=== PATIENT | female | born 1960 | race Caucasian/White ===

== ENCOUNTER → 2020-09-09 13:20 | Outpatient (BNVA) | payer OTHER, SELFPAY | PROVIDERS: Family Provider Family Medicine; Visit Provider Obstetrics & Gynecology | DX: N95.0 Postmenopausal bleeding (principal); Z12.4 Encounter for screening for malignant neoplasm of cervix; I10 Essential (primary) hypertension; N81.4 Uterovaginal prolapse, unspecified; L90.0 Lichen sclerosus et atrophicus | CPT/HCPCS: 88175; 88305 ==

== ENCOUNTER → 2022-07-21 11:44 | Outpatient (BNVA) | payer OTHER, SELFPAY | PROVIDERS: Family Provider Family Medicine; Visit Provider Family Medicine | DX: E03.9 Hypothyroidism, unspecified (principal); R63.4 Abnormal weight loss; M62.50 Muscle wasting and atrophy, not elsewhere classified, unspecified site; R60.9 Edema, unspecified | CPT/HCPCS: 80053; 82085; 82550; 84439; 84443; 85025; 86140 ==

== ENCOUNTER → 2022-07-22 14:20 | Outpatient (BNVA) | payer OTHER, SELFPAY | PROVIDERS: Family Provider Family Medicine; Visit Provider Family Medicine | DX: E11.9 Type 2 diabetes mellitus without complications (principal) | CPT/HCPCS: 83036 ==

== ENCOUNTER → 2022-10-19 16:36 | Outpatient (BNVA) | payer OTHER, SELFPAY | PROVIDERS: Family Provider Family Medicine; PCP Family Medicine; Visit Provider Family Medicine | DX: E11.9 Type 2 diabetes mellitus without complications (principal) | CPT/HCPCS: 80053; 83036 ==

== ENCOUNTER → 2023-02-04 11:26 | Outpatient (BNVA) | payer OTHER, SELFPAY | PROVIDERS: Family Provider Family Medicine; PCP Family Medicine; Visit Provider Family Medicine | DX: E11.9 Type 2 diabetes mellitus without complications (principal); E55.9 Vitamin D deficiency, unspecified | CPT/HCPCS: 80053; 83036 ==

== ENCOUNTER → 2023-02-05 08:31 | Outpatient (BNVA) | payer OTHER, SELFPAY | PROVIDERS: Family Provider Family Medicine; PCP Family Medicine; Visit Provider Family Medicine | DX: E55.9 Vitamin D deficiency, unspecified | CPT/HCPCS: 82306 ==

== ENCOUNTER → 2023-06-02 11:24 | Outpatient (BNVA) | payer OTHER, SELFPAY | PROVIDERS: Family Provider Family Medicine; PCP Family Medicine; Visit Provider Family Medicine | DX: E55.9 Vitamin D deficiency, unspecified (principal); E11.9 Type 2 diabetes mellitus without complications; I50.9 Heart failure, unspecified; I10 Essential (primary) hypertension; E03.9 Hypothyroidism, unspecified; I50.32 Chronic diastolic (congestive) heart failure; I87.2 Venous insufficiency (chronic) (peripheral); R74.8 Abnormal levels of other serum enzymes | CPT/HCPCS: 80053; 82652; 83036; 83880; 85025 ==

== ENCOUNTER 2023-06-11 08:15 | Outpatient (CLI) | payer OTHER, SELFPAY ==
--- NOTE | 2023-06-11 08:45 | USCV_ITS ---
Nikki Mercado Age: 62 Gender: F : 1960 Exam Date: 06/11/2023 08:52 Ordering Phys: Jacoby Spring MD Technologist: Derik Rodriguez [place] [facility] [place]: CHF BP: 170 / 100 HR: 88 Rhythm: Sinus Technical Quality: Adequate MEASUREMENTS (Male / Female) Normal Values 2D ECHO LV Ejection Fraction MOD 2C 34.9 % LV Ejection Fraction 2C AL 35.5 % LA Diameter 4.1 cm LA Width 3.6 cm LA Height 5.2 cm RA Width 3.9 cm RA Height 4.9 cm Aorta at Sinotubular Diameter 2.4 cm IVC Diameter 2.7 cm M-MODE Aortic Annulus Diameter 2.5 cm LA Ao Ratio MM 1.8 MV E Point Septal Separation 1.2 cm DOPPLER AV Peak Velocity 115.0 cm/s LVOT Peak Velocity 79.0 cm/s MV Peak Velocity 142.0 cm/s MV Area PHT 8.5 cm squared Mitral E to A Ratio 1.8 MV E' Velocity 57.0 cm/s Mitral E to MV E' Ratio 21.0 Mitral E to LV E' Lateral Ratio 15.8 Mitral E to LV E' Septal Ratio 32.5 TR Peak Velocity 450.3 cm/s TR Peak Gradient 81.1 mmHg TR Mean Velocity 312.7 cm/s TR Mean Gradient 45.0 mmHg TR Velocity Time Integral 128.4 cm Right Atrial Pressure 15.0 mmHg Pulmonary Artery Systolic Pressu 96.1 mmHg PV Peak Velocity 73.0 cm/s RV Acceleration Time 0.1 s RV Ejection Time 0.3 s RV AcT/ET 0.4 FINDINGS Left Ventricle Mildly increased left ventricular cavity size. Normal left ventricular wall thickness. Moderately decreased left ventricular systolic function. Global left ventricular hypokinesis. Left ventricular ejection fraction is estimated at 35 %. Grade I/IV diastolic dysfunction (abnormal relaxation filling pattern), normal to mildly elevated filling pressures. Right Ventricle Normal right ventricular size and systolic function. Severe pulmonary hypertension, RVSP 96.1 mmHg. Right Atrium Mildly increased right atrial size. Left Atrium Moderately increased left atrial size. Mitral Valve Structurally normal mitral valve. Mild-moderate mitral valve regurgitation. Aortic Valve Structurally normal trileaflet aortic valve. No aortic valve stenosis. No aortic valve regurgitation. Tricuspid Valve Structurally normal tricuspid valve. [id number] tricuspid valve regurgitation. Pulmonic Valve Pulmonic valve not well visualized. Mild pulmonary valve regurgitation. Pericardium Normal pericardium without effusion. Aorta Normal ascending aorta dimension. IVC Dilated IVC with decreased respiratory variation. CONCLUSIONS Mildly increased left ventricular cavity size. Normal left ventricular wall thickness. Moderately decreased left ventricular systolic function. Global left ventricular hypokinesis. Left ventricular ejection fraction is estimated at 35 %. Grade I/IV diastolic dysfunction (abnormal relaxation filling pattern), normal to mildly elevated filling pressures. Normal right ventricular size and systolic function. Severe pulmonary hypertension, RVSP 96.1 mmHg. Mildly increased right atrial size. Moderately increased left atrial size. Structurally normal mitral valve. Mild-moderate mitral valve regurgitation. Dilated IVC with decreased respiratory variation. There are no prior echocardiogram studies to compare. Dr. Javy Pardo MD (Electronically Signed) Final Date: 11 June 2023 13:14 S
== END 2023-06-11 08:16 | disposition home or self-care (01) ==
LOC: RAD 08:15
PROVIDERS: Family Provider Family Medicine; PCP Family Medicine; Visit Provider Family Medicine
DX: I50.9 Heart failure, unspecified (principal); I34.0 Nonrheumatic mitral (valve) insufficiency; I51.7 Cardiomegaly
CPT/HCPCS: 93306

== ENCOUNTER → 2023-06-24 14:57 | Outpatient (BNVA) | payer OTHER, SELFPAY | PROVIDERS: Family Provider Family Medicine; PCP Family Medicine; Visit Provider Internal Medicine | DX: R07.9 Chest pain, unspecified (principal); I10 Essential (primary) hypertension; I87.2 Venous insufficiency (chronic) (peripheral); I50.9 Heart failure, unspecified | CPT/HCPCS: 36415; 80048; 83880; 93005 ==

== ENCOUNTER 2023-07-16 10:24 | Outpatient (CLI) | payer OTHER, SELFPAY ==
[2023-07-16 12:12] LABS: Anion Gap 14.7 (5-19); Carbon Dioxide 40 mmol/L (22-29); Chloride 86 mmol/L (98-107); Glomerular Filtration Rate 25.4 mL/min (90-130); Glucose 182 mg/dL (65-115); NT Pro B Type Natriuretic Pept 5088 pg/mL (0-125); Sodium 138 mmol/L (136-145)
[2023-07-16 13:34] LABS: Osmolality Calculated 337 mOsm/kg (285-295)
[2023-07-16 13:36] LABS: Blood Urea Nitrogen 143 mg/dL (8-23); Potassium 2.7 mmol/L (3.5-5.1)
== END 2023-07-16 10:25 | disposition home or self-care (01) ==
LOC: LAB 10:27
PROVIDERS: Family Provider Family Medicine; PCP Family Medicine; Visit Provider Internal Medicine
DX: I50.20 Unspecified systolic (congestive) heart failure (principal)
CPT/HCPCS: 36415; 80048; 83880

== ENCOUNTER → 2023-07-21 10:36 | Outpatient (BNVA) | payer OTHER, SELFPAY | PROVIDERS: PCP Family Medicine; Visit Provider Nurse Practitioner Family | DX: I10 Essential (primary) hypertension (principal); I50.20 Unspecified systolic (congestive) heart failure | CPT/HCPCS: 36415; 80048; 83880 ==

== ENCOUNTER → 2023-07-28 09:22 | Outpatient (BNVA) | payer OTHER, SELFPAY | PROVIDERS: PCP Family Medicine; Visit Provider Internal Medicine | DX: I50.20 Unspecified systolic (congestive) heart failure (principal); I50.9 Heart failure, unspecified; I10 Essential (primary) hypertension; R58 Hemorrhage, not elsewhere classified | CPT/HCPCS: 80048; 85025; 85610 ==

== ENCOUNTER 2023-07-30 13:20 | Emergency (ER) | payer OTHER, SELFPAY ==
[2023-07-30 13:24] VITALS: BP 182/81; PULSE 85; RESP 16; TEMP 36.4; O2SAT 95
--- NOTE | 2023-07-30 13:24 | XRR_ITS ---
PROCEDURE INFORMATION: Exam: XR Chest Exam date and time: 07/30/2023 1:46 PM Age: 62 years old Clinical indication: Shortness of breath; Additional info: SOB TECHNIQUE: Imaging protocol: Radiologic exam of the chest. Views: 1 view. COMPARISON: No relevant prior studies available. FINDINGS: Lungs: Hypoventilatory changes in each lower lobe with a possible superimposed infiltrate laterally on the left. Pleural spaces: Slightly blunted costophrenic angles suggests small effusions. Heart/Mediastinum: Mild cardiomegaly accentuated by the AP positioning. Bones/joints: Unremarkable. XR/XR chest 1V portable [id number] IMPRESSION: Possible small effusions. Bibasilar atelectasis with possible superimposed left-sided infiltrate.
--- NOTE | 2023-07-30 13:27 | W.ED.GENADLT ---
HPI - General Adult General: Chief complaint: General Medical Stated complaint: dr cm, retaining fluid Time Seen by Provider: 07/30/23 13:25 History of Present Illness: 62-year-old female presents to the emergency department stating that she has been retaining more more fluid lately. She states that she has edema to her mid thighs she does take 2 mg of Bumex daily for the previous 1 week and states that it is not helping. She states she has seen Dr. Spring and Dr. Ricketts the vacuum filter operator who advised her to come to the emergency department to be evaluated. Her significant other who is with her in the room states that her ejection fraction was 35% previously she states that they were attempting to reevaluate for additional worsening over her congestive heart failure but have been unable to given the excess fluid volume. She states that she is had a 14 pound weight gain in the previous 1 week. She denies chest pain or shortness of breath at present. She states that she does have bilateral lower leg pain due to all the fluid. She states her pain currently is a 2 out of 10 pressure and aching type pain. Review of Systems General: Reports: 10 or more systems reviewed and unremarkable except in HPI and below Card: Reports: edema and swelling of feet/ankles [facility]: Medical History Venous insufficiency (chronic) (peripheral) Cellulitis and abscess of buttock Cellulitis and abscess of buttock Surgical History S/P cholecystectomy 1990s in [place], [place] Family History Father CAD (coronary artery disease) Cancer lung cancer Brother Diabetes Denies family history of Ovarian cyst Hyperlipidemia Chronic kidney disease (CKD) Anesthesia complication Family history of thyroid problem Bleeding disorder Hypertension Stroke Social History Smoking and tobacco/nicotine status: never used tobacco/nicotine Alcohol intake: never Substance/Drug Use: never Physical Exam Narrative: EXAM NARRATIVE: Constitutional: the patient appears well nourished and of normal development. Vital signs as documented. No acute distress at present. Alert and oriented-to person, place, time and situation. Head, eyes, ears, nose, mouth, throat: Normocephalic, atraumatic. Pupils-equal, round, reactive to light. No scleral icterus. Normal-appearing external ears. Normal appearing nasal turbinates, no drainage. No obvious oral lesions, posterior oropharynx without erythema or exudates. Neck: Supple, trachea is midline, no lymphadenopathy, no jugular venous distension, thyromegaly, or carotid bruits. Carotid upstrokes are brisk bilaterally. Lungs: clear to auscultation to all lung amaro. Symmetrical rise and fall of chest, no obvious signs of increased work of breathing at present. Cardiac: Regular rate and rhythm, positive S1, S2. No murmurs, rubs or gallops that I can appreciate. 3+ bilateral lower extremity pitting edema to the mid thigh Abdomen: Soft, non-tender to palpation, normal active bowel sounds to all quadrants. No palpable masses, no organomegaly and abdominal bruits. Extremities: 2+ pulses in the upper extremities that are equal bilaterally, 2+ pulses in the lower extremities that are equal bilaterally. 3+ bilateral lower extremity pitting edema extending to the mid thigh bilaterally. Moves all extremities well, sensation to all extremities are noted. Skin: Warm, dry, intact. Course ED course: I did an extensive discussion with the patient regarding her labs today as they compared to July 28 and July 16 as well as July 21 it does appear that she has had significant improvement in her GFR which is 45.8 today I did speak with her about her BUN which is improved from 73 and was previously 81. Her creatinine today is 1.2 and previously was 1.3 I did speak with her primary care physician Dr. Spring and advised him of our plan of care which was provide her Lasix 80 mg today and monitor urine output I advised that I would have the patient increase her Bumex 2 mg to twice a day as well as provide her potassium supplementation at the time of discharge to be 20 meq by mouth daily he states that she does have an appointment to follow-up with him next week and states that he does agree with this plan I have advised the patient of his recommendations and at this time she is accepting of that I also at the request of Dr. Spring have advised the patient that she needs to also follow-up with the vacuum filter operator as Dr. Spring has recommended to the patient several times. Reevaluation(s): Reevaluation #1: Patient has been responsive to our IV Lasix and after discussion with Dr. Spring I will discharge the patient with the Bumex increased dosing and supplemental potassium replacement as noted. Time: 15:34 Vital Signs: Vital signs: Vital Signs Temperature 97.5 F L 07/30/23 16:04 Pulse Rate 78 07/30/23 16:04 Respiratory Rate 16 07/30/23 16:04 Blood Pressure 135/74 07/30/23 16:04 Pulse Oximetry 99 07/30/23 16:04 Oxygen Delivery Me thod Room Air 07/30/23 15:23 MDM - General Adult Medical Decision Making 62-year-old female with history of congestive heart failure with an EF of 35% presents with 14 pound weight gain in the previous 1 week despite her continuous use of Bumex and previous use of furosemide. Was seen by Dr. Ricketts her vacuum filter operator and Dr. Spring her primary care and sent to the emergency department to be evaluated for possible admission for treatment of her fluid volume excess. Differential Diagnosis CHF exacerbation, electrolyte imbalance, acute on chronic renal insufficiency, Medical Records I reviewed the patient's medical records. Lab Data I reviewed the patient's lab results. 07/30/23 13:54 07/30/23 13:54 Radiology Impressions Chest X-Ray 07/30/23 13:24 IMPRESSION: Possible small effusions. Bibasilar atelectasis with possible superimposed left-sided infiltrate. Laboratory Results WBC 4.31 10^3/uL (3.29-11.43) 07/30/23 13:54 RBC 3.33 10^6/uL (3.85-5.65) L 07/30/23 13:54 Hgb 10.00 g/dL (11.27-16.99) L 07/30/23 13:54 Hct 30.2 % (36-47) L 07/30/23 13:54 MCV 90.7 fl (85-98) 07/30/23 13:54 MCH 30.0 pg (27-33) 07/30/23 13:54 MCHC 33.1 g/dL (30-55) 07/30/23 13:54 RDW 13.3 % (12.1-15.1) 07/30/23 13:54 Plt Count 220 10^3/cmm (157-399) 07/30/23 13:54 MPV 9.8 fL (7.4-10.4) 07/30/23 13:54 Neut % (Auto) 60.1 % 07/30/23 13:54 Lymph % (Auto) 23.7 % 07/30/23 13:54 Yates % (Auto) 12.5 % 07/30/23 13:54 Eos % (Auto) 2.6 % 07/30/23 13:54 Baso % (Auto) 0.9 % 07/30/23 13:54 Neut # (Auto) 2.59 10^3/uL (1.8-7.7) 07/30/23 13:54 Lymph # (Auto) 1.0 10^3/uL (0.8-4.8) 07/30/23 13:54 Yates # (Auto) 0.5 10^3/uL (0.2-0.9) 07/30/23 13:54 Eos # (Auto) 0.1 10^3/uL (0.0-0.8) 07/30/23 13:54 Baso # (Auto) 0.0 10^3/uL (0.0-0.1) 07/30/23 13:54 Nucleated RBC % (auto) 0 % 07/30/23 13:54 Nucleated RBCs # 0.0 /100WBC 07/30/23 13:54 Sodium 141 mmol/L (136-145) 07/30/23 13:54 Potassium 4.1 mmol/L (3.5-5.1) 07/30/23 13:54 Chloride 102 mmol/L (98-107) 07/30/23 13:54 Carbon Dioxide 26 mmol/L (22-29) 07/30/23 13:54 Anion Gap 17.1 (5-19) 07/30/23 13:54 BUN 73 mg/dL (8-23) H 07/30/23 13:54 Creatinine 1.2 mg/dL (0.5-0.9) H 07/30/23 13:54 GFR Calculation 45.8 mL/min (90-130) L 07/30/23 13:54 Glucose 171 mg/dL (65-115) H 07/30/23 13:54 Calculated Osmolality 318 mOsm/kg (285-295) H 07/30/23 13:54 Calcium 9.4 mg/dL (8.5-10.5) 07/30/23 13:54 Total Bilirubin 0.4 mg/dL (0.15-1.2) 07/30/23 13:54 AST 53 U/L (0-32) H 07/30/23 13:54 ALT 69 U/L (0-33) H 07/30/23 13:54 Alkaline Phosphatase 450 U/L (35-105) H 07/30/23 13:54 Troponin T Baseline 80 ng/L (0-10) H 07/30/23 13:54 NT-Pro-B Natriuret Pep 25245 pg/mL (0-125) H 07/30/23 13:54 Total Protein 6.7 g/dL (6.6-8.7) 07/30/23 13:54 Albumin 3.7 g/dL (3.5-5.2) 07/30/23 13:54 Globulin 3.0 g/dL (1.3-4.6) 07/30/23 13:54 All radiology interpretation(s) finalized by discharge EKG Data EKG 1: Interpretation: Twelve-lead EKG obtained at 1335 and reviewed at 1337 demonstrates sinus rhythm with a ventricular rate of 83 bpm, IA interval 166, QRS duration 110, QT 393, QTc [address] elevation or depression at present to demonstrate acute ischemia or infarction. Computer generated interpretation: Chest X-Ray 07/30/23 13:24 IMPRESSION: Possible small effusions. Bibasilar atelectasis with possible superimposed left-sided infiltrate. EKG 2: Interpretation: Twelve-lead EKG obtained at 1526 reviewed at 1530 demonstrates sinus rhythm with a ventricular rate of 78 bpm, IA interval 158, QRS duration 111, QT 406 and QTc 439 at present there is no ST elevation or depression to demonstrate acute ischemia or infarction at present Computer generated interpretation: Chest X-Ray 07/30/23 13:24 IMPRESSION: Possible small effusions. Bibasilar atelectasis with possible superimposed left-sided infiltrate. Discharge Plan Discharge Patient Disposition: Home Clinical Impression: Edema Qualifiers: Edema type: localized Qualified Code(s): R60.0 - Localized edema Chronic renal insufficiency Qualifiers: Chronic kidney disease stage: unspecified stage Qualified Code(s): N18.9 - Chronic kidney disease, unspecified Condition: Stable Prescriptions: New bumetanide 2 mg tablet 2 mg PO BID Qty: 30 0RF potassium chloride 20 mEq tablet extended release 20 meq PO DAILY Qty: 20 0RF No Action amlodipine 10 mg tablet 10 mg PO DAILY Qty: 90 3RF (DME) blood-glucose meter Kit See Rx Instructions .Route Qty: 1 0RF Rx Instructions: use to check blood sugar daily cholecalciferol (vitamin D3) 1,250 mcg (50,000 unit) capsule 1,250 mcg PO .weekly Qty: 12 1RF Rx Instructions: ON WEDNESDAY bumetanide 2 mg tablet 2 mg PO DAILY Qty: 90 3RF glipizide 5 mg tablet 1.25 mg PO DAILY Discharge Orders: Discharge ED (Routine); Ordered 07/30/23 Ordered By: Jay Pederson Referrals: Jacoby Spring MD [Primary Care Provider] - Discharge Diet: Low Salt Discharge Activity: Resume usual activity Patient Instructions: Opioid Safety, Pain Management Activity Restrictions/Additional Instructions: Activity Restrictions/Additional Instructions: Thank you for choosing [facility] for your healthcare needs today. Please realize that you were seen in the Emergency Department and that we are providing you with an emergency medical screening exam and this may not be a complete and all inclusive of all the testing and or medical work-up that you may need to determine your ailment or severity of your illness. It is very important that you follow-up as instructed with your Primary care provider or Specialist for additional evaluation and to discuss your medical treatment plan. You may return to the Emergency Department should you have concerns or if your condition changes or worsens in any way. Coding Level of Care Code ED Conduit Reamer Operator for Brandan Marino
--- NOTE | 2023-07-30 13:35 | ECG_ITS ---
[facility] Test Date: 2023-07-30 Pat Name: Nikki Mercado Department: Room: Gender: Female Wrecking Supervisor: : 1960 Requested By: Addison Salazar Order Number: [id number] Karlo MD: Carlos Mas M.D. Measurements Intervals [place] Rate: 83 P: 48 NE: 166 QRS: -2 QRSD: 110 T: 36 QT: 393 QTc: 463 Interpretive Statements SINUS RHYTHM POSSIBLE LEFT ATRIAL ENLARGEMENT [-0.1mV P-WAVE IN V1/V2] Compared to ECG 06/24/2023 15:04:59 Intraventricular conduction delay no longer present T-wave abnormality no longer present Electronically Signed On 07-30-2023 14:55:30 PUBLIC INFORMATION SPECIALIST by Carlos Mas M.D. [email or web address] [id number]
[2023-07-30 14:00] LABS: Basophils % 0.9 %; Eosinophils # 0.1 10^3/uL (0.0-0.8); Eosinophils % 2.6 %; Hematocrit 30.2 % (36-47); Lymphocytes % 23.7 %; Mean Corpuscular HGB Conc 33.1 g/dL (30-55); Mean Corpuscular Volume 90.7 fl (85-98); Mean Platelet Volume 9.8 fL (7.4-10.4); Monocytes # 0.5 10^3/uL (0.2-0.9); Monocytes % 12.5 %; Neutrophils # 2.59 10^3/uL (1.8-7.7); Neutrophils % 60.1 %; Nucleated Red Blood Cells % 0 %; Platelet Count 220 10^3/cmm (157-399); Red Blood Count 3.33 10^6/uL (3.85-5.65); Red Cell Distribution Width 13.3 % (12.1-15.1); White Blood Count 4.31 10^3/uL (3.29-11.43)
[2023-07-30 14:16] LABS: Troponin(5th) Baseline 80 ng/L (0-10)
[2023-07-30 14:23] LABS: Alanine Aminotransferase 69 U/L (0-33); Albumin Level 3.7 g/dL (3.5-5.2); Alkaline Phosphatase 450 U/L (35-105); Anion Gap 17.1 (5-19); Aspartate Amino Transferase 53 U/L (0-32); Blood Urea Nitrogen 73 mg/dL (8-23); Calcium 9.4 mg/dL (8.5-10.5); Carbon Dioxide 26 mmol/L (22-29); Chloride 102 mmol/L (98-107); Glomerular Filtration Rate 45.8 mL/min (90-130); Glucose 171 mg/dL (65-115); NT Pro B Type Natriuretic Pept 11550 pg/mL (0-125); Osmolality Calculated 318 mOsm/kg (285-295); Potassium 4.1 mmol/L (3.5-5.1); Sodium 141 mmol/L (136-145); Total Bilirubin 0.4 mg/dL (0.15-1.2); Total Protein 6.7 g/dL (6.6-8.7)
[2023-07-30 14:38] VITALS: BP 135/74; PULSE 84; RESP 14; O2SAT 96
[2023-07-30] MEDS: FUROsemide 10 mg/mL SDV 10mL 80 MG IVP (14:43)
[2023-07-30 15:23] VITALS: BP 135/74; PULSE 76; RESP 13; O2SAT 97
--- NOTE | 2023-07-30 15:24 | ECG_ITS ---
[facility] Test Date: 2023-07-30 Pat Name: Nikki Mercado Department: Room: Gender: Female Poster: : 1960 Requested By: Addison Salazar Order Number: [id number] Karlo MD: Carlos Mas M.D. Measurements Intervals [place] Rate: 78 P: 34 CA: 158 QRS: -3 QRSD: 111 T: 29 QT: 406 QTc: 464 Interpretive Statements SINUS RHYTHM POSSIBLE LEFT ATRIAL ENLARGEMENT [-0.1mV P-WAVE IN V1/V2] MODERATE INTRAVENTRICULAR CONDUCTION DELAY [110+ ms QRS DURATION] Compared to ECG 07/30/2023 13:35:07 Intraventricular conduction delay now present Electronically Signed On 07-30-2023 21:47:40 STEEL BARREL REAMER by Carlos Mas M.D. [id number]
[2023-07-30 15:44] VITALS: PULSE 78; RESP 16; O2SAT 99
[2023-07-30 16:04] VITALS: BP 135/74; PULSE 78; RESP 16; TEMP 36.4; O2SAT 99
== END 2023-07-30 16:05 | disposition home or self-care (01) ==
PROVIDERS: Emergency Medicine; Emergency Provider Internal Medicine; PCP Family Medicine
DX: R60.0 Localized edema (principal); N18.9 Chronic kidney disease, unspecified
CPT/HCPCS: 71045; 80053; 83880; 84484; 85025; 93005; 96374; 99285; J1940

== ENCOUNTER → 2023-08-04 12:14 | Outpatient (BNVA) | payer OTHER, SELFPAY | PROVIDERS: PCP Family Medicine; Visit Provider Family Medicine | DX: I10 Essential (primary) hypertension (principal); E11.9 Type 2 diabetes mellitus without complications; I50.20 Unspecified systolic (congestive) heart failure; I87.2 Venous insufficiency (chronic) (peripheral) | CPT/HCPCS: 80048; 83036 ==

== ENCOUNTER → 2023-08-10 08:09 | Outpatient (BNVA) | payer OTHER, SELFPAY | PROVIDERS: PCP Family Medicine; Visit Provider Family Medicine | DX: I10 Essential (primary) hypertension (principal) | CPT/HCPCS: 80048 ==

== ENCOUNTER → 2023-08-17 08:18 | Outpatient (BNVA) | payer OTHER, SELFPAY | PROVIDERS: PCP Family Medicine; Visit Provider Family Medicine | DX: I50.20 Unspecified systolic (congestive) heart failure (principal); I50.9 Heart failure, unspecified; I10 Essential (primary) hypertension | CPT/HCPCS: 80048; 83880; 85025 ==

== ENCOUNTER → 2023-09-01 08:06 | Outpatient (BNVA) | payer OTHER, SELFPAY | PROVIDERS: PCP Family Medicine; Visit Provider Family Medicine | DX: I50.9 Heart failure, unspecified (principal); I10 Essential (primary) hypertension; I50.20 Unspecified systolic (congestive) heart failure | CPT/HCPCS: 80048; 83880 ==

== ENCOUNTER → 2023-09-08 11:52 | Outpatient (BNVA) | payer OTHER, SELFPAY | PROVIDERS: PCP Family Medicine; Visit Provider Family Medicine | DX: L02.31 Cutaneous abscess of buttock (principal); L03.317 Cellulitis of buttock; I50.9 Heart failure, unspecified; E11.9 Type 2 diabetes mellitus without complications; I87.2 Venous insufficiency (chronic) (peripheral); E03.9 Hypothyroidism, unspecified; D50.9 Iron deficiency anemia, unspecified; D50.8 Other iron deficiency anemias; N17.9 Acute kidney failure, unspecified | CPT/HCPCS: 80053; 82728; 83540; 84443; 85025 ==

== ENCOUNTER → 2023-09-21 15:52 | Outpatient (BNVA) | payer OTHER, SELFPAY | PROVIDERS: PCP Family Medicine; Visit Provider Family Medicine | DX: Z01.818 Encounter for other preprocedural examination (principal) | CPT/HCPCS: 80053; 85025 ==

== ENCOUNTER 2023-09-29 06:08 | Day surgery (SDC) | payer OTHER, SELFPAY ==
--- NOTE | 2023-09-29 06:25 | W.PM.OPSUD ---
Surgery/Procedure H&P Update DATE OF PROCEDURE: September 29, 2023 DATE H&P PERFORMED: 09/10/23 H&P UPDATE INFORMATION: I have reviewed H&P completed within last 30 days, I have examined patient prior to procedure and No changes to prior documentation PLANNED PROCEDURE: Operation Date: 09/29/23 07:30 Proposed Procedures p EGD(Not Applicable) - DO denny David Colonoscopy(Not Applicable) - Karthikeyan Iyer DO
--- NOTE | 2023-09-29 06:40 | ANES.PREANE2 ---
Pre-Anesthetic Assessment Height/Weight: Height 1.57 m Operation Date: 09/29/23 07:30 Proposed Procedures p EGD(Not Applicable) - Karthikeyan Iyer DO s Colonoscopy(Not Applicable) - Karthikeyan Iyer DO Familial anesthetic complications: None Was Beta Stephanie taken within 24 hours: N/A Was Clonidine taken within 24 hours: N/A Social No alcohol and No tobacco Exam alert, oriented x 3 and regular rate & rhythm Decreased breath sounds Airway Submandibular: within normal limits Cervical ROM: within normal limits Mallampati: Class III Dentition: full History/ROS No significant history except as noted and No significant complaints Pulmonary Othopnea Sleeps in a chair Pulmonary HTN CV/HEM Anemia, Coronary Artery Disease, Congestive Heart Failure, Hypertension and Murmur CONCLUSIONS Mildly increased left ventricular cavity size. Normal left ventricular wall thickness. Moderately decreased left ventricular systolic function. Global left ventricular hypokinesis. Left ventricular ejection fraction is estimated at 35 %. Grade I/IV diastolic dysfunction (abnormal relaxation filling pattern), normal to mildly elevated filling pressures. Normal right ventricular size and systolic function. Severe pulmonary hypertension, RVSP 96.1 mmHg. Mildly increased right atrial size. Moderately increased left atrial size. Structurally normal mitral valve. Mild-moderate mitral valve regurgitation. Dilated IVC with decreased respiratory variation. There are no prior echocardiogram studies to compare. Chronic Renal Insufficiency Hepatic None reported GI None reported Metabolic Diabetes Mellitus [facility] [place] Scoliosis Neuropsych Neuropathy Anesthetic Plan ASA status: 3 Anesthesia: Anesthesia Evaluation, General and MAC Risk of > 500 ml blood loss (7ml/kg in children): No Medications/Allergies Home Medications Medication Instructions Recorded Confirmed Last Taken Type blood-glucose meter #1 ea 07/22/22 09/29/23 09/27/23 Rx glipizide 5 mg tablet 1.25 mg PO DAILY 07/30/23 09/29/23 09/27/23 History multivitamin-ferrous 1 tab PO DAILY 08/18/23 09/29/23 09/27/23 History fumarate-folic acid 18 mg-400 mcg tablet potassium chloride 20 mEq 20 meq PO DAILY #90 tabs 08/18/23 09/29/23 09/27/23 Rx tablet,extended release bumetanide 2 mg tablet 2 mg PO DAILY #90 tabs 09/08/23 09/29/23 09/27/23 Rx ferrous sulfate 325 mg (65 mg 325 mg PO DAILY #90 tabs 09/08/23 09/29/23 09/27/23 Rx iron) tablet,delayed release metolazone 2.5 mg tablet 2.5 mg PO DIRECTED #90 tabs 09/08/23 09/29/23 09/27/23 Rx spironolactone 25 mg tablet 25 mg PO DAILY excess fluid #30 09/08/23 09/29/23 09/27/23 Rx (Aldactone) tabs cholecalciferol (vitamin D3) 1,250 1,250 mcg PO DAILY 09/27/23 09/29/23 09/27/23 History mcg (50,000 unit) capsule Allergies Allergy/AdvReac Type Severity Reaction Status Date / Time sweet potato Allergy ADR-Itching Verified 09/29/23 06:45 [facility] Anesthesia Medical History Acute renal failure Venous insufficiency (chronic) (peripheral) Cellulitis and abscess of buttock Cellulitis and abscess of buttock Surgical History S/P cholecystectomy 1990s in [place], [place] Family History Father CAD (coronary artery disease) Cancer lung cancer Brother Diabetes Denies family history of Ovarian cyst Hyperlipidemia Chronic kidney disease (CKD) Anesthesia complication Family history of thyroid problem Bleeding disorder Hypertension Stroke Social History Smoking and tobacco/nicotine status: never used tobacco/nicotine Alcohol intake: never Substance/Drug Use: never Data Anesthesia Cardiac Studies: Echocardiogram 06/11/23
[2023-09-29 06:45] VITALS: BP 178/94; PULSE 82; RESP 18; TEMP 36.2; O2SAT 99; BMI 30.2
[2023-09-29 06:47] LABS: Glucose Point of Care 130 mg/dL (70-110)
[2023-09-29] MEDS: sodium chloride 0.9% 1,000 ML 30 ML IV (06:48)
[2023-09-29 08:00] VITALS: BP 158/69; PULSE 70; RESP 12; TEMP 36.1; O2SAT 100
[2023-09-29 08:10] VITALS: BP 155/71; PULSE 70; RESP 16; O2SAT 99
--- NOTE | 2023-09-29 08:30 | ANE.PACU2 ---
Inpatient post-anesthesia follow up: Airway intact: Yes Vital signs: Temperature 97 F Pulse Rate 70 Respiratory Rate 16 Blood Pressure 155/71 Pulse Oximetry 99 Oxygen Delivery Me thod Room Air Oxygen Flow Rate Fraction of Inspir ed Oxygen Hydration adequate: Yes Nausea and vomiting: No Pain level: 1 Mental status: Baseline
== END 2023-09-29 08:30 | disposition home or self-care (01) ==
PROVIDERS: PCP Family Medicine; Visit Provider Surgery
PROC: 0DJ08ZZ Inspection of Upper Intestinal Tract, Via Natural or Artificial Opening Endoscopic (ICD-10-PCS; CPT 43235; principal; 2023-09-29 07:30)
PROC: 0DJD8ZZ Inspection of Lower Intestinal Tract, Via Natural or Artificial Opening Endoscopic (ICD-10-PCS; CPT 45378; 2023-09-29 07:30)
DX: Z12.11 Encounter for screening for malignant neoplasm of colon (principal); D50.8 Other iron deficiency anemias; K31.7 Polyp of stomach and duodenum; I25.10 Atherosclerotic heart disease of native coronary artery without angina pectoris; I11.0 Hypertensive heart disease with heart failure; I50.9 Heart failure, unspecified; E11.40 Type 2 diabetes mellitus with diabetic neuropathy, unspecified
CPT/HCPCS: 36416; 43239; 45378; 82962; 88305; J2704; J7030

== ENCOUNTER → 2023-10-05 09:37 | Outpatient (BNVA) | payer OTHER, SELFPAY | PROVIDERS: PCP Family Medicine; Visit Provider Family Medicine | DX: I10 Essential (primary) hypertension (principal) | CPT/HCPCS: 80053; 85025 ==

== ENCOUNTER → 2023-10-28 13:39 | Outpatient (BNVA) | payer OTHER, SELFPAY | PROVIDERS: PCP Family Medicine; Visit Provider Family Medicine | DX: E11.9 Type 2 diabetes mellitus without complications (principal); D50.8 Other iron deficiency anemias; I50.9 Heart failure, unspecified; N17.9 Acute kidney failure, unspecified; I87.2 Venous insufficiency (chronic) (peripheral) | CPT/HCPCS: 80053; 82668; 85025 ==

== ENCOUNTER → 2023-11-09 10:38 | Outpatient (BNVA) | payer OTHER, SELFPAY | PROVIDERS: PCP Family Medicine; Visit Provider Family Medicine | DX: I50.9 Heart failure, unspecified (principal); E55.9 Vitamin D deficiency, unspecified; N17.9 Acute kidney failure, unspecified; D50.8 Other iron deficiency anemias | CPT/HCPCS: 80053; 82607; 82652; 83883; 84155; 84165 ==

== ENCOUNTER 2023-11-26 10:00 | Outpatient (CLI) | payer OTHER, SELFPAY ==
[2023-11-26 10:54] LABS: Basophils % 0.8 %; Eosinophils # 0.2 10^3/uL (0.0-0.8); Eosinophils % 4.3 %; Hematocrit 27.1 % (36-47); Lymphocytes # 1.1 10^3/uL (0.8-4.8); Mean Corpuscular HGB Conc 32.1 g/dL (30-55); Mean Corpuscular Hemoglobin 32.1 pg (27-33); Mean Platelet Volume 9.4 fL (7.4-10.4); Monocytes # 0.7 10^3/uL (0.2-0.9); Monocytes % 13.4 %; Neutrophils # 2.91 10^3/uL (1.8-7.7); Neutrophils % 59.1 %; Nucleated Red Blood Cells % 0 %; Platelet Count 248 10^3/cmm (157-399); Red Blood Count 2.71 10^6/uL (3.85-5.65); Red Cell Distribution Width 13.2 % (12.1-15.1); White Blood Count 4.92 10^3/uL (3.29-11.43)
[2023-11-26 11:09] LABS: Albumin Level 3.6 g/dL (3.5-5.2); Anion Gap 14.3 (5-19); Calcium 9.3 mg/dL (8.5-10.5); Carbon Dioxide 28 mmol/L (22-29); Chloride 104 mmol/L (98-107); Glomerular Filtration Rate 23.9 mL/min (90-130); Glucose 127 mg/dL (65-115); Phosphorus 4.1 mg/dL (2.5-4.5); Potassium 4.3 mmol/L (3.5-5.1); Sodium 142 mmol/L (136-145)
[2023-11-26 11:17] LABS: Urine Creatinine 40 mg/dL (28-217)
[2023-11-26 11:33] LABS: Blood Urea Nitrogen 82 mg/dL (8-23)
[2023-11-26 11:33] LABS: UPRO/UCREAT Ratio 5.95 mg/mg CR; Urine Protein Random 238 mg/dL
[2023-11-26 11:35] LABS: Urine Appearance Clear (CLEAR); Urine Color Yellow (Yellow)
[2023-11-26 11:36] LABS: Bilirubin Urine Neg (Negative); Blood Urine 2+ (Negative); Glucose Urine UA Norm (Normal); Ketones Urine Negative (Negative); Leukocyte Esterase Urine Negative (Negative); Nitrate Urine Negative (Negative); Protein Urine 2+ (Negative); Urobilinogen Urine Norm (Negative); pH Urine 6 (5-7)
[2023-11-26 11:37] LABS: Add Urine Culture? No; Bacteria Urine TRACE /hpf; RBC Urine 0-4 /hpf (0-2); Squamous Epithelial Cell Urine 0-4 /hpf (0-5); WBC Urine 0-4 /hpf (0-5)
== END 2023-11-26 10:01 | disposition home or self-care (01) ==
PROVIDERS: PCP Family Medicine; Visit Provider Family Medicine
DX: N18.4 Chronic kidney disease, stage 4 (severe) (principal)
CPT/HCPCS: 36415; 80069; 81001; 82570; 84156; 85025

== ENCOUNTER 2023-12-03 07:00 | Outpatient (CLI) | payer OTHER, SELFPAY ==
--- NOTE | 2023-12-03 07:15 | US_ITS ---
WS: [id number] RENAL ULTRASOUND HISTORY: CKD STAGE 4 COMPARISON: None available. TECHNIQUE: 2-D and color Doppler imaging of the kidney submitted. Right kidney: 10.9 cm x 5.1 cm x 6.2 cm. Cortex: 1.0 cm Normal size kidney. Renal pelvis cyst 2.9 x 2.1 x 3.4 cm in the lower pole. No solid mass or obstruct ion. Left kidney: 10.4 cm x 4.9 cm x 5.1 cm. Cortex: 1.3 cm Normal echogenicity with no hydronephrosis or mass. Aorta: Normal. Urinary Bladder: Normal distention. US/US renal BI* [id number] IMPRESSION: 1. No significant renal atrophy. 2. No renal obstruction. 3. Pelvic cyst RIGHT kidney.
== END 2023-12-03 07:01 | disposition home or self-care (01) ==
LOC: RAD 07:00
PROVIDERS: PCP Family Medicine; Visit Provider Internal Medicine
DX: N18.4 Chronic kidney disease, stage 4 (severe) (principal)
CPT/HCPCS: 76770

== ENCOUNTER 2023-12-09 10:36 | Oncology outpatient (recurring) (ONCR) | payer OTHER, SELFPAY ==
[2023-12-09 12:37] LABS: Reticulocyte % 1.3 % (0.5-2.0)
[2023-12-09 12:38] LABS: Basophils % 0.6 %; Eosinophils # 0.2 10^3/uL (0.0-0.8); Eosinophils % 3.4 %; Hematocrit 27.2 % (36-47); Lymphocytes # 1.3 10^3/uL (0.8-4.8); Mean Corpuscular HGB Conc 32.4 g/dL (30-55); Mean Corpuscular Volume 98.9 fl (85-98); Mean Platelet Volume 9.8 fL (7.4-10.4); Monocytes # 0.6 10^3/uL (0.2-0.9); Monocytes % 10.5 %; Neutrophils # 3.22 10^3/uL (1.8-7.7); Neutrophils % 61.3 %; Nucleated Red Blood Cells % 0 %; Platelet Count 235 10^3/cmm (157-399); Red Blood Count 2.75 10^6/uL (3.85-5.65); Red Cell Distribution Width 12.2 % (12.1-15.1); White Blood Count 5.25 10^3/uL (3.29-11.43)
[2023-12-09 12:39] LABS: Erythrocyte Sedimentation Rate 23 mm/hr (0-15)
[2023-12-09 13:08] LABS: LAB Peripheral Smear Sent for Review
[2023-12-09 13:17] LABS: Alanine Aminotransferase 24 U/L (0-33); Albumin Level 3.6 g/dL (3.5-5.2); Alkaline Phosphatase 225 U/L (35-105); Anion Gap 16.6 (5-19); Aspartate Amino Transferase 19 U/L (0-32); Calcium 9.4 mg/dL (8.5-10.5); Carbon Dioxide 28 mmol/L (22-29); Chloride 102 mmol/L (98-107); Free T4 Free Thyroxine 1.31 ng/dL (0.82-1.77); Globulin 3.1 g/dL (1.3-4.6); Glomerular Filtration Rate 23.9 mL/min (90-130); Glucose 122 mg/dL (65-115); Lactate Dehydrogenase 265 U/L (135-214); Osmolality Calculated 324 mOsm/kg (285-295); Potassium 4.6 mmol/L (3.5-5.1); Sodium 142 mmol/L (136-145); Thyroid Stimulating Hormone 0.95 uIU/mL (0.27-4.20); Total Bilirubin 0.3 mg/dL (0.15-1.2); Total Protein 6.7 g/dL (6.6-8.7)
[2023-12-09 13:21] LABS: Blood Urea Nitrogen 93 mg/dL (8-23)
[2023-12-09 13:35] LABS: Ferritin 87 ng/mL (15-150); Iron 59 ug/dL (37-145); Percent Saturation 17.7 % (20-50); Total Iron Binding Capacity 332 mcg/dl; Unsaturated Iron Binding 273 ug/dL (112-347)
[2023-12-09 13:39] LABS: Folate Level > 20.0 ng/mL (4.8-37.3)
[2023-12-09 13:51] LABS: 25 Hydroxy Vitamin D 42 ng/mL (30-100); Vitamin B12 1029 pg/mL (232-1245)
[2023-12-10 08:31] LABS: PROTEIN, TOTAL 6.4 g/dL (6.1-8.1)
[2023-12-10 15:49] LABS: ALBUMIN 3.5 g/dL (3.8-4.8); ALPHA 1 GLOBULIN 0.3 g/dL (0.2-0.3); ALPHA 2 GLOBULIN 0.7 g/dL (0.5-0.9); BETA 1 GLOBULIN 0.5 g/dL (0.4-0.6); BETA 2 GLOBULIN 0.5 g/dL (0.2-0.5)
[2023-12-12 15:10] LABS: Copper Level 133 mcg/dL (70-175)
[2023-12-14 13:48] LABS: Methylmalonic Acid 401 nmol/L (87-318)
[2023-12-17 13:14] LABS: Soluble Transferrin Receptor 1.39 mg/L (0.76-1.76)
== END 2024-01-02 23:59 | disposition home or self-care (01) ==
PROVIDERS: PCP Family Medicine; Visit Provider Internal Medicine
DX: D64.9 Anemia, unspecified (principal)
CPT/HCPCS: 36415; 80053; 82306; 82525; 82607; 82728; 82746; 83540; 83550; 83615; 83921; 84155; 84165; 84238; 84439; 84443; 85025; 85045; 85651; 86140; 86335

== ENCOUNTER 2023-12-17 10:13 | Outpatient (CLI) | payer OTHER, SELFPAY ==
[2023-12-17 11:14] LABS: Total Volume, Urine 2050 mL; Urine Total Protein 189.3 mg/dL (0-150); Urine Total Protein 24 Hour 3880.7 mg/24hr (0-150)
== END 2023-12-17 10:14 | disposition home or self-care (01) ==
LOC: LAB 10:15
PROVIDERS: PCP Family Medicine; Visit Provider Internal Medicine
DX: D64.9 Anemia, unspecified (principal)
CPT/HCPCS: 84156

== ENCOUNTER 2024-01-14 10:15 | Outpatient (CLI) | payer OTHER, SELFPAY ==
[2024-01-14 10:59] LABS: Total Volume, Urine 2200 mL
[2024-01-14 11:12] LABS: Urine Total Protein 205.9 mg/dL (0-150); Urine Total Protein 24 Hour 4529.8 mg/24hr (0-150)
[2024-01-15 22:03] LABS: CREATININE, 24 HOUR URINE 0.92 g/24 h (0.50-2.15); PROTEIN, TOTAL, 24 HR UR 4796 mg/24 h (<150); Protein/Creatinine Ratio 5190 mg/g creat (<150)
== END 2024-01-14 10:16 | disposition home or self-care (01) ==
LOC: LAB 10:16
PROVIDERS: PCP Family Medicine; Visit Provider Internal Medicine Medical Oncology
DX: D64.9 Anemia, unspecified (principal)
CPT/HCPCS: 82570; 84156; 84166; 86335

== ENCOUNTER 2024-02-10 11:56 | Outpatient (CLI) | payer OTHER, SELFPAY ==
[2024-02-10 12:33] LABS: Basophils # 0.1 10^3/uL (0.0-0.1); Basophils % 0.9 %; Eosinophils # 0.2 10^3/uL (0.0-0.8); Eosinophils % 3.4 %; Hematocrit 28.9 % (36-47); Lymphocytes # 1.4 10^3/uL (0.8-4.8); Lymphocytes % 24.2 %; Mean Corpuscular HGB Conc 31.5 g/dL (30-55); Mean Corpuscular Hemoglobin 31.2 pg (27-33); Monocytes # 0.7 10^3/uL (0.2-0.9); Monocytes % 11.7 %; Neutrophils # 3.36 10^3/uL (1.8-7.7); Neutrophils % 59.6 %; Nucleated Red Blood Cells % 0 %; Platelet Count 255 10^3/cmm (157-399); Red Blood Count 2.92 10^6/uL (3.85-5.65); Red Cell Distribution Width 13.1 % (12.1-15.1); White Blood Count 5.63 10^3/uL (3.29-11.43)
[2024-02-10 12:58] LABS: Urine Creatinine 17 mg/dL (28-217)
[2024-02-10 12:59] LABS: UPRO/UCREAT Ratio 6.12 mg/mg CR; Urine Protein Random 104 mg/dL
[2024-02-10 13:00] LABS: Albumin Level 3.9 g/dL (3.5-5.2); Anion Gap 15.1 (5-19); Calcium 9.6 mg/dL (8.5-10.5); Carbon Dioxide 31 mmol/L (22-29); Chloride 98 mmol/L (98-107); Ferritin 70 ng/mL (15-150); Glomerular Filtration Rate 15.9 mL/min (90-130); Glucose 104 mg/dL (65-115); Iron 58 ug/dL (37-145); Percent Saturation 15.9 % (20-50); Phosphorus 4.6 mg/dL (2.5-4.5); Potassium 4.1 mmol/L (3.5-5.1); Sodium 140 mmol/L (136-145); Total Iron Binding Capacity 363 mcg/dl; Unsaturated Iron Binding 305 ug/dL (112-347)
[2024-02-10 13:01] LABS: Calcium 9.5 mg/dL (8.5-10.5)
[2024-02-10 13:07] LABS: Parathyroid Hormone 55.2 pg/mL (15-65)
[2024-02-10 13:23] LABS: Blood Urea Nitrogen 89 mg/dL (8-23)
[2024-02-11 12:50] LABS: PROTEIN, TOTAL 6.5 g/dL (6.1-8.1)
[2024-02-11 16:13] LABS: ALBUMIN 3.5 g/dL (3.8-4.8); ALPHA 1 GLOBULIN 0.3 g/dL (0.2-0.3); ALPHA 2 GLOBULIN 0.8 g/dL (0.5-0.9); BETA 1 GLOBULIN 0.5 g/dL (0.4-0.6); BETA 2 GLOBULIN 0.5 g/dL (0.2-0.5); GAMMA GLOBULIN 0.9 g/dL (0.8-1.7)
[2024-02-14 11:09] LABS: KAPPA LIGHT CHAIN, FREE, SERUM 102.4 mg/L (3.3-19.4); KAPPA/LAMBDA LIGHT CHAINS FREE 2.17 (0.26-1.65); LAMBDA LIGHT CHAIN, FREE, SERU 47.1 mg/L (5.7-26.3)
== END 2024-02-10 11:57 | disposition home or self-care (01) ==
LOC: LAB 11:57
PROVIDERS: PCP Family Medicine; Visit Provider Internal Medicine
DX: N18.4 Chronic kidney disease, stage 4 (severe) (principal); D64.9 Anemia, unspecified
CPT/HCPCS: 36415; 80069; 82310; 82570; 82728; 83540; 83550; 83883; 83970; 84155; 84156; 84165; 85025

== ENCOUNTER 2024-02-16 13:48 | Oncology outpatient (recurring) (ONCR) | payer OTHER, SELFPAY ==
[2024-02-16 14:51] LABS: Complement C3 130 mg/dL (90-180)
[2024-02-16 15:10] LABS: Hepatitis A Antibody IgM Non-Reactive (Nonreactive); Hepatitis B Core IgM Non-Reactive (Nonreactive); Hepatitis B Surface Antigen Non-Reactive (Nonreactive); Hepatitis C Virus Antibody Non-Reactive (Nonreactive)
[2024-02-17 14:18] LABS: Anti-Nuclear Antibody Screen NEGATIVE (NEGATIVE)
[2024-02-18 08:48] LABS: Erythropoietin 10.7 mIU/mL (2.6-18.5)
[2024-02-19 11:44] LABS: ANCA Screen NEGATIVE (NEGATIVE)
== END 2024-03-04 23:59 | disposition home or self-care (01) ==
PROVIDERS: Internal Medicine Medical Oncology; Registered Nurse; PCP Family Medicine; Visit Provider Internal Medicine
DX: D64.9 Anemia, unspecified (principal); N18.32 Chronic kidney disease, stage 3b
CPT/HCPCS: 36415; 80074; 82668; 86036; 86038; 86160

== ENCOUNTER 2024-03-15 11:43 | Oncology outpatient (recurring) (ONCR) | payer OTHER, SELFPAY ==
[2024-03-15 12:38] LABS: Basophils % 0.8 %; Eosinophils # 0.2 10^3/uL (0.0-0.8); Eosinophils % 3.8 %; Hematocrit 29.4 % (36-47); Lymphocytes # 1.2 10^3/uL (0.8-4.8); Lymphocytes % 22.1 %; Mean Corpuscular Hemoglobin 30.9 pg (27-33); Mean Corpuscular Volume 96.7 fl (85-98); Mean Platelet Volume 9.5 fL (7.4-10.4); Monocytes # 0.5 10^3/uL (0.2-0.9); Monocytes % 10.4 %; Neutrophils # 3.27 10^3/uL (1.8-7.7); Neutrophils % 62.7 %; Nucleated Red Blood Cells % 0 %; Platelet Count 263 10^3/cmm (157-399); Red Blood Count 3.04 10^6/uL (3.85-5.65); Red Cell Distribution Width 12.9 % (12.1-15.1); White Blood Count 5.21 10^3/uL (3.29-11.43)
[2024-03-15 12:56] LABS: Alanine Aminotransferase 20 U/L (0-33); Albumin Level 3.8 g/dL (3.5-5.2); Alkaline Phosphatase 261 U/L (35-105); Aspartate Amino Transferase 18 U/L (0-32); Blood Urea Nitrogen 76 mg/dL (8-23); Calcium 9.2 mg/dL (8.5-10.5); Carbon Dioxide 27 mmol/L (22-29); Chloride 100 mmol/L (98-107); Glomerular Filtration Rate 17.9 mL/min (90-130); Glucose 107 mg/dL (65-115); Osmolality Calculated 313 mOsm/kg (285-295); Sodium 140 mmol/L (136-145); Total Bilirubin 0.4 mg/dL (0.15-1.2); Total Protein 6.8 g/dL (6.6-8.7)
[2024-03-15 12:58] LABS: Creatinine Urine, Random 42 mg/dL (28-217)
[2024-03-15 13:13] LABS: Microalbum Creatinine Ratio Ur 5667 mg/dL (0-20); Microalbumin Random Urine 238 ug/dL (0-20)
[2024-03-15 13:23] LABS: Albumin Level 3.8 g/dL (3.5-5.2); Blood Urea Nitrogen 76 mg/dL (8-23); Calcium 8.8 mg/dL (8.5-10.5); Carbon Dioxide 27 mmol/L (22-29); Chloride 100 mmol/L (98-107); Creatinine Clr Calc Pharmacy 22.8231; Glomerular Filtration Rate 18.7 mL/min (90-130); Glucose 116 mg/dL (65-115); Sodium 139 mmol/L (136-145)
[2024-03-15 14:12] LABS: 25 Hydroxy Vitamin D 28 ng/mL (30-100)
[2024-03-18 08:53] LABS: Methylmalonic Acid 344 nmol/L (69-390)
== END 2024-04-03 23:59 | disposition home or self-care (01) ==
PROVIDERS: Registered Nurse; PCP Family Medicine; Visit Provider Internal Medicine
DX: D64.9 Anemia, unspecified (principal); N18.32 Chronic kidney disease, stage 3b; D50.8 Other iron deficiency anemias
CPT/HCPCS: 36415; 80053; 80069; 82044; 82306; 83921; 85025

== ENCOUNTER 2024-04-21 10:00 | Oncology outpatient (recurring) (ONCR) | payer OTHER, SELFPAY ==
[2024-04-14 09:27] VITALS: BP 192/92; PULSE 85; RESP 16; TEMP 36.6; O2SAT 95
[2024-04-14 09:30] VITALS: BP 189/79
[2024-04-14] MEDS: ferric carboxy (PYXIS) 750 MG in sodium chloride 0.9% (100 ml) 100 ML 345 MG IV (09:42)
[2024-04-14 10:13] VITALS: BP 187/92; PULSE 84; RESP 16; TEMP 36.5; O2SAT 94
[2024-04-21] MEDS: ferric carboxy (PYXIS) 750 MG in sodium chloride 0.9% (100 ml) 100 ML 345 MG IV (10:32)
== END 2024-05-04 23:59 | disposition home or self-care (01) ==
PROVIDERS: PCP Family Medicine; Visit Provider Internal Medicine
DX: D64.9 Anemia, unspecified (principal); D50.8 Other iron deficiency anemias; N18.32 Chronic kidney disease, stage 3b
CPT/HCPCS: 96365; J1439

== ENCOUNTER 2024-05-12 08:22 | Oncology outpatient (recurring) (ONCR) | payer OTHER, SELFPAY ==
[2024-05-12 08:47] LABS: Basophils # 0.1 10^3/uL (0.0-0.1); Basophils % 1.1 %; Eosinophils # 0.2 10^3/uL (0.0-0.8); Eosinophils % 4.1 %; Hematocrit 35.3 % (36-47); Lymphocytes # 0.9 10^3/uL (0.8-4.8); Lymphocytes % 19.5 %; Mean Corpuscular HGB Conc 31.7 g/dL (30-55); Mean Corpuscular Hemoglobin 31.2 pg (27-33); Mean Corpuscular Volume 98.3 fl (85-98); Mean Platelet Volume 9.7 fL (7.4-10.4); Monocytes # 0.5 10^3/uL (0.2-0.9); Monocytes % 11.4 %; Neutrophils # 2.79 10^3/uL (1.8-7.7); Neutrophils % 63.4 %; Nucleated Red Blood Cells % 0 %; Platelet Count 204 10^3/cmm (157-399); Red Blood Count 3.59 10^6/uL (3.85-5.65); Red Cell Distribution Width 14.9 % (12.1-15.1)
[2024-05-12 09:05] LABS: Alanine Aminotransferase 22 U/L (0-33); Albumin Level 3.7 g/dL (3.5-5.2); Alkaline Phosphatase 328 U/L (35-105); Anion Gap 15.9 (5-19); Aspartate Amino Transferase 14 U/L (0-32); Blood Urea Nitrogen 67 mg/dL (8-23); Calcium 8.7 mg/dL (8.5-10.5); Carbon Dioxide 27 mmol/L (22-29); Chloride 102 mmol/L (98-107); Creatinine Clr Calc Pharmacy 19.4694; Globulin 2.1 g/dL (1.3-4.6); Glomerular Filtration Rate 15.3 mL/min (90-130); Glucose 119 mg/dL (65-115); Iron 55 ug/dL (37-145); Osmolality Calculated 313 mOsm/kg (285-295); Percent Saturation 19.4 % (20-50); Potassium 3.9 mmol/L (3.5-5.1); Sodium 141 mmol/L (136-145); Total Bilirubin 0.4 mg/dL (0.15-1.2); Total Iron Binding Capacity 283 mcg/dl; Total Protein 5.8 g/dL (6.6-8.7); Unsaturated Iron Binding 228 ug/dL (112-347)
[2024-05-12 11:10] LABS: Estmated Average Glucose 120; Hemoglobin A1C 5.8 % (4.0-6.0)
== END 2024-06-03 23:59 | disposition home or self-care (01) ==
PROVIDERS: Nurse Practitioner Family; PCP Family Medicine; Visit Provider Internal Medicine Hematology & Oncology
DX: D64.9 Anemia, unspecified (principal); N18.32 Chronic kidney disease, stage 3b; D50.9 Iron deficiency anemia, unspecified; Z79.899 Other long term (current) drug therapy
CPT/HCPCS: 36415; 80053; 83036; 83540; 83550; 85025

== ENCOUNTER 2024-05-25 12:12 | Outpatient (CLI) | payer OTHER, SELFPAY ==
[2024-05-25 12:48] LABS: Basophils % 0.9 %; Eosinophils # 0.2 10^3/uL (0.0-0.8); Eosinophils % 4.2 %; Hematocrit 36.4 % (36-47); Lymphocytes # 1.2 10^3/uL (0.8-4.8); Lymphocytes % 26.7 %; Mean Corpuscular HGB Conc 31.9 g/dL (30-55); Mean Corpuscular Hemoglobin 31.1 pg (27-33); Mean Corpuscular Volume 97.6 fl (85-98); Mean Platelet Volume 9.7 fL (7.4-10.4); Monocytes # 0.5 10^3/uL (0.2-0.9); Monocytes % 10.8 %; Neutrophils % 57.2 %; Nucleated Red Blood Cells % 0 %; Platelet Count 234 10^3/cmm (157-399); Red Blood Count 3.73 10^6/uL (3.85-5.65); Red Cell Distribution Width 14.4 % (12.1-15.1); White Blood Count 4.54 10^3/uL (3.29-11.43)
[2024-05-25 13:08] LABS: Albumin Level 3.7 g/dL (3.5-5.2); Anion Gap 14.7 (5-19); Blood Urea Nitrogen 74 mg/dL (8-23); Carbon Dioxide 26 mmol/L (22-29); Chloride 103 mmol/L (98-107); Glomerular Filtration Rate 15.3 mL/min (90-130); Glucose 107 mg/dL (65-115); Phosphorus 4.6 mg/dL (2.5-4.5); Potassium 3.7 mmol/L (3.5-5.1); Sodium 140 mmol/L (136-145)
[2024-05-25 13:15] LABS: Urine Creatinine 56 mg/dL (28-217)
[2024-05-25 13:31] LABS: UPRO/UCREAT Ratio 10.13 mg/mg CR; Urine Protein Random 567 mg/dL
[2024-05-25 13:37] LABS: Iron 61 ug/dL (37-145); Percent Saturation 21.7 % (20-50); Total Iron Binding Capacity 280 mcg/dl; Unsaturated Iron Binding 219 ug/dL (112-347)
[2024-05-25 13:40] LABS: Calcium 9.3 mg/dL (8.5-10.5)
[2024-05-25 13:46] LABS: Parathyroid Hormone 75.6 pg/mL (15-65)
[2024-05-26 08:44] LABS: PROTEIN, TOTAL 5.9 g/dL (6.1-8.1)
[2024-05-26 12:44] LABS: ALBUMIN 3.3 g/dL (3.8-4.8); ALPHA 1 GLOBULIN 0.3 g/dL (0.2-0.3); ALPHA 2 GLOBULIN 0.7 g/dL (0.5-0.9); BETA 1 GLOBULIN 0.4 g/dL (0.4-0.6); BETA 2 GLOBULIN 0.4 g/dL (0.2-0.5); GAMMA GLOBULIN 0.8 g/dL (0.8-1.7)
[2024-05-26 15:45] LABS: KAPPA LIGHT CHAIN, FREE, SERUM 74.1 mg/L (3.3-19.4); KAPPA/LAMBDA LIGHT CHAINS FREE 1.56 (0.26-1.65); LAMBDA LIGHT CHAIN, FREE, SERU 47.4 mg/L (5.7-26.3)
== END 2024-05-25 12:13 | disposition home or self-care (01) ==
LOC: LAB 12:13
PROVIDERS: PCP Family Medicine; Visit Provider Internal Medicine
DX: D64.9 Anemia, unspecified (principal)
CPT/HCPCS: 80069; 82310; 82570; 83540; 83550; 83883; 83970; 84155; 84156; 84165; 85025

== ENCOUNTER → 2024-07-04 08:09 | Outpatient (BNVA) | payer OTHER, SELFPAY | PROVIDERS: PCP Family Medicine; Visit Provider Nurse Practitioner Family | DX: N17.9 Acute kidney failure, unspecified (principal); D50.8 Other iron deficiency anemias | CPT/HCPCS: 80069; 82043; 82310; 83970; 85025 ==

== ENCOUNTER → 2024-07-27 15:25 | Outpatient (BNVA) | payer OTHER, SELFPAY | PROVIDERS: PCP Family Medicine; Visit Provider Nurse Practitioner Family | DX: M25.562 Pain in left knee (principal) | CPT/HCPCS: 73562 ==

== ENCOUNTER 2024-07-28 14:48 | Outpatient (CLI) | payer OTHER, SELFPAY ==
--- NOTE | 2024-07-28 15:30 | USCV_ITS ---
Nikki Mercado Age: 63 Gender: F : 1960 Exam Date: 07/28/2024 15:06 Ordering Phys: JACINTA Bradford APRN Technologist: JENNIFER Exam Location: [facility] [place] Indication: Left leg swelling HISTORY: Left Leg swelling PROCEDURES: Venous duplex imaging was performed in only the left lower extremity. The following venous structures were evaluated: common femoral vein, profunda vein, proximal portion of the greater saphenous vein, superficial femoral vein, and the popliteal vein. In addition, the posterior tibial and peroneal trunk were evaluated. FINDINGS: Normal 2-D Doppler and augmentation and compressibility throughout the lower extremity venous structures. Additional imaging through the proximal calf veins also reveals no thrombus. Limited evaluation of the greater saphenous vein is patent with no thrombus. There is subcutaneous left lower extremity edema noted. CONCLUSIONS No DVT left lower extremity. Dr. Starr Rhodes DO (Electronically Signed) Final Date: 28 July 2024 16:07 S
== END 2024-07-28 14:49 | disposition home or self-care (01) ==
LOC: RAD 14:48
PROVIDERS: PCP Family Medicine; Visit Provider Nurse Practitioner Family
DX: R60.0 Localized edema (principal); S80.02XA Contusion of left knee, initial encounter; X58.XXXA Exposure to other specified factors, initial encounter
CPT/HCPCS: 93971

== ENCOUNTER → 2024-08-01 08:55 | Outpatient (BNVA) | payer OTHER, SELFPAY | PROVIDERS: PCP Family Medicine; Visit Provider Nurse Practitioner Family | DX: N18.4 Chronic kidney disease, stage 4 (severe) (principal); N17.9 Acute kidney failure, unspecified | CPT/HCPCS: 82570; 84156 ==

== ENCOUNTER 2024-08-23 07:25 | Inpatient (IN) | payer OTHER, SELFPAY ==
[2024-08-23] VITALS (81 sets, daily range): BP systolic 168–194; BP diastolic 78–121; PULSE 77–92; RESP 17–30; TEMP 36.3–36.7; O2SAT 77–95; BMI 32.9; BMI 34.9
--- NOTE | 2024-08-23 07:33 | XR_ITS ---
WS: [id number] PORTABLE CHEST HISTORY: dyspnea/cough COMPARISON: 07/30/2023 Lung volumes are slightly decreased. There is mild flattening of the diaphragms. Extensive bilateral fluffy opacifications throughout both lungs, greatest centrally. These have progressed since the prior study. Small bilateral pleural effusions. Cardiac size: Mildly enlarged cardiac silhouette. Mediastinum/Aorta: Normal mediastinum. No osseous abnormality seen. XR/XR chest 1V portable [id number] IMPRESSION: 1. Bilateral fluffy opacifications throughout both lungs, greatest centrally. Differential includes pulmonary edema, pneumonia and pulmonary nodules. Recomme nd follow-up chest radiograph after treatment for pulmonary edema. 2. Small bilateral pleural effusions.
--- NOTE | 2024-08-23 07:38 | PC.NURSE ---
PATIENT PLACED ON 2 L NC DUE TO RA O2 SAT. BROUGHT UP TO 94%.
--- NOTE | 2024-08-23 07:40 | ECG_ITS ---
[facility] [employer] Test Date: 2024-08-23 Pat Name: Nikki Mercado Department: Room: Gender: Female Pi/Senior Research Associate: : 1960 Requested By: Jesus Strickland Order Number: [id number] Karlo MD: CALE SOTELO Measurements Intervals [place] Rate: 87 P: 20 DE: 165 QRS: -10 QRSD: 113 T: 19 QT: 411 QTc: 495 Interpretive Statements SINUS RHYTHM POSSIBLE LEFT ATRIAL ENLARGEMENT [-0.1mV P-WAVE IN V1/V2] INCOMPLETE RIGHT BUNDLE BRANCH BLOCK [90+ ms QRS DURATION, TERMINAL R IN V1/V2, 40+ ms S IN I/aVL/V4/V5/V6] MODERATE ST DEPRESSION [0.05+ mV ST DEPRESSION] INTERPRETATION BASED ON A DEFAULT AGE OF 40 YEARS Compared to ECG 07/30/2023 15:26:02 Incomplete right bundle-branch block now present ST (T wave) deviation now present Intraventricular conduction delay no longer present Electronically Signed On 08-29-2024 23:55:29 INDIAN NANNY by CALE SOTELO [email or web address] [id number]
--- NOTE | 2024-08-23 07:41 | ED_ITS ---
HPI - SOB/Dyspnea 2 General: Chief Complaint: Shortness of Breath/Dyspnea Stated Complaint: chest conjestion/SOB Time Seen by Provider: 08/23/24 07:31 History of Present Illness: HPI Narrative: 63-year-old female who [facility] complaining of shortness of breath progressively worsening for the last 6 days a lot of chest congestion nonproductive cough. She not had any chest discomfort or pain however. She has no known history of coronary artery disease she does have a history of congestive heart failure and chronic kidney disease. She is a type II diabetic. She is not normally on oxygen at home. On arrival here her oxygen saturation is 76% on room air with 3 L she improves to the low 90s. She has labored tachypneic breathing with audible rhonchi on expiration. Associated symptoms: Reports chest congestion; Deny abdominal pain, chest pain or fever(s) Related Data Home Medications ?Medication ?Instructions ?Recorded ?Confirmed dexamethasone 0.7 mg intravitreal 0.7 mg intravitreal Q60D 12/09/23 08/23/24 implant (Ozurdex) faricimab-svoa 6 mg/0.05 mL 6 mg intravitreal Q6M 12/2608/23/24 intravitreal solution (Vabysmo) carvedilol 6.25 mg tablet 6.25 mg PO DAILY 07/27/24 ergocalciferol (vitamin D2) 1,250 1,250 mcg PO Q7D 08/23/24 mcg (50,000 unit) capsule Previous Rx's ?Medication ?Instructions ?Recorded blood-glucose meter #1 ea 07/22/22 potassium chloride 20 mEq 20 meq PO DAILY #90 tabs tablet,extended release bumetanide 2 mg tablet 2 mg PO DAILY #90 tabs 09/07 metolazone 2.5 mg tablet 2.5 mg PO DIRECTED #90 ta bs 09/08/23 Allergies Allergy/AdvReac Type Severity Reaction Status Date / Time sweet potato Allergy ADR-Itching Verified 08/01/24 08:56 Review of Systems 2 Const: Denies: fever(s) or chills Card: Denies: chest pain Resp: Reports: dyspnea, non-productive cough, wheezing and chest congestion GI: Denies: abdominal pain : Denies: dysuria, urinary frequency or urinary urgency Musc: Denies: neck pain or back pain Skin/Breast: Denies: rash PFSH ED 2 PFSH: Medical History Newly diagnosed diabetes Contusion of left knee Lower leg edema Chronic kidney disease Hypothyroidism Congestive heart failure of unknown etiology Type 2 diabetes mellitus Hypertension Anemia Venous insufficiency (chronic) (peripheral) Cellulitis and abscess of buttock Surgical History History of esophagogastroduodenoscopy (09/29/23) History of colonoscopy (09/29/23) S/P cholecystectomy 1990s in [place], [place] Family History Father CAD (coronary artery disease) Cancer lung cancer Brother Diabetes Denies family history of Ovarian cyst Hyperlipidemia Chronic kidney disease (CKD) Anesthesia complication Family history of thyroid problem Bleeding disorder Hypertension Stroke Social History Smoking and tobacco/nicotine status: never used tobacco/nicotine Alcohol intake: never Substance/Drug Use: never Physical Exam 2 Const: GENERAL APPEARANCE: cooperative ORIENTATION/CONSCIOUSNESS: Yes awake, Yes oriented to person, Yes oriented to place and Yes oriented to time HENMT: COMMON NORMALS: normocephalic, atraumatic and hearing grossly normal bilaterally HEAD & SCALP: normocephalic and atraumatic Resp: EFFORT & INSPECTION: No able to speak in complete sentences, Yes tachypneic, Yes respiratory distress and Yes audible wheezes AUSCULTATION: r honchi and wheezes Cardio: COMMON NORMALS: regular rate, regular rhythm and No murmurs present (Cardio) RATE: regular rate RHYTHM: regular rhythm GI: COMMON NORMALS: Soft to palpation and No hepatosplenomegaly present A USCULTATION: Yes normoactive bowel sounds PALPATION: Yes Soft to palpation, No Tenderness to palpation present (GI), No Guarding due to palpation present (GI) and Yes No hepatosplenomegaly present Extremity: COMMON NORMALS: normal to inspection, capillary refill normal and no calf tenderness OTHER: 2+ edema lower extremities to the distal third of the lower legs Neuro: SENSORIUM/ORIENTATION: Yes oriented to person, Yes oriented to place and Yes oriented to time Skin: COMMON NORMALS: no rashes or lesions noted GENERAL SKIN EXAM: no rashes or lesions noted Course 2 Vital Signs: Vital signs: Vital Signs Temperature 98.1 F 08/23/24 07:34 Pulse Rate 87 08/23/24 11:45 Respiratory Rate 21 H 08/23/24 11:45 Blood Pressure 190/94 08/23/24 09:45 Pulse Oximetry 90 08/23/24 11:45 Oxygen Delivery Me thod Nasal Cannula 08/23/24 07:56 Oxygen Flow Rate 3 08/23/24 07:56 MDM - SOB/Dyspnea Medical Decision Making Patient acute respiratory distress on arrival. She is influenza A positive she is in decompensated heart failure some mild acute kidney injury as well. Goldstein has been placed her oxygenation status has improved we have given her Lasix. Will contact nephrology for consultation to discuss with hospitalist orders written. Her troponin is elevated. Echocardiograms been ordered she will be able to get a CTA of the chest or second troponin trended down. Discussed with hospitalist will continue anticoagulation for now until further evaluation completed. Medical Records I reviewed the patient's medical records. Lab Data I reviewed the patient's lab results. 08/23/24 07:56 08/23/24 07:56 Labs/Radiology: Radiology Impressions Chest X-Ray 08/23/24 07:33 IMPRESSION: 1. Bilateral fluffy opacifications throughout both lungs, greatest centrally. Differential includes pulmonary edema, pneumonia and pulmonary nodules. Recommend follow-up chest radiograph after treatment for pulmonary edema. 2. Small bilateral pleural effusions. Laboratory Results WBC 2.56 10^3/uL (3.29-11.43) L 08/23/24 07:56 RBC 3.20 10^6/uL (3.85-5.65) L 08/23/24 07:56 Hgb 10.00 g/dL (11.27-16.99) L 08/23/24 07:56 Hct 30.5 % (36-47) L 08/23/24 07:56 MCV 95.3 fl (85-98) 08/23/24 07:56 MCH 31.3 pg (27-33) 08/23/24 07:56 MCHC 32.8 g/dL (30-55) 08/23/24 07:56 RDW 14.1 % (12.1-15.1) 08/23/24 07:56 Plt Count 133 10^3/cmm (157-399) L 08/23/24 07:56 MPV 10.4 fL (7.4-10.4) 08/23/24 07:56 Neut % (Auto) 83.1 % 08/23/24 07:56 Lymph % (Auto) 10.2 % 08/23/24 07:56 Saline % (Auto) 5.9 % 08/23/24 07:56 Eos % (Auto) 0.0 % 08/23/24 07:56 Baso % (Auto) 0.0 % 08/23/24 07:56 Neut # (Auto) 2.13 10^3/uL (1.8-7.7) 08/23/24 07:56 Lymph # (Auto) 0.3 10^3/uL (0.8-4.8) L 08/23/24 07:56 Saline # (Auto) 0.2 10^3/uL (0.2-0.9) 08/23/24 07:56 Eos # (Auto) 0.0 10^3/uL (0.0-0.8) 08/23/24 07:56 Baso # (Auto) 0.0 10^3/uL (0.0-0.1) 08/23/24 07:56 Nucleated RBC % (auto) 0 % 08/23/24 07:56 Nucleated RBCs # 0.0 /100WBC 08/23/24 07:56 Specimen Type Arterial 08/23/24 07:55 Sample Site Radial, right 08/23/24 07:55 ABG pH 7.32 (7.35-7.45) L 08/23/24 07:55 ABG pCO2 31.1 mmHg (35-45) L 08/23/24 07:55 ABG pO2 60.9 mmHg (80.0-100.0) L 08/23/24 07:55 ABG HCO3 16.1 mmol/L (22-26) L 08/23/24 07:55 ABG O2 Saturation 90.9 08/23/24 07:55 ABG Base Excess -8.9 mmol/L (-2.0-2.0) L 08/23/24 07:55 Sachin Test Pos 08/23/24 07:55 A-a O2 Gradient 6.8 mmHg (5-10) 08/23/24 07:55 Hematocrit 31.4 % (37-47) L 08/23/24 07:55 Hgb O2 Saturation 88.9 % (95-100) L 08/23/24 07:55 Carboxyhemoglobin 1.1 %THgb (0.4-20.1) 08/23/24 07:55 Methemoglobin 1.1 % (0.4-1.5) 08/23/24 07:55 Total Hemoglobin 10.2 g/dL (12-16) L 08/23/24 07:55 Sodium 135.0 mmol/L (131-143) 08/23/24 07:55 Potassium 3.4 mmol/L (3.5-5.0) L 08/23/24 07:55 Glucose 128.0 mg/dL (70-115) H 08/23/24 07:55 Ionized Calcium 1.1 mmol/L (1.1-1.4) 08/23/24 07:55 O2 Delivery Device Nc 08/23/24 07:55 O2 Liters/Min 3.0 % 08/23/24 07:55 Sourcing Engineer ID Anonymous 08/23/24 07:55 Sodium 134 mmol/L (136-145) L 08/23/24 07:56 Potassium 3.6 mmol/L (3.5-5.1) 08/23/24 07:56 Chloride 95 mmol/L (98-107) L 08/23/24 07:56 Carbon Dioxide 17 mmol/L (22-29) L 08/23/24 07:56 Anion Gap 25.6 (5-19) H 08/23/24 07:56 BUN 101 mg/dL (8-23) H* 08/23/24 07:56 Creatinine 5.2 mg/dL (0.5-0.9) H 08/23/24 07:56 GFR Calculation 8.4 mL/min (90-130) L 08/23/24 07:56 Glucose 132 mg/dL (65-115) H 08/23/24 07:56 Calculated Osmolality 311 mOsm/kg (285-295) H 08/23/24 07:56 Lactic Acid 1.2 mmol/L (0.5-2.2) 08/23/24 07:56 Calcium 8.1 mg/dL (8.5-10.5) L 08/23/24 07:56 Phosphorus 5.8 mg/dL (2.5-4.5) H 08/23/24 07:56 Magnesium 2.5 mg/dL (1.7-2.3) H 08/23/24 07:56 Total Bilirubin 0.4 mg/dL (0.15-1.2) 08/23/24 07:56 AST 44 U/L (0-32) H 08/23/24 07:56 ALT 36 U/L (0-33) H 08/23/24 07:56 Alkaline Phosphatase 761 U/L (35-105) H 08/23/24 07:56 Troponin T Baseline 174 ng/L (0-10) H* 08/23/24 07:56 Troponin T 120 Minute 164.3 ng/L (0-10) H 08/23/24 09:52 Delta Troponin T -9.7 ABS# (0-10) L 08/23/24 09:52 NT-Pro-B Natriuret Pep > 98610 pg/mL (0-125) H 08/23/24 07:56 Total Protein 6.1 g/dL (6.6-8.7) L 08/23/24 07:56 Albumin 3.4 g/dL (3.5-5.2) L 08/23/24 07:56 Globulin 2.7 g/dL (1.3-4.6) 08/23/24 07:56 Procalcitonin 0.44 ng/mL (0-0.5) 08/23/24 07:56 Urine Color Yellow (Yellow) 08/23/24 09:33 Urine Appearance Cloudy (CLEAR) A 08/23/24 09:33 Urine pH 5.0 (5-7) 08/23/24 09:33 Ur Specific [place] 1.012 (1.005-1.030) 08/23/24 09:33 Urine Protein 3+ (Negative) A 08/23/24 09:33 Urine Glucose (UA) Trace (Normal) H 08/23/24 09:33 Urine Ketones Negative (Negative) 08/23/24 09:33 Urine Blood 2+ (Negative) A 08/23/24 09:33 Urine Nitrate Negative (Negative) 08/23/24 09:33 Urine Bilirubin Negative (Negative) 08/23/24 09:33 Urine Urobilinogen 0.2 mg/dL (Negative) 08/23/24 09:33 Ur Leukocyte Esterase Negative (Negative) 08/23/24 09:33 Urine RBC 5-10 /hpf (0-2) H 08/23/24 09:33 Urine WBC 0-4 /hpf (0-5) H 08/23/24 09:33 Ur Squamous Epith Cells None /hpf (0-5) 08/23/24 09:33 Amorphous Sediment Trace /hpf 08/23/24 09:33 Urine Bacteria 1+ /hpf (NONE) H 08/23/24 09:33 Hyaline Casts 0-4 /lpf H 08/23/24 09:33 Other Casts Broad granular 0-4 /lpf 08/23/24 09:33 Urine Mucus Trace /hpf 08/23/24 09:33 Influenza A (PCR) Positive (Negative) 08/23/24 08:13 Influenza Type B (PCR) Negative (Negative) 08/23/24 08:13 RSV (PCR) Negative (Negative) 08/23/24 08:13 SARS-CoV-2 (PCR) Negative (Negative) 08/23/24 08:13 All radiology interpretation(s) finalized by discharge Discharge Plan Discharge Patient Disposition: Admitted As Inpatient Clinical Impression: Acute respiratory failure, Acute renal failure, Anemia, Hypertension, Congestive heart failure (CHF), Influenza A Condition: Stable Prescriptions: No Action potassium chloride 20 mEq tablet extended release 20 meq PO DAILY Qty: 90 3RF bumetanide 2 mg tablet 2 mg PO DAILY Qty: 90 3RF metolazone 2.5 mg tablet 2.5 mg PO DIRECTED Qty: 90 0RF Rx Instructions: Take one tablet every other day Ozurdex 0.7 mg implant 0.7 mg intravitreal Q60D Vabysmo 6 mg/0.05 mL solution 6 mg intravitreal Q6M carvedilol 6.25 mg tablet 6.25 mg PO DAILY ergocalciferol (vitamin D2) 1,250 mcg (50,000 unit) capsule 1,250 mcg PO Q7D (DME) blood-glucose meter Kit See Rx Instructions .Route Qty: 1 0RF Rx Instructions: use to check blood sugar daily Referrals: Jacoby Spring MD [Primary Care Provider] - Print Language: Taiwanese Coding Level of Care Code 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
[2024-08-23 08:07] LABS: ABG PCO2 31.1 mmHg (35-45); ABG PH Result 7.32 (7.35-7.45); Alveolar-Arterial Oxygen Gradi 6.8 mmHg (5-10); Arterial Blood Gas Hematocrit 31.4 % (37-47); Base Excess ABG -8.9 mmol/L (-2.0-2.0); Blood Gas Allen Test Pos; Blood Gas Operator Identificat Anonymous; Blood Gas Sample Site Radial, right; Blood Gas Sample Type Arterial; Carboxyhemoglobin 1.1 %THgb (0.4-20.1); HCO3 ABG 16.1 mmol/L (22-26); HGB O2 Sat 88.9 % (95-100); Ionized Calcium Level - ABG 1.1 mmol/L (1.1-1.4); Methemoglobin 1.1 % (0.4-1.5); Oxygen Device NC; Oxygen Saturation ABG 90.9; PO2 ABG 60.9 mmHg (80.0-100.0); Potassium Level - ABG 3.4 mmol/L (3.5-5.0); Total Hemoglobin 10.2 g/dL (12-16)
[2024-08-23 08:09] LABS: Hematocrit 30.5 % (36-47); Lymphocytes # 0.3 10^3/uL (0.8-4.8); Lymphocytes % 10.2 %; Mean Corpuscular HGB Conc 32.8 g/dL (30-55); Mean Corpuscular Hemoglobin 31.3 pg (27-33); Mean Corpuscular Volume 95.3 fl (85-98); Mean Platelet Volume 10.4 fL (7.4-10.4); Monocytes # 0.2 10^3/uL (0.2-0.9); Monocytes % 5.9 %; Neutrophils # 2.13 10^3/uL (1.8-7.7); Neutrophils % 83.1 %; Nucleated Red Blood Cells % 0 %; Platelet Count 133 10^3/cmm (157-399); Red Cell Distribution Width 14.1 % (12.1-15.1); White Blood Count 2.56 10^3/uL (3.29-11.43)
[2024-08-23] MEDS: ipratropium-albuterol 3 mL Neb INHALATION (08:10)
[2024-08-23] MEDS: FUROsemide 10 mg/mL SDV 10mL 60 MG IVP (08:16)
[2024-08-23] MEDS: methylPREDNISolone sod succ 125 mg/2 mL INJ IVP (08:16)
[2024-08-23 08:48] LABS: Lactic Sepsis W/Reflex 1.2 mmol/L (0.5-2.2)
[2024-08-23 08:56] LABS: Procalcitonin 0.44 ng/mL (0-0.5)
[2024-08-23 08:58] LABS: Troponin(5th) Baseline 174 ng/L (0-10)
[2024-08-23 09:09] LABS: Globulin 2.7 g/dL (1.3-4.6); Potassium 3.6 mmol/L (3.5-5.1); Total Bilirubin 0.4 mg/dL (0.15-1.2)
[2024-08-23 09:34] LABS: Influenza A POSITIVE (Negative); Influenza B NEGATIVE (Negative); Respiratory Syncytial Virus Ce NEGATIVE (Negative); SARS-CoV-2 PCR NEGATIVE (Negative)
[2024-08-23 09:44] LABS: Bilirubin Urine Negative (Negative); Blood Urine 2+ (Negative); Glucose Urine UA Trace (Normal); Ketones Urine Negative (Negative); Leukocyte Esterase Urine Negative (Negative); Nitrate Urine Negative (Negative); Protein Urine 3+ (Negative); Specific Gravity, Urine 1.012 (1.005-1.030); Urine Appearance Cloudy (CLEAR); Urine Color Yellow (Yellow); Urobilinogen Urine 0.2 mg/dL (Negative)
[2024-08-23 09:51] LABS: UA Manual Slide Review YES; UA Slide Review UA Slide Review Perf
[2024-08-23 09:54] LABS: Add Urine Microscopic? YES; Amorphous Sediment Urine TRACE /hpf; Bacteria Urine 1+ /hpf; Hyaline Casts Urine 0-4 /lpf; Mucus Urine TRACE /hpf; WBC Urine 0-4 /hpf (0-5)
[2024-08-23 09:55] LABS: Add Urine Culture? No; Other Casts Urine BROAD GRANULAR 0-4 /lpf
[2024-08-23] MEDS: heparin 5,000 unit/mL INJ 1 mL IVP (09:59)
[2024-08-23] MEDS: heparin drip 25,000 UNIT/500 ML PREMIX 23 UNIT IV (10:02)
[2024-08-23 10:07] LABS: Creatinine Clr Calc Pharmacy 11.2488
[2024-08-23 10:09] LABS: Alanine Aminotransferase 36 U/L (0-33); Albumin Level 3.4 g/dL (3.5-5.2); Alkaline Phosphatase 761 U/L (35-105); Anion Gap 25.6 (5-19); Aspartate Amino Transferase 44 U/L (0-32); Calcium 8.1 mg/dL (8.5-10.5); Carbon Dioxide 17 mmol/L (22-29); Chloride 95 mmol/L (98-107); Glucose 132 mg/dL (65-115); Osmolality Calculated 311 mOsm/kg (285-295); Sodium 134 mmol/L (136-145); Total Protein 6.1 g/dL (6.6-8.7)
[2024-08-23 10:10] LABS: Glomerular Filtration Rate 8.4 mL/min (90-130); NT Pro B Type Natriuretic Pept > 70000 pg/mL (0-125)
[2024-08-23 10:11] LABS: Blood Urea Nitrogen 101 mg/dL (8-23)
[2024-08-23 10:20] LABS: Troponin 5 2HR 164.3 ng/L (0-10); Troponin 5 2HR Delta -9.7 ABS# (0-10)
--- NOTE | 2024-08-23 10:40 | ECG_ITS ---
[facility] Test Date: 2024-08-23 Pat Name: Nikki Mercado Department: Room: Gender: Female Burn Table Operator: : 1960 Requested By: Jesus Strickland Order Number: [id number] Reading MD: CALE SOTELO Measurements Intervals [place] Rate: 87 P: 19 TN: 159 QRS: -15 QRSD: 118 T: 1 QT: 412 QTc: 498 Interpretive Statements SINUS RHYTHM POSSIBLE LEFT ATRIAL ENLARGEMENT [-0.1mV P-WAVE IN V1/V2] MODERATE INTRAVENTRICULAR CONDUCTION DELAY [110+ ms QRS DURATION] Compared to ECG 08/23/2024 07:40:32 Intraventricular conduction delay now present Incomplete right bundle-branch block no longer present ST (T wave) deviation no longer present Electronically Signed On 08-29-2024 23:55:28 SMALL BUSINESS DIRECTOR by CALE SOTELO [email or web address] [id number]
--- NOTE | 2024-08-23 11:09 | USCV_ITS ---
Nikki Mercado Age: 63 Gender: F : 1960 Exam Date: 08/23/2024 12:05 Ordering Phys: Jesus No DO Technologist: Exam Location: [facility] Indication: chf pedal edema BP: 123 / 75 HR: 87 Rhythm: Sinus Technical Quality: Adequate MEASUREMENTS (Male / Female) Normal Values 2D ECHO LV Diastolic Diameter PLAX 5.3 cm 4.2 - 5.9 / 3.9 - 5.3 cm IVS Diastolic Thickness 1.3 cm 0.6 - 1.0 / 0.6 - 0.9 cm IVS Systolic Thickness 1.5 cm LVPW Diastolic Thickness 1.3 cm 0.6 - 1.0 / 0.6 - 0.9 cm LVPW Systolic Thickness 1.7 cm LVOT Diameter 1.9 cm LV Ejection Fraction 2D Teich 36.1 % LV Ejection Fraction MOD 4C 39.9 % LV Ejection Fraction MOD 2C 5.4 % LV Ejection Fraction 2C AL 15.3 % LA Diameter 3.7 cm RA Systolic Volume 4C AL 81.1 ml RA Systolic Volume 4C MOD 76.0 ml Aorta at Sinotubular Diameter 2.5 cm IVC Diameter 3.0 cm M-MODE LA Ao Ratio MM 1.4 AV Cusp Separation MM 1.9 cm DOPPLER AV Peak Velocity 137.0 cm/s LVOT Peak Velocity 89.0 cm/s AV Area Cont Eq vti 2.7 cm squared AV Area Cont Eq pk 1.9 cm squared MV Peak Velocity 121.0 cm/s TR Peak Velocity 356.0 cm/s TR Peak Gradient 50.7 mmHg TV Peak E Velocity 116.0 cm/s PV Peak Velocity 119.0 cm/s FINDINGS Left Ventricle Mildly increased left ventricular cavity size. Moderately decreased left ventricular systolic function. Left ventricular ejection fraction is estimated at 39 %. Global left ventricular hypokinesis. Right Ventricle The right ventricle is normal in size and function. Right Atrium The right atrium is normal in size. Left Atrium Moderately increased left atrial size. Mitral Valve Thickened mitral valve. No mitral valve stenosis. Mild mitral valve regurgitation. Aortic Valve Moderate aortic valve calcification. No aortic valve stenosis. Trace aortic valve regurgitation. Tricuspid Valve Structurally normal tricuspid valve without significant stenosis or regurgitation. Pulmonary artery systolic pressure is normal. Pulmonic Valve Structurally normal pulmonic valve without significant stenosis. There is no pulmonic regurgitation. Pericardium Normal pericardium without effusion. Aorta Normal ascending aorta dimension. IVC The inferior vena cava appears normal. CONCLUSIONS Mildly increased left ventricular cavity size. Moderately decreased left ventricular systolic function. Left ventricular ejection fraction is estimated at 39 %. Global left ventricular hypokinesis. Moderately increased left atrial size. There is no pericardial effusion. Right atrial pressure is around 5 mm of mercury. Neeraj Hatfield MD (Electronically Signed) Final Date: 24 August 2024 14:02 S
[2024-08-23 11:53] LABS: Magnesium 2.5 mg/dL (1.7-2.3); Phosphorus 5.8 mg/dL (2.5-4.5)
--- NOTE | 2024-08-23 12:38 | PM.HP ---
Providers/Chief Complaint Primary Care Provider: Jacoby Spring MD Chief Complaint: chest congestion/SOB History of Present Illness Pleasant 63-year-old lady with stage V kidney disease, DM 2, HTN, chronic venous insufficiency, chronic urinary and bowel incontinence, other medical problems presented after feeling unwell for about 6 days, with progressive shortness of breath, nonproductive/minimal productive cough lower extremity edema, without any chest pain or pressure. In ER she is found newly requiring 3 L of oxygen, not previously requiring oxygen, initial sat 77%, with tachypnea 24-25, afebrile, with leukopenia, WBC 2.56, without neutropenia, hypoxemia on ABG, 7.3 0.9 on 3 L nasal cannula, with MARKEL on CKD, creatinine elevated at 5.2, BUN elevated 101, anion gap 25.6, bicarb 17, potassium 3.6, sodium 134, chloride 95, phosphorus 5.8, using 2.5, AST 44, LT 36, alk phos 761, baseline troponin 174, 2-hour troponin 164. NT proBNP more than 70,000. She has been producing urine. She has not taken her medications in about 5 days. She has not been able to keep down food or drink or medication due to anything she swallows triggering nausea and vomiting. She has not had any diarrhea. She has not been constipated, has been having usual bowel movements. Review of Systems Const: Reports: fatigue and malaise ENMT: Denies: throat pain Card: Reports: edema and dyspnea on exertion; Denies: chest pain or pre-syncope Resp: Reports: dyspnea and non-productive cough; Denies: productive cough, change in phlegm color or hemoptysis GI: Reports: nausea and vomiting; Denies: abdominal pain, diarrhea, constipation, hematochezia or melena : Denies: flank pain, urinary frequency or hematuria Musc: Denies: back pain, joint swelling or joint redness Skin/Breast: Denies: rash or new lesions Neuro: Denies: headache(s) or confusion Medications/Allergies Home Medications ?Medication ?Instructions ?Recorded ?Confirmed ?Last Taken ?Type blood-glucose meter #1 ea 07/22/22 08/23/24 09/27/23 Rx potassium chloride 20 mEq 20 meq PO DAILY #90 tabs 08/18/23 08/23/24 08/22/24 Rx tablet,extended release bumetanide 2 mg tablet 2 mg PO DAILY #90 tabs 09/08/23 08/23/24 08/22/24 Rx metolazone 2.5 mg tablet 2.5 mg PO DIRECTED #90 tabs 09/08/23 08/23/24 08/21/24 Rx dexamethasone 0.7 mg intravitreal 0.7 mg intravitreal Q60D 12/09/23 08/23/24 Unknown History implant (Ozurdex) faricimab-svoa 6 mg/0.05 mL 6 mg intravitreal Q6M 12/09/23 08/23/24 Unknown History intravitreal solution (Vabysmo) carvedilol 6.25 mg tablet 6.25 mg PO DAILY 07/27/24 08/23/24 08/22/24 History ergocalciferol (vitamin D2) 1,250 1,250 mcg PO Q7D 07/27/24 08/23/24 08/20/24 History mcg (50,000 unit) capsule Allergies Allergy/AdvReac Type Severity Reaction Status Date / Time sweet potato Allergy ADR-Itching Verified 08/01/24 08:56 PFSH Acute PFSH: Medical History Newly diagnosed diabetes Contusion of left knee Lower leg edema Chronic kidney disease Hypothyroidism Congestive heart failure of unknown etiology Type 2 diabetes mellitus Hypertension Anemia Venous insufficiency (chronic) (peripheral) Cellulitis and abscess of buttock Surgical History History of esophagogastroduodenoscopy (09/29/23) History of colonoscopy (09/29/23) S/P cholecystectomy 1990s in [place], [place] Family History Father CAD (coronary artery disease) Cancer lung cancer Brother Diabetes Denies family history of Ovarian cyst Hyperlipidemia Chronic kidney disease (CKD) Anesthesia complication Family history of thyroid problem Bleeding disorder Hypertension Stroke Social History Smoking and tobacco/nicotine status: never used tobacco/nicotine Alcohol intake: never Substance/Drug Use: never Vitals/I&O/Wt Last Vital Signs Temp 98.1 F 08/23/24 07:34 Pulse 87 08/23/24 11:45 Resp 21 H 08/23/24 11:45 BP 190/94 08/23/24 09:45 Pulse Ox 90 08/23/24 11:45 O2 Del Method Nasal Cannula 08/23/24 07:56 O2 Flow Rate 3 08/23/24 07:56 Weight last 48 hrs Weight 81.647 kg Physical Exam Narrative: Accompanied by her and son. Const: COMMON NORMALS: patient oriented x3 and alert GENERAL APPEARANCE: cooperative ORIENTATION/CONSCIOUSNESS: Yes awake HENMT: COMMON NORMALS: oropharynx normal Neck/C-Spine: COMMON NORMALS: no JVD Resp: COMMON NORMALS: normal respiratory effort and clear to auscultation bilaterally OTHER: Coarse breath sounds. Cardio: COMMON NORMALS: no JVD, regular rhythm, S1 normal heart sound present, S2 normal heart sound present and No murmurs present (Cardio) RHYTHM: regular rhythm HEART SOUNDS: S1 normal heart sound present and S2 normal heart sound present GI: COMMON NORMALS: Normal to inspection, nondistended, normoactive bowel sounds present, Soft to palpation and non-tender PALPATION: Yes Soft to palpation Extremity: COMMON NORMALS: no joint enlargement GENERAL: Yes edema (3+ BLLE) Neuro: COMMON NORMALS: patient oriented x3 and moves all extremities SENSORIUM/ORIENTATION: Yes alert Skin: COMMON NORMALS: no rashes or lesions noted GENERAL SKIN EXAM: no rashes or lesions noted Urinary Catheter Management: Goldstein: Cath Placed During This Visit: yes Urinary Catheter Date of Insertion: 08/23/24 Urinary Catheter Time of Insertion: 09:35 Data 08/23/24 07:56 08/23/24 11:58 A&P Assessment and plan (1) HFrEF (heart failure with reduced ejection fraction): Worsening condition over the last 6 days, triggered by influenza, with respiratory failure, new oxygen Sonam, sat 77% on presentation, tachypnea 23-25, requiring 3 L of oxygen, with pulmonary congestive changes/pulm edema on chest x-ray, with 3+ lower extremity edema, with decompensated HFrEF, baseline EF 35% on review of prior echocardiogram. Without chest pain or pressure, but with moderate troponin elevation, baseline 174, 2-hour 164. Discussed with her possibility of FL within the last 2 days, versus demand ischemia secondary to respiratory failure. Complete troponin EKG series. Received 60 mg IV Lasix dose. At home has been taking Bumex daily 2 mg and every other day taking metolazone. Has not been able to take or keep down any of her medications over the last 5 days. In ER also very hypertensive, blood pressure 190/98, hypertension possibly contributing to decompensation of CHF. Possibly left and right heart failure. Requested 5 mg amlodipine, 2.5 mg IV hydralazine for hypertensive urgency. Reassess blood pressure, monitor. Monitor intake and output, monitor for risk of electrolyte deficiency with IV diuresis, risk of worsening renal function with hypovolemia. Continue Lasix 60 mg IV twice daily with metolazone daily. Goldstein catheter has been placed in ER for monitoring of intake and output. Monitor on telemetry with risk of arrhythmia. Assess TTE. Assess lower extremity duplex. (2) Acute renal failure: Acute renal failure, superimposed on stage IV-V chronic kidney disease. BUN up to 101, creatinine one 5.3, with anion gap acidosis, so far producing urine. Monitor intake and output. Appreciate nephrology consultation, as per discussion with her , question may be whether she may be needing dialysis. Nephrology is reassess renal function. On recheck so far with slight improvement after Lasix, BUN down to 99, creatinine down to 4.8. Continue diuresis for the CHF, possible congestive nephropathy. Goldstein catheter placed for accurate AVANI. Repeat chemistry, monitor for risk of arrhythmia with cardiac monitoring. Reassess electrolytes. CK has been checked, mildly elevated 319. Obtain kidney ultrasound. Qualifiers: Acute renal failure type: unspecified Qualified Code(s): N17.9 - Acute kidney failure, unspecified (3) Influenza A: Not a candidate for Tamiflu at this time due to severe renal dysfunction. With poor oral intake, nausea, vomiting, unable to tolerate food drink or her medications over the last 5 days or so. Zofran as needed. PPI. (4) Acute respiratory failure: Acute respiratory failure with hypoxia, oxygen saturation is 77, new oxygen requirement of 3 L, tachypnea 23-26, coarse respiratory sounds, with influenza, acute decompensated systolic CHF. Fluffy opacifications on chest x-ray. Leukopenia 2.56, tachypnea 23, but is not tachycardic, afebrile. Without definitive opacity suggest superimposed bacterial pneumonia, sepsis, although procalcitonin abnormal 0.44, but also in the setting of acute renal dysfunction, however, difficult to 100% say does not have sepsis with leukopenia, tachypnea, malaise, productive cough, renal dysfunction, lactic acid is normal. Will obtain blood culture. (5) Troponin level elevated: Baselines 174, charge 164, discussed with her and her , moderate troponin elevation, does not have chest pain or pressure, but does have decompensated CHF, question of possible worsening cardiomyopathy, additional assessment requested by echocardiogram, possible demand ischemia secondary to respiratory failure, hypertension. As discussed with her cannot exclude NSTEMI possibly related in the last days as a trigger for her decompensation. Will give aspirin, she has been started on anticoagulation with heparin, monitor for risk of bleeding. Monitor PTT. Complete troponin EKG series. Echocardiogram pending. Monitor on telemetry with risk of arrhythmia. (6) Hypertension: Hypertensive urgency in ER, blood pressure 190/98, with decompensated diastolic CHF, troponin ovation, possible demand ischemia, possible discomfort section of CHF secondary to uncontrolled hypertension. She has not been able to take her medications over the last 5 days or so due to nausea, vomiting, secondary to influenza. Hydralazine 2.5 mg IV x 1, monitor for risk of hypotension with renal dysfunction. Amlodipine 5 mg. Reassess blood pressures. Qualifiers: Hypertension type: primary hypertension Qualified Code(s): I10 - Essential (primary) hypertension Plan Stage V kidney disease, has been following with [facility] [employer] in [place]. DM 2, sliding scale insulin. Resume consult carbohydrate diet when able to tolerate. HTN, Chronic venous insufficiency, Chronic urinary and bowel incontinence, Other medical problems PDMP PDMP Reviewed: Not Reviewed Attestations Medical Necessity Statement*: Admission over 2 midnights anticipated for assessment management of acute renal failure, decompensated systolic CHF in a lady with underlying low ejection fraction 35%, acute respiratory failure, influenza infection, hypertensive urgency. Diagnoses HFrEF (heart failure with reduced ejection fraction) I50.20 Acute renal failure, unspecified acute renal failure type N17.9 Acute renal failure type: unspecified Influenza A J10.1 Acute respiratory failure J96.00 Troponin level elevated R79.89 Primary hypertension I10 Hypertension type: primary hypertension
[2024-08-23 12:41] LABS: Albumin Level 3.1 g/dL (3.5-5.2); Anion Gap 26.6 (5-19); Calcium 8.1 mg/dL (8.5-10.5); Carbon Dioxide 15 mmol/L (22-29); Chloride 96 mmol/L (98-107); Creatine Phosphokinase 319 U/L (26-192); Creatinine Clr Calc Pharmacy 12.1862; Glomerular Filtration Rate 9.2 mL/min (90-130); Glucose 168 mg/dL (65-115); Phosphorus 6.1 mg/dL (2.5-4.5); Potassium 3.6 mmol/L (3.5-5.1); Sodium 134 mmol/L (136-145)
[2024-08-23 12:42] LABS: Blood Urea Nitrogen 99 mg/dL (8-23)
[2024-08-23] MEDS: hyDRALAzine 20 mg/mL INJ 1 mL 2.5 MG IVP (12:51)
[2024-08-23] MEDS: amlodipine 5 mg Tablet PO (12:51)
[2024-08-23 14:26] LABS: Troponin 5 6HR Delta -19.1 ng/L (0-12)
--- NOTE | 2024-08-23 14:26 | US_ITS ---
WS: [id number] RENAL ULTRASOUND HISTORY: ARF COMPARISON: 12/03/2023 TECHNIQUE: 2-D and color Doppler imaging of the kidney submitted. Right kidney: 12.8 cm x 6.3 cm x 4.9 cm. Cortex: 1.3 cm Normal echogenicity with no hydronephrosis or mass. Left kidney: 11.2 cm x 5.5 cm x 5.1 cm. Cortex: 1.6 cm Normal echogenicity with no hydronephrosis or mass. Aorta: Normal. Urinary Bladder: Normal distention. US/US renal BI* [id number] IMPRESSION: Normal renal ultrasound.
--- NOTE | 2024-08-23 14:26 | USCV_ITS ---
Nikki Mercado Age: 63 Gender: F : 1960 Exam Date: 08/23/2024 15:42 Ordering Phys: Esdras Pereira MD Technologist: Exam Location: [facility] [place] Indication: lt leg swelling PROCEDURES: The venous duplex Doppler examination of both lower extremities was performed in the standard fashion. The following venous structures were evaluated: common femoral vein, profunda vein, proximal portion of the greater saphenous vein, superficial femoral vein, and the popliteal vein. FINDINGS: Normal 2-D Doppler and augmentation and compressibility throughout the lower extremity venous structures. Additional imaging through the proximal calf veins also reveals no thrombus. Limited evaluation of the greater saphenous vein is patent with no thrombus. There is a bakers cyst in lt pop fossa. CONCLUSIONS No evidence of right lower extremity DVT. No evidence of left lower extremity DVT. Popliteal cyst measuring 4.7 x 1.2cm with internal debris Wilner Bañuelos MD (Electronically Signed) Final Date: 24 August 2024 12:11 S
[2024-08-23 14:28] LABS: Troponin 5 6HR 154.9 ng/L (0-10)
[2024-08-23] MEDS: metOLazone 5 MG Tablet PO (14:39)
[2024-08-23] MEDS: aspirin 325 mg Tablet PO (14:39)
[2024-08-23] MEDS: pantoprazole 40 mg SDV IVP (14:39)
--- NOTE | 2024-08-23 15:18 | PM.CONSULT ---
Providers/Reason For Consult Consulting Physician/Specialty*: kommana/Nephrology Reason for Consult*: Acute on CKD Attending Physician: Esdras Pereira Primary Care Provider: Jacoby Spring MD History of Present Illness History of Present Illness Nikki Mercado is a 63 year old female Patient is a 63-year-old female with past medical history of disease stage V CKD, hypertension diabetes, patient followed by [facility] as outpatient and patient reports that hemodialysis is being discussed. Department patient was found to be hypoxic and tachypneic. Chest x-ray showed pulmonary edema. Creatinine is 5.2 with a BUN of 101 bicarbonate of 15. proBNP is elevated at 70,000. Patient currently is on 3 L O2 by nasal cannula and is in mild distress. Review of Systems Narrative: negative Medications/Allergies Home Medications ?Medication ?Instructions ?Recorded ?Confirmed ?Last Taken ?Type blood-glucose meter #1 ea 07/22/22 08/23/24 09/27/23 Rx potassium chloride 20 mEq 20 meq PO DAILY #90 tabs 08/18/23 08/23/24 08/22/24 Rx tablet,extended release bumetanide 2 mg tablet 2 mg PO DAILY #90 tabs 09/08/23 08/23/24 08/22/24 Rx metolazone 2.5 mg tablet 2.5 mg PO DIRECTED #90 tabs 09/08/23 08/23/24 08/21/24 Rx dexamethasone 0.7 mg intravitreal 0.7 mg intravitreal Q60D 12/09/23 08/23/24 Unknown History implant (Ozurdex) faricimab-svoa 6 mg/0.05 mL 6 mg intravitreal Q6M 12/09/23 08/23/24 Unknown History intravitreal solution (Vabysmo) carvedilol 6.25 mg tablet 6.25 mg PO DAILY 07/27/24 08/23/24 08/22/24 History ergocalciferol (vitamin D2) 1,250 1,250 mcg PO Q7D 07/27/24 08/23/24 08/20/24 History mcg (50,000 unit) capsule Allergies Allergy/AdvReac Type Severity Reaction Status Date / Time sweet potato Allergy ADR-Itching Verified 08/01/24 08:56 Current Medications Generic Name Dose Route Start Last Admin Trade Name Freq PRN Reason Stop Dose Admin Amlodipine Besylate 5 mg 08/23/24 12:40 08/23/24 12:51 Amlodipine 5 Mg Tablet PO 5 mg DAILY JACINTA Administration Aspirin 325 mg 08/23/24 14:25 08/23/24 14:39 Aspirin 325 Mg Tablet PO 325 mg DAILY JACINTA Administration Heparin Sodium/Sodium Chloride 25,000 unit in 500 mls @ 0 mls/hr 08/23/24 09:15 08/23/24 10:02 Heparin Drip IV 14.09 unit/kg/hr CONT JACINTA 23 mls/hr Administration Protocol Per Protocol Metolazone 5 mg 08/23/24 15:30 08/23/24 14:39 Metolazone 5 Mg Tablet PO 5 mg DAILY JACINTA Administration Pantoprazole Sodium 40 mg 08/23/24 14:25 08/23/24 14:39 Pantoprazole 40 Mg Sdv IVP 40 mg DAILY JACINTA Administration PFSH Acute PFSH: Medical History Newly diagnosed diabetes Contusion of left knee Lower leg edema Chronic kidney disease Hypothyroidism Congestive heart failure of unknown etiology Type 2 diabetes mellitus Hypertension Anemia Venous insufficiency (chronic) (peripheral) Cellulitis and abscess of buttock Surgical History History of esophagogastroduodenoscopy (09/29/23) History of colonoscopy (09/29/23) S/P cholecystectomy 1990s in [place], [place] Family History Father CAD (coronary artery disease) Cancer lung cancer Brother Diabetes Denies family history of Ovarian cyst Hyperlipidemia Chronic kidney disease (CKD) Anesthesia complication Family history of thyroid problem Bleeding disorder Hypertension Stroke Social History Smoking and tobacco/nicotine status: never used tobacco/nicotine Alcohol intake: never Substance/Drug Use: never Vitals/I&O/Wt Last Vital Signs Temp 97.9 F 08/23/24 14:44 Pulse 88 08/23/24 14:25 Resp 19 H 08/23/24 14:25 BP 192/87 02/19/25 14:25 Pulse Ox 92 08/23/24 14:25 O2 Del Method Nasal Cannula 08/23/24 14:22 O2 Flow Rate 3 08/23/24 07:56 Weight last 48 hrs Weight 86.5 kg Weight 81.647 kg Physical Exam Narrative: Patient is awake alert no distress on 3 L O2 by nasal cannula PERRLA Crackles bilaterally per report S1-S2 regular rate and rhythm per report Has edema Urinary Catheter Management: Goldstein: Cath Placed During This Visit: yes Urinary Catheter Date of Insertion: 08/23/24 Urinary Catheter Time of Insertion: 09:35 Data 08/23/24 07:56 08/23/24 11:58 A&P Assessment and plan (1) Acute kidney injury superimposed on stage 5 chronic kidney disease, not on chronic dialysis: 1. Acute on chronic kidney disease stage V: Patient followed by [facility] as outpatient -Patient now admitted with pulmonary edema, anemia and metabolic acidosis. -Will place on IV albumin and IV Bumex -Given advanced CKD and respiratory distress I recommended initiation of hemodialysis. Patient will think about it and let us know. Keep her n.p.o. after midnight and arrange for tunneled catheter placement OR tunneled catheter for stent transition to tunneled catheter later. -Avoid contrast studies, place Goldstein catheter 2. Metabolic acidosis: In the setting of MARKEL, will add Bicitra 3. Pancytopenia, question etiology, will check iron studies and order JELENA 4. Hypertension: Blood pressures elevated: Resume carvedilol and will add hydralazine Patient evaluated using audiovisual cart. Time spent 40 minutes. PDMP PDMP Reviewed: Not Reviewed Consult Attestations Medical Necessity Statement: per medicine Coding Level of Care Code Acute Code for Chg Fwd Diagnoses Acute kidney injury superimposed on stage 5 chronic kidney disease, not on chronic dialysis N17.9; N18.5
[2024-08-23] MEDS: citric acid-sodium citrate 30 mL UDC PO (15:50)
[2024-08-23] MEDS: bumetanide 0.25 mg/mL SDV 10 mL 2 MG IVP (15:51)
[2024-08-23] MEDS: albumin 12.5 GM/50 ML VIAL IV (15:52)
--- NOTE | 2024-08-23 17:09 | PC.NURSE ---
Patient is NPO at midnight for diaylsis line insertion. Patient currently on heparin gtt. Spoke with Dr. Browning about when to hold the heparin gtt, he gave verbal orders to hold heparin gtt 6 hours prior to procedure. Will pass on to charge nurse Jori
[2024-08-23 17:54] LABS: Partial Thromboplastin Time 146.4 SECONDS (23.9-36.7)
[2024-08-23] MEDS: acetaminophen 325 mg Tablet 650 MG PO (19:57)
[2024-08-23] MEDS: hyDRALAzine 50 mg Tablet PO (20:24)
[2024-08-23 22:46] LABS: Partial Thromboplastin Time 118.3 SECONDS (23.9-36.7)
[2024-08-24] VITALS (28 sets, daily range): BP systolic 145–194; BP diastolic 67–102; PULSE 75–98; RESP 17–32; TEMP 36.4–37.2; O2SAT 87–100
--- NOTE | 2024-08-24 02:52 | PC.NURSE ---
Heparin drip turned off at 230 am as instructed by dayshift for possible dialysis catheter placement this am. Npo at this time.
[2024-08-24] MEDS: bumetanide 0.25 mg/mL SDV 10 mL 2 MG IVP ×2 (03:17→15:10)
[2024-08-24 03:29] LABS: Hematocrit 31.2 % (36-47); Lymphocytes # 0.3 10^3/uL (0.8-4.8); Lymphocytes % 8.6 %; Mean Corpuscular HGB Conc 32.4 g/dL (30-55); Mean Corpuscular Hemoglobin 31.3 pg (27-33); Mean Corpuscular Volume 96.6 fl (85-98); Mean Platelet Volume 10.3 fL (7.4-10.4); Monocytes # 0.2 10^3/uL (0.2-0.9); Monocytes % 5.2 %; Neutrophils # 2.97 10^3/uL (1.8-7.7); Neutrophils % 85.3 %; Nucleated Red Blood Cells % 0 %; Platelet Count 127 10^3/cmm (157-399); Red Blood Count 3.23 10^6/uL (3.85-5.65); White Blood Count 3.48 10^3/uL (3.29-11.43)
[2024-08-24 03:52] LABS: Alanine Aminotransferase 30 U/L (0-33); Albumin Level 3.2 g/dL (3.5-5.2); Alkaline Phosphatase 631 U/L (35-105); Anion Gap 25.6 (5-19); Aspartate Amino Transferase 39 U/L (0-32); Calcium 8.1 mg/dL (8.5-10.5); Carbon Dioxide 16 mmol/L (22-29); Chloride 99 mmol/L (98-107); Creatinine Clr Calc Pharmacy 12.0609; Glomerular Filtration Rate 8.8 mL/min (90-130); Glucose 163 mg/dL (65-115); Magnesium 2.4 mg/dL (1.7-2.3); Osmolality Calculated 319 mOsm/kg (285-295); Potassium 3.6 mmol/L (3.5-5.1); Sodium 137 mmol/L (136-145); Total Bilirubin 0.5 mg/dL (0.15-1.2); Total Protein 6.2 g/dL (6.6-8.7)
[2024-08-24 03:58] LABS: Blood Urea Nitrogen 100 mg/dL (8-23)
[2024-08-24] MEDS: pantoprazole 40 mg SDV IVP (10:19)
--- NOTE | 2024-08-24 10:22 | P.PN_ITS ---
Subjective 2 Subjective: on 4L nc Medications: Reviewed: Yes Vitals/I&O/Wt Last Vital Signs Temp 97.6 F 08/24/24 08:00 Pulse 85 08/24/24 08:18 Resp 18 08/24/24 08:18 BP 166/81 08/24/24 08:00 Pulse Ox 95 08/24/24 08:18 O2 Del Method Nasal Cannula 08/24/24 08:18 O2 Flow Rate 3 08/24/24 08:18 08/23/24 08/24/24 08/24/24 22:59 06:59 14:59 Intake Total 332.467 / 332.467 142.783 / 475.250 Output Total 1450 / 1450 600 / 2050 400 / 400 Balance -1117.533 / -1117.533 -457.217 / -1574.750 -400 / -400 Weight last 48 hrs Weight 85.275 kg Weight 86.5 kg Weight 81.647 kg Physical Exam 2 Narrative: Patient is awake alert no distress on 4L O2 by nasal cannula PERRLA Crackles bilaterally per report S1-S2 regular rate and rhythm per report Has edema Urinary Catheter Management: Goldstein: Cath Placed During This Visit: yes Reason for Continuing Indwelling Catheter: Accurate Measurement of Urinary Output in Critically Ill Patients Urinary Catheter Date of Insertion: 08/23/24 Urinary Catheter Time of Insertion: 09:35 Data 08/24/24 02:56 08/24/24 02:56 Micro: Microbiology 08/23/24 16:15 Blood Culture - Preliminary Blood SPECIMEN COLLECTED 08/23/24 16:08 Blood Culture - Preliminary Blood SPECIMEN COLLECTED A&P Assessment and plan (1) Acute kidney injury superimposed on stage 5 chronic kidney disease, not on chronic dialysis: 1. Acute on chronic kidney disease stage V: Patient followed by [facility] as outpatient -Patient now admitted with pulmonary edema, anemia and metabolic acidosis. - on IV albumin and IV Bumex -Given advanced CKD and respiratory distress I recommended initiation of hemodialysis. Patient consents for HD initiation. Plan for temporary HD catheter placement today and HD #1 today 2. Metabolic acidosis: In the setting of MARKEL, will add Bicitra 3. Pancytopenia, question etiology, will check iron studies and order JELENA 4. Hypertension: Blood pressures elevated: Resume carvedilol and will add hydralazine Patient evaluated using audiovisual cart. Time spent 40 minutes. PDMP PDMP Reviewed: Not Reviewed Attestations 2 Medical Necessity Statement*: Per medicine team Coding Level of Care Code Acute Code for Chg Fwd Diagnoses Acute kidney injury superimposed on stage 5 chronic kidney disease, not on chronic dialysis N17.9; N18.5
[2024-08-24] MEDS: hyDRALAzine 50 mg Tablet PO ×3 (10:28→22:32)
--- NOTE | 2024-08-24 11:15 | PM.CONSULT ---
Providers/Reason For Consult Consulting Physician/Specialty*: General Surgery Reason for Consult*: Need for dialysis cath Attending Physician: Esdras Pereira Primary Care Provider: Jacoby Spring MD History of Present Illness History of Present Illness Nikki Mercado is a 63 year old female Who is admitted to the hospital with upper respiratory infection and noted to have acute on chronic CKD. She will need dialysis I was asked to put the dialysis catheter. Review of Systems General: Reports: 10 or more systems reviewed and unremarkable except in HPI and below Medications/Allergies Home Medications ?Medication ?Instructions ?Recorded ?Confirmed ?Last Taken ?Type blood-glucose meter #1 ea 07/22/22 08/23/24 09/27/23 Rx potassium chloride 20 mEq 20 meq PO DAILY #90 tabs 08/18/23 08/23/24 08/22/24 Rx tablet,extended release bumetanide 2 mg tablet 2 mg PO DAILY #90 tabs 09/08/23 08/23/24 08/22/24 Rx metolazone 2.5 mg tablet 2.5 mg PO DIRECTED #90 tabs 09/08/23 08/23/24 08/21/24 Rx dexamethasone 0.7 mg intravitreal 0.7 mg intravitreal Q60D 12/09/23 08/23/24 Unknown History implant (Ozurdex) faricimab-svoa 6 mg/0.05 mL 6 mg intravitreal Q6M 12/09/23 08/23/24 Unknown History intravitreal solution (Vabysmo) carvedilol 6.25 mg tablet 6.25 mg PO DAILY 07/27/24 08/23/24 08/22/24 History ergocalciferol (vitamin D2) 1,250 1,250 mcg PO Q7D 07/27/24 08/23/24 08/20/24 History mcg (50,000 unit) capsule Allergies Allergy/AdvReac Type Severity Reaction Status Date / Time sweet potato Allergy ADR-Itching Verified 08/01/24 08:56 Current Medications Generic Name Dose Route Start Last Admin Trade Name Freq PRN Reason Stop Dose Admin Acetaminophen 650 mg 08/23/24 12:50 08/23/24 19:57 Acetaminophen 325 Mg Tablet PO 650 mg Q6H PRN Administration Mild/Mod Pain Or Temp >/= 101 Amlodipine Besylate 5 mg 08/23/24 12:40 08/24/24 10:15 Amlodipine 5 Mg Tablet PO Not Given DAILY JACINTA Aspirin 325 mg 08/23/24 14:25 08/24/24 10:15 Aspirin 325 Mg Tablet PO Not Given DAILY JACINTA Bumetanide 2 mg 08/23/24 15:30 08/24/24 03:17 Bumetanide 0.25 Mg/Ml Sdv 10 Ml IVP 2 mg Q12H JACINTA Administration Hydralazine HCl 50 mg 08/23/24 21:00 08/24/24 10:28 Hydralazine 50 Mg Tablet PO 50 mg TID JACINTA Administration Heparin Sodium/Sodium Chloride 25,000 unit in 500 mls @ 0 mls/hr 08/23/24 09:15 08/24/24 10:15 Heparin Drip IV Not Given CONT JACINTA Protocol Per Protocol Metolazone 5 mg 08/23/24 15:30 08/24/24 10:15 Metolazone 5 Mg Tablet PO Not Given DAILY JACINTA Pantoprazole Sodium 40 mg 08/23/24 14:25 08/24/24 10:19 Pantoprazole 40 Mg Sdv IVP 40 mg DAILY JACINTA Administration PFSH Acute PFSH: Medical History Newly diagnosed diabetes Contusion of left knee Lower leg edema Chronic kidney disease Hypothyroidism Congestive heart failure of unknown etiology Type 2 diabetes mellitus Hypertension Anemia Venous insufficiency (chronic) (peripheral) Cellulitis and abscess of buttock Surgical History History of esophagogastroduodenoscopy (09/29/23) History of colonoscopy (09/29/23) S/P cholecystectomy 1990s in [place], [place] Family History Father CAD (coronary artery disease) Cancer lung cancer Brother Diabetes Denies family history of Ovarian cyst Hyperlipidemia Chronic kidney disease (CKD) Anesthesia complication Family history of thyroid problem Bleeding disorder Hypertension Stroke Social History Smoking and tobacco/nicotine status: never used tobacco/nicotine Alcohol intake: never Substance/Drug Use: never Vitals/I&O/Wt Last Vital Signs Temp 97.6 F 08/24/24 08:00 Pulse 85 08/24/24 08:18 Resp 18 08/24/24 08:18 BP 166/81 08/24/24 08:00 Pulse Ox 95 08/24/24 08:18 O2 Del Method Nasal Cannula 08/24/24 08:18 O2 Flow Rate 3 08/24/24 08:18 08/23/24 08/24/24 08/24/24 22:59 06:59 14:59 Intake Total 332.467 / 332.467 142.783 / 475.250 Output Total 1450 / 1450 600 / 2050 400 / 400 Balance -1117.533 / -1117.533 -457.217 / -1574.750 -400 / -400 Weight last 48 hrs Weight 188 lb Weight 190 lb 11.198 oz Weight 180 lb Physical Exam Narrative: General : Patient is well developed , no acute distress, oriented x3 Head : Normal cephalic, a-traumatic. Nose : Mucous membranes are without erythema. Lungs : Equal chest rise bilaterally, no use of accessory muscles, trachea is midline. CV : Rate and rhythm are normal. Abdomen : Soft, ND, NT, no g/r/m Extremities : Normal bilateral groin exam. Back : non-tender to palpation, no CVA tenderness. Urinary Catheter Management: Goldstein: Cath Placed During This Visit: yes Reason for Continuing Indwelling Catheter: Accurate Measurement of Urinary Output in Critically Ill Patients Urinary Catheter Date of Insertion: 08/23/24 Urinary Catheter Time of Insertion: 09:35 Data 08/24/24 02:56 08/24/24 02:56 Micro: Microbiology 08/23/24 16:15 Blood Culture - Preliminary Blood SPECIMEN COLLECTED 08/23/24 16:08 Blood Culture - Preliminary Blood SPECIMEN COLLECTED A&P Assessment and plan (1) Acute kidney injury superimposed on stage 5 chronic kidney disease, not on chronic dialysis: Plan After complete gnosticist of recent benefits with the patient including explanation risks of catheter malfunction, hematoma, injury to surrounding structures, need for additional procedures. She agreed to proceed. We did a right femoral nontunneled dialysis catheter. Catheter was working well after the procedure was finished. Patient remained stable during the duration of the procedure and catheter is ready to be used as needed. PDMP PDMP Reviewed: Not Reviewed Coding Level of Care Code 33436 Diagnoses Acute kidney injury superimposed on stage 5 chronic kidney disease, not on chronic dialysis N17.9; N18.5
--- NOTE | 2024-08-24 11:17 | PM.ACPR ---
Procedure/Consent Time out: Time Out Performed: Yes Consent: Consent for Procedure: Consent obtained from patient, Risks & Benefits reviewed and Agrees to proceed with procedure Procedure Narrative: With the patient explained position and proceeded to evaluate bilateral groins, the right groin had a good femoral vein to use abscess target. The right groin was prepped and draped in usual sterile fashion. A timeout was conducted. I then proceeded to infiltrate local anesthesia on top of the right femoral vein. The vein was then cannulated with an 18-gauge needle and a wire was advanced into the vein. This was done under direct ultrasound visualization. The needle was then removed and the catheter left in place and position verified with ultrasound. When standing there is lunging there technique I proceeded to dilate the tract with subsequentially sizes of dilators. I then advanced a 20 cm dual-lumen dialysis catheter. The wire was then removed. The lumens were tested and were working fine. The catheter was fixed using #3-0 silk. A Biopatch and sterile dressing was applied. After the dressing was placed I retested the catheter and was working fine with good flow in order to dialysis. Patient remained stable. Acute Procedures Epistaxis Control: Time out performed: Yes
--- NOTE | 2024-08-24 11:30 | PC.NURSE ---
Dr. Rosenberg ordered to wait 1 hour after inserting the dialysis catheter line to restart the heparin drip. Dr. Pereira was notified and he ordered to get a PTT and to start the Heparin drip back up per protocol.
--- NOTE | 2024-08-24 11:33 | P.PN_ITS ---
Subjective 2 Subjective: She states she has been better . It is quite cold in her room this morning due to insufficiency of the heating system. She has extra blankets on. The heating system is being looked into, we discussed also setting up a bit harder for her. She has some cough, nonproductive. No nausea vomiting or diarrhea. Vitals/I&O/Wt Last Vital Signs Temp 97.6 F 08/24/24 08:00 Pulse 85 08/24/24 08:18 Resp 18 08/24/24 08:18 BP 166/81 08/24/24 08:00 Pulse Ox 95 08/24/24 08:18 O2 Del Method Nasal Cannula 08/24/24 08:18 O2 Flow Rate 3 08/24/24 08:18 08/23/24 08/24/24 08/24/24 22:59 06:59 14:59 Intake Total 332.467 / 332.467 142.783 / 475.250 Output Total 1450 / 1450 600 / 2050 400 / 400 Balance -1117.533 / -1117.533 -457.217 / -1574.750 -400 / -400 Weight last 48 hrs Weight 85.275 kg Weight 86.5 kg Weight 81.647 kg Physical Exam 2 Narrative: Accompanied by her and son. Const: COMMON NORMALS: patient oriented x3 and alert GENERAL APPEARANCE: c ooperative ORIENTATION/CONSCIOUSNESS: Yes awake HENMT: COMMON NORMALS: oropharynx normal Neck/C-Spine: COMMON NORMALS: no JVD Resp: COMMON NORMALS: normal respiratory effort and clear to auscultation bilaterally AUSCULTATION: clear to auscultation bilaterally OTHER: Coarse breath sounds, slightly improved. Cardio: COMMON NORMALS: no JVD, regular rhythm, S1 normal heart sound present, S2 normal heart sound present and No murmurs present (Cardio) RHYTHM: regular rhythm HEART SOUNDS: S1 normal heart sound present and S2 normal heart sound present GI: COMMON NORMALS: Normal to inspection, nondistended, normoactive bowel sounds present, Soft to palpation and non-tender PALPATION: Yes Soft to palpation Extremity: COMMON NORMALS: no joint enlargement GENERAL: Yes edema (3+ BLLE) Neuro: COMMON NORMALS: patient oriented x3 and moves all extremities S ENSORIUM/ORIENTATION: Yes alert Skin: COMMON NORMALS: no rashes or lesions noted GENERAL SKIN EXAM: no rashes or lesions noted Urinary Catheter Management: Goldstein: Cath Placed During This Visit: yes Reason for Continuing Indwelling Catheter: Accurate Measurement of Urinary Output in Critically Ill Patients Urinary Catheter Date of Insertion: 08/23/24 Urinary Catheter Time of Insertion: 09:35 Data 08/24/24 02:56 08/24/24 02:56 Micro: Microbiology 08/23/24 16:15 Blood Culture - Preliminary Blood SPECIMEN COLLECTED 08/23/24 16:08 Blood Culture - Preliminary Blood SPECIMEN COLLECTED A&P Assessment and plan (1) Acute respiratory failure: Requiring 4-5 L of oxygen by nasal cannula, some improvement in coarse breath sounds, but still with mild tachypnea. Rare intermittent cough without much phlegm. Without improvement during the day, switched over to heated high flow. Added Zosyn empirically. Continued on only clear liquids, with addition of Ensure clear, although was n.p.o. this morning for placement of dialysis catheter. Not a candidate for Tamiflu with renal dysfunction. Despite session of hemodialysis, treatment measures, heated high flow oxygen, with increasing work of breathing, obtain chest x-ray, ABG, with hypoxemia, although hypocapnia. Patchy infiltrates on chest x-ray, with suspected ARDS. NIPPV considered, but given in recent work of breathing with lack of improvement, discussed with ER physician to further see her and discuss and proceed to the safer route with intubation and mechanical ventilation to reduce risk of progression to impending respiratory arrest. With caution with regards to medications given renal failure, low EF. Her is no longer here. Reached out to her , although could not reach him on the phone number listed. (2) HFrEF (heart failure with reduced ejection fraction): In negative balance today on review of intake and output, reviewed vitals, potassium, magnesium, BUN, creatinine. With otherwise unimproved renal function, dialysis catheter has been placed, and underwent hemodialysis with removal of 2 and half liters. Obtained echocardiogram, reviewed, without worsening of ejection fraction, 39%, global LV hypokinesis. Moderately increased left atrial size. RV normal size and function. Lower extremity duplex assessed, negative for DVT. Worsening condition over the last 6 days, triggered by influenza, with respiratory failure, new oxygen Sonam, sat 77% on presentation, tachypnea 23- 25, requiring 3 L of oxygen, with pulmonary congestive changes/pulm edema on chest x-ray, with 3+ lower extremity edema, with decompensated HFrEF, baseline EF 35% on review of prior echocardiogram. Without chest pain or pressure, but with moderate troponin elevation, baseline 174, 2-hour 164. Discussed with her possibility of ID within the last 2 days, versus demand ischemia secondary to respiratory failure. Complete troponin EKG series. Received 60 mg IV Lasix dose. At home has been taking Bumex daily 2 mg and every other day taking metolazone. Has not been able to take or keep down any of her medications over the last 5 days. In ER also very hypertensive, blood pressure 190/98, hypertension possibly contributing to decompensation of CHF. (3) Acute renal failure: Without improvement of renal parameters this morning, BUN up to 114 creatinine 5. Has been producing urine. However, with persistent respiratory failure. Heparin was held overnight, dialysis catheter access obtained, additionally held after placement then resumed, underwent dialysis, 2.5 L removed. Later this evening also bleeding around dialysis catheter, pressure was held, surgery was notified, hold heparin further overnight. Catheter checks requested. Acute renal failure, superimposed on stage IV-V chronic kidney disease. BUN up to 101, creatinine one 5.3, with anion gap acidosis, so far producing urine. Monitor intake and output. Continue diuresis for the CHF, possible congestive nephropathy. Goldstein catheter placed for accurate AVANI. Repeat chemistry, monitor for risk of arrhythmia with cardiac monitoring. Reassess electrolytes. CK has been checked, mildly elevated 319. Reviewed kidney ultrasound. No obstructive uropathy. Qualifiers: Acute renal failure type: unspecified Qualified Code(s): N17.9 - Acute kidney failure, unspecified (4) Influenza A: As above. Not a candidate for Tamiflu at this time due to severe renal dysfunction. With poor oral intake, nausea, vomiting, unable to tolerate food drink or her medications over the last 5 days or so. Zofran as needed. PPI. (5) Troponin level elevated: Reviewed echocardiogram, without regional wall motion metabolic, but does have diffuse LV hypokinesis. Without worsening of EF. Decreasing trend. Do suspect demand ischemia secondary to respiratory failure, however, consider further risk stratification once her condition is more stable. Baselines 174, charge 164, discussed with her and her , moderate troponin elevation, does not have chest pain or pressure, but does have decompensated CHF, question of possible worsening cardiomyopathy, additional assessment by echocardiogram, possible demand ischemia secondary to respiratory failure, hypertension. As discussed with her cannot exclude NSTEMI possibly related in the last days as a trigger for her decompensation. Will give aspirin, she has been started on anticoagulation with heparin, monitor for risk of bleeding. Monitor PTT. Complete troponin EKG series. Echocardiogram pending. Monitor on telemetry with risk of arrhythmia. (6) Hypertension: Hypertensive urgency in ER, blood pressure 190/98, with decompensated diastolic CHF, troponin elevation, possible demand ischemia, possible discomfort section of CHF secondary to uncontrolled hypertension. She has not been able to take her medications over the last 5 days or so due to nausea, vomiting, secondary to influenza. Hydralazine 2.5 mg IV x 1, monitor for risk of hypotension with renal dysfunction. Amlodipine 5 mg. Blood pressure is better but would benefit from further optimization, but with pending intubation, sedation, renal dysfunction hold off on increasing morphine dose for now, reassess blood pressures. 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 DM 2, sliding scale insulin. Resume consult carbohydrate diet when able to tolerate. HTN, Chronic venous insufficiency, Chronic urinary and bowel incontinence, Other medical problems PDMP PDMP Reviewed: Not Reviewed Attestations 2 Medical Necessity Statement*: Continue admission for assessment management of worsening respiratory failure with influenza infection with progression to ARDS, decompensated congestive heart failure, acute renal failure and lady with underlying low ejection fraction, current kidney disease, diabetes, hypertension, additional comorbidities. Coding Level of Care Code Critical Care >/= 30 minutes Critical care time (in minutes): 55 The high probability of a clinically significant, sudden or life threatening deterioration, as referenced in this documentation, required my full and direct attention, intervention and personal management. The critical care time shown is in addition to time spent performing any reported separately billable procedures and includes the following: [x] Data and vital sign review and interpretation [x ] Patient assessment, examination and intervention [x] Medication orders and management [x] Patient/Family updates as able [x] Care Coordination and Documentation. Diagnoses Acute respiratory failure J96.00 HFrEF (heart failure with reduced ejection fraction) I50.20 Acute renal failure, unspecified acute renal failure type N17.9 Acute renal failure type: unspecified Influenza A J10.1 Troponin level elevated R79.89 Primary hypertension I10 Hypertension type: primary hypertension
[2024-08-24] MEDS: ferric gluconate 125 MG in sodium chloride 0.9% (100 ml) 100 ML 110 MG IV (12:02)
[2024-08-24] MEDS: heparin, porcine 1,000 unit/mL INJ 10 mL 1000 UNIT IV (12:18)
[2024-08-24 12:21] LABS: Partial Thromboplastin Time 29.4 SECONDS (23.9-36.7)
[2024-08-24 13:21] LABS: Hepatitis B Surface AB < 3.5 (11.5-1000); Hepatitis B Surface Antigen Non-Reactive (Nonreactive)
[2024-08-24] MEDS: piperacillin-tazobactam 3.375 GM in sodium chloride 0.9% (plus) 50 ML IV (15:09)
[2024-08-24] MEDS: acetaminophen 325 mg Tablet 650 MG PO (15:10)
[2024-08-24] MEDS: lanolin oint 7 gm 1 APPLIC TOPICAL (15:26)
--- NOTE | 2024-08-24 18:58 | XRR_ITS ---
PROCEDURE INFORMATION: Exam: XR Chest Exam date and time: 08/24/2024 7:19 PM Age: 63 years old Clinical indication: Other: Low o2; Additional info: Hypoxia TECHNIQUE: Imaging protocol: Radiologic exam of the chest. Views: 1 view. COMPARISON: CR XR chest 1V portable [id number] 08/23/2024 7:46 AM FINDINGS: Lungs: Multifocal patchy consolidations in both mid and lower lung zones and to a lesser extent upper lung zones. Pleural spaces: Small bilateral pleural effusions. Heart/Mediastinum: The heart is enlarged. Bones/joints: Unremarkable. XR/XR chest 1V portable [id number] IMPRESSION: Increase in bilateral pulmonary consolidations with bilateral pleural effusions, suggestive of pneumonia versus pulmonary edema.
--- NOTE | 2024-08-24 19:00 | PC.NURSE ---
Patient pressed their call light because they saw blood on their gown. Dialysis line was assessed and their was bleeding that was occurring around the catheter site. Nurse held pressure and put a sandbag on it. Dr. Rosenberg was contacted and he ordered to pause the Heparin drip until morning. Dr. Pereira was notified about the bleeding and that the patient was having more work of breathing. Doctor Pereira ordered a chest X-ray stat and an ABG to be obtained. Respiratory therapist was also contacted about the work of breathing.
[2024-08-24 19:37] LABS: ABG PCO2 30.8 mmHg (35-45); ABG PH Result 7.44 (7.35-7.45); Arterial Blood Gas Hematocrit 31.6 % (37-47); Base Excess ABG -2.8 mmol/L (-2.0-2.0); Blood Gas Operator Identificat SAM; Blood Gas Sample Site Brachial, right; Blood Gas Sample Type Arterial; HCO3 ABG 20.7 mmol/L (22-26); Oxygen Device NC; PO2 ABG 56.8 mmHg (80.0-100.0); PO2 FiO2 Ratio Arterial Blood 71
--- NOTE | 2024-08-24 19:59 | XRR_ITS ---
PROCEDURE INFORMATION: Exam: XR Chest Exam date and time: 08/24/2024 8:35 PM Age: 63 years old Clinical indication: Other: Intubation; Additional info: Post-intubation TECHNIQUE: Imaging protocol: Radiologic exam of the chest. Views: 1 view. COMPARISON: CR (CHEST, ) 08/24/2024 7:19 PM FINDINGS: Tubes, catheters and devices: Tip of the ET tube is 2.8 cm proximal to the sharan. Tip of the feeding tube is just distal to the GE junction and can be advanced by 6 cm. Lungs: Similar multifocal fluffy patchy airspace opacities. Pleural spaces: Similar bilateral pleural effusions. Heart/Mediastinum: The heart is enlarged. Bones/joints: Unremarkable. XR/XR chest 1V portable [id number] IMPRESSION: 1. Post intubation with the ET tube seen at 2.8 cm proximal to the sharan. 2. The feeding tube is at the GE junction and can be advanced by 6 cm. 3. Stable bilateral pleural effusions with multifocal airspace opacities.
[2024-08-24] MEDS: etomidate 2 mg/mL INJ SDV 10 mL 20 MG IVP (20:28)
[2024-08-24] MEDS: succinylcholine 20 mg/mL SDV 10mL 100 MG IVP (20:28)
[2024-08-24] MEDS: propofol 1,000 MG/100 ML INJ 2.09 MG IV (20:30)
--- NOTE | 2024-08-24 20:35 | PM.EVENT ---
Event Note Event Note: Received a call from Dr. Pereira about patient's worsening respiratory failure, patient was getting tired, worn out, patient is already on high flow nasal cannula at the max setting. Therefore we decided to electively intubate the patient. Patient was given 20 mg of etomidate 100 mg of succinylcholine IV push, 8-0 ET tube was inserted visually with video intubating scope, success on first attempt, visually noted ET tube going through the vocal cords, no breath sounds over epigastrium, bilateral breath sounds over lungs. ET tube was secured at 23 cm at the teeth. Patient was then placed on the ventilator per respiratory. Chest x-ray was ordered for confirmation
[2024-08-24 20:37] LABS: Partial Thromboplastin Time 132.5 SECONDS (23.9-36.7)
[2024-08-24] MEDS: fentaNYL 1,000 MCG/100 ML BAG 2.5 MCG IV (20:57)
--- NOTE | 2024-08-24 21:43 | XRR_ITS ---
PROCEDURE INFORMATION: Exam: XR Chest Exam date and time: 08/24/2024 9:50 PM Age: 63 years old Clinical indication: Device placement; Ng tube; Additional info: Og tube placement TECHNIQUE: Imaging protocol: Radiologic exam of the chest. Views: 1 view. COMPARISON: CR (CHEST, ) 08/24/2024 8:35 PM FINDINGS: Tubes, catheters and devices: Tip of the ET tube is 2 cm proximal to the sharan. Tip of the feeding tube is in the stomach. Lungs: Stable multilobar airspace opacities. Pleural spaces: Stable bilateral pleural effusions. Heart/Mediastinum: The heart is enlarged. Bones/joints: Unremarkable. XR/XR chest 1V portable [id number] IMPRESSION: Tip of the feeding tube is in the stomach.
--- NOTE | 2024-08-24 21:47 | PC.NURSE ---
Order obtained from Dr. Pereira to intubate patient. Dr. Colon from ER came and intubated patient. Patient's has been updated. Night hospitalist Dr. Quezada made aware of intubation as well.
[2024-08-25] VITALS (98 sets, daily range): BP systolic 93–173; BP diastolic 47–72; PULSE 61–106; RESP 12–27; TEMP 36.7–37.2; O2SAT 90–99
[2024-08-25 00:50] LABS: ABG PCO2 38.5 mmHg (35-45); ABG PH Result 7.39 (7.35-7.45); Arterial Blood Gas Hematocrit 29.7 % (37-47); Base Excess ABG -1.7 mmol/L (-2.0-2.0); Blood Gas Operator Identificat SAM; Blood Gas Sample Site Brachial, right; Blood Gas Sample Type Arterial; HCO3 ABG 23.1 mmol/L (22-26); Oxygen Device VENT; PO2 ABG 90.6 mmHg (80.0-100.0); PO2 FiO2 Ratio Arterial Blood 151
[2024-08-25] MEDS: chlorhexidine gluconate 4% Btl 118 mL 1 APPLIC TOPICAL (01:41)
[2024-08-25] MEDS: propofol 1,000 MG/100 ML INJ 18.77 MG IV (01:47)
[2024-08-25] MEDS: bumetanide 0.25 mg/mL SDV 10 mL 2 MG IVP ×2 (03:32→15:22)
[2024-08-25] MEDS: piperacillin-tazobactam 3.375 GM in sodium chloride 0.9% (plus) 50 ML IV ×2 (03:32→15:22)
[2024-08-25 04:12] LABS: Hematocrit 25.5 % (36-47); Lymphocytes # 0.2 10^3/uL (0.8-4.8); Lymphocytes % 4.8 %; Mean Corpuscular HGB Conc 33.3 g/dL (30-55); Mean Corpuscular Hemoglobin 31.1 pg (27-33); Mean Corpuscular Volume 93.4 fl (85-98); Mean Platelet Volume 10.8 fL (7.4-10.4); Monocytes # 0.1 10^3/uL (0.2-0.9); Monocytes % 1.9 %; Neutrophils # 3.82 10^3/uL (1.8-7.7); Neutrophils % 92.1 %; Nucleated Red Blood Cells % 0.5 %; Platelet Count 102 10^3/cmm (157-399); Red Blood Count 2.73 10^6/uL (3.85-5.65); Red Cell Distribution Width 14.4 % (12.1-15.1); White Blood Count 4.15 10^3/uL (3.29-11.43)
[2024-08-25 04:31] LABS: Alanine Aminotransferase 25 U/L (0-33); Albumin Level 2.7 g/dL (3.5-5.2); Alkaline Phosphatase 495 U/L (35-105); Anion Gap 19.1 (5-19); Aspartate Amino Transferase 49 U/L (0-32); Blood Urea Nitrogen 74 mg/dL (8-23); Calcium 7.7 mg/dL (8.5-10.5); Carbon Dioxide 21 mmol/L (22-29); Chloride 99 mmol/L (98-107); Creatinine Clr Calc Pharmacy 12.8482; Globulin 2.7 g/dL (1.3-4.6); Glomerular Filtration Rate 10.8 mL/min (90-130); Glucose 133 mg/dL (65-115); Magnesium 2.2 mg/dL (1.7-2.3); Osmolality Calculated 306 mOsm/kg (285-295); Phosphorus 5.3 mg/dL (2.5-4.5); Potassium 3.1 mmol/L (3.5-5.1); Sodium 136 mmol/L (136-145); Total Bilirubin 0.5 mg/dL (0.15-1.2); Total Protein 5.4 g/dL (6.6-8.7)
[2024-08-25 04:48] LABS: Slide Review Slide Review Perform
[2024-08-25] MEDS: fentaNYL 2,500 MCG/250 ML BAG 10 MCG IV (04:53)
[2024-08-25] MEDS: aspirin 325 mg Tablet PO (08:19)
[2024-08-25] MEDS: metOLazone 5 MG Tablet PO (08:19)
[2024-08-25] MEDS: pantoprazole 40 mg SDV IVP (08:20)
[2024-08-25] MEDS: potassium chloride oral liq 20 mEq/15 mL UDC PO (08:31)
[2024-08-25] MEDS: propofol 1,000 MG/100 ML INJ 14.6 MG IV ×2 (08:54→22:20)
--- NOTE | 2024-08-25 09:29 | PC.NUTR ---
TF consult received. Recommend Nepro 1.8 beginning at 10mls/hr and increasing 10mls Q4-8H as tolerated to goal rate of 30mls/hr w/FWF 100mls Q4H or per MD discretion.
[2024-08-25] MEDS: heparin, porcine 1,000 unit/mL INJ 10 mL 1000 UNIT IV (11:01)
--- NOTE | 2024-08-25 11:14 | PC.HD ---
Heparin 1000 units loading dose administered via HD catheter at 1101 per school health assistant's orders. Per school health assistant's verbal orders, attempt to remove 3-3.5L instead of 2L written. Patient's BP is soft, requested PRN albumin from primary RN.
[2024-08-25] MEDS: albumin 12.5 GM/50 ML VIAL IV (11:28)
[2024-08-25] MEDS: norepinephrine 4 MG/250 ML BAG 7.5 MG IV (11:30)
--- NOTE | 2024-08-25 11:33 | ECG_ITS ---
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: : 1960 Requested By: Esdras Pereira Order Number: [id number] Reading MD: CALE SOTELO Measurements Intervals [place] Rate: 72 P: 60 UT: 139 QRS: -5 QRSD: 109 T: -64 QT: 428 QTc: 469 Interpretive Statements SINUS RHYTHM INCOMPLETE RIGHT BUNDLE BRANCH BLOCK [90+ ms QRS DURATION, TERMINAL R IN V1/V2, 40+ ms S IN I/aVL/V4/V5/V6] NONSPECIFIC ST & T-WAVE ABNORMALITY Compared to ECG 08/23/2024 10:40:11 Incomplete right bundle-branch block now present T-wave abnormality now present Intraventricular conduction delay no longer present Electronically Signed On 08-29-2024 23:44:19 CHAIRMAN by CALE SOTELO [email or web address]
[2024-08-25 12:31] LABS: Troponin(5th) Baseline 225 ng/L (0-10)
--- NOTE | 2024-08-25 12:49 | P.PN_ITS ---
Subjective 2 Subjective: Overnight events noted, patient got intubated last night due to respiratory distress and hypoxia Status post dialysis yesterday with 3 L fluid removed Medications: Reviewed: Yes Vitals/I&O/Wt Last Vital Signs Temp 98.4 F 08/25/24 11:13 Pulse 106 H 08/25/24 11:45 Resp 25 H 08/25/24 11:37 BP 141/65 08/25/24 11:45 Pulse Ox 95 08/25/24 11:45 O2 Del Method Mechanical Ventilation 08/25/24 08:30 O2 Flow Rate 60 08/24/24 18:17 FiO2 40 08/25/24 11:37 08/24/24 08/25/24 08/25/24 22:59 06:59 14:59 Intake Total 1313.338 / 1313.338 250.347 / 1563.685 74.333 / 74.333 Output Total 3050 / 3675 150 / 3825 Balance -1736.662 / -2361.662 100.347 / -2261.315 74.333 / 74.333 Weight last 48 hrs Weight 67.358 kg Weight 69.5 kg Weight 85.275 kg Weight 86.5 kg Physical Exam 2 Narrative: Patient is intubated and sedated Urinary Catheter Management: Goldstein: Cath Placed During This Visit: yes Reason for Continuing Indwelling Catheter: Accurate Measurement of Urinary Output in Critically Ill Patients Urinary Catheter Date of Insertion: 08/23/24 Urinary Catheter Time of Insertion: 09:35 Data 08/25/24 03:41 08/25/24 03:41 Micro: Microbiology 08/23/24 16:15 Blood Culture - Preliminary Blood NEGATIVE TO DATE 08/23/24 16:08 Blood Culture - Preliminary Blood NEGATIVE TO DATE A&P Assessment and plan (1) Acute kidney injury superimposed on stage 5 chronic kidney disease, not on chronic dialysis: 1. Acute on chronic kidney disease stage V->ESRD : Patient followed by [facility] as outpatient -Patient admitted with pulmonary edema, anemia and metabolic acidosis. -Given advanced CKD and respiratory distress recommended initiation of hemodialysis. Patient consents for HD initiation. s/p temporary HD catheter placement and HD started, HD #2 today, limit UF due to hypotension 2. Acute respiratory failure: In the setting of pulmonary and influenza,, supportive care HD as above 2. Metabolic acidosis: In the setting of MARKEL, monitor 3. Pancytopenia, question etiology, will check iron studies and order JELENA 4. Hypertension: Blood pressures elevated: Resume carvedilol and will add hydralazine Patient evaluated using audiovisual cart. Time spent 40 minutes. PDMP PDMP Reviewed: Not Reviewed Attestations 2 Medical Necessity Statement*: Per medicine team Coding Level of Care Code Acute Code for Chg Fwd Diagnoses Acute kidney injury superimposed on stage 5 chronic kidney disease, not on chronic dialysis N17.9; N18.5
--- NOTE | 2024-08-25 13:33 | P.PN_ITS ---
Vitals/I&O/Wt Last Vital Signs Temp 98.4 F 08/25/24 11:13 Pulse 88 08/25/24 12:45 Resp 25 H 08/25/24 11:37 BP 132/58 08/25/24 12:45 Pulse Ox 95 08/25/24 12:45 O2 Del Method Mechanical Ventilation 08/25/24 12:45 O2 Flow Rate 60 08/24/24 18:17 FiO2 40 08/25/24 12:45 08/24/24 08/25/24 08/25/24 22:59 06:59 14:59 Intake Total 1313.338 / 1313.338 250.347 / 1563.685 81.333 / 81.333 Output Total 3050 / 3675 150 / 3825 50 / 50 Balance -1736.662 / -2361.662 100.347 / -2261.315 31.333 / 31.333 Weight last 48 hrs Weight 67.358 kg Weight 69.5 kg Weight 85.275 kg Weight 86.5 kg Physical Exam 2 Const: COMMON NORMALS: patient oriented x3 and alert GENERAL APPEARANCE: c ooperative ORIENTATION/CONSCIOUSNESS: Yes awake HENMT: COMMON NORMALS: oropharynx normal Neck/C-Spine: COMMON NORMALS: no JVD Resp: COMMON NORMALS: normal respiratory effort and clear to auscultation bilaterally AUSCULTATION: clear to auscultation bilaterally OTHER: Coarse breath sounds improved. Cardio: COMMON NORMALS: no JVD, regular rhythm, S1 normal heart sound present, S2 normal heart sound present and No murmurs present (Cardio) RHYTHM: regular rhythm HEART SOUNDS: S1 normal heart sound present and S2 normal heart sound present GI: COMMON NORMALS: Normal to inspection, nondistended, normoactive bowel sounds present, Soft to palpation and non-tender PALPATION: Yes Soft to palpation Extremity: COMMON NORMALS: no joint enlargement GENERAL: Yes edema (3+ BLLE) Neuro: COMMON NORMALS: patient oriented x3 and moves all extremities S ENSORIUM/ORIENTATION: Yes alert Skin: COMMON NORMALS: no rashes or lesions noted GENERAL SKIN EXAM: no rashes or lesions noted Urinary Catheter Management: Goldstein: Cath Placed During This Visit: yes Reason for Continuing Indwelling Catheter: Accurate Measurement of Urinary Output in Critically Ill Patients Urinary Catheter Date of Insertion: 08/23/24 Urinary Catheter Time of Insertion: 09:35 Data 02/21/25 03:41 08/25/24 03:41 Micro: Microbiology 08/23/24 16:15 Blood Culture - Preliminary Blood NEGATIVE TO DATE 08/23/24 16:08 Blood Culture - Preliminary Blood NEGATIVE TO DATE A&P Assessment and plan (1) Acute respiratory failure: Reviewed vitals, ventilator settings. Sedation. Stop fentanyl. Intubated, started mechanical ventilatory support last night. Oxygenation gradually improving. Noted in negative balance. Today additional hemodialysis. Wean sedation breathing trial tomorrow. Continue supportive measures for influenza. Continue mechanical ventilatory support, continue to optimize volume status. Continue to reassess recovery from severe fluids and ARDS. Will repeat chest x-ray and ABG in the morning. With malnutrition over the preceding days with poor oral intake, nausea, started on trophic feeds. Not a candidate for Tamiflu with renal dysfunction. (2) HFrEF (heart failure with reduced ejection fraction): Continue HD, bumetanide, metolazone. Monitor I&O Monitor for risk of electro deficiency. Monitor on telemetry. With concern for ST depression on telemetry during dialysis, obtained troponin EKG series. In negative balance today on review of intake and output, reviewed vitals, potassium, magnesium, BUN, creatinine. With otherwise unimproved renal function, dialysis catheter has been placed, and underwent hemodialysis with removal of 2 and half liters. Obtained echocardiogram, reviewed, without worsening of ejection fraction, 39%, global LV hypokinesis. Moderately increased left atrial size. RV normal size and function. Lower extremity duplex assessed, negative for DVT. Worsening condition over the last 6 days, triggered by influenza, with respiratory failure, new oxygen Sonam, sat 77% on presentation, tachypnea 23- 25, requiring 3 L of oxygen, with pulmonary congestive changes/pulm edema on chest x-ray, with 3+ lower extremity edema, with decompensated HFrEF, baseline EF 35% on review of prior echocardiogram. Without chest pain or pressure, but with moderate troponin elevation, baseline 174, 2-hour 164. Discussed with her possibility of IL within the last 2 days, versus demand ischemia secondary to respiratory failure. Complete troponin EKG series. Received 60 mg IV Lasix dose. At home has been taking Bumex daily 2 mg and every other day taking metolazone. Has not been able to take or keep down any of her medications over the last 5 days. In ER also very hypertensive, blood pressure 190/98, hypertension possibly contributing to decompensation of CHF. (3) Acute renal failure: Without improvement of renal parameters this morning, BUN up to 114 creatinine 5. Has been producing urine. However, with persistent respiratory failure. Heparin was held overnight, dialysis catheter access obtained, additionally held after placement then resumed, underwent dialysis, 2.5 L removed. Later this evening also bleeding around dialysis catheter, pressure was held, surgery was notified, hold heparin further overnight. Catheter checks requested. Acute renal failure, superimposed on stage IV-V chronic kidney disease. BUN up to 101, creatinine one 5.3, with anion gap acidosis, so far producing urine. Monitor intake and output. Continue diuresis for the CHF, possible congestive nephropathy. Goldstein catheter placed for accurate AVANI. Repeat chemistry, monitor for risk of arrhythmia with cardiac monitoring. Reassess electrolytes. CK has been checked, mildly elevated 319. Reviewed kidney ultrasound. No obstructive uropathy. Qualifiers: Acute renal failure type: unspecified Qualified Code(s): N17.9 - Acute kidney failure, unspecified (4) Influenza A: As above. Not a candidate for Tamiflu at this time due to severe renal dysfunction. With poor oral intake, nausea, vomiting, unable to tolerate food drink or her medications over the last 5 days or so. Zofran as needed. PPI. (5) Troponin level elevated: With concern for ST depression on telemetry during dialysis, obtained troponin EKG series. Without ST depression noted, troponin with some worsening up to 225. Discussed with kitchen and counter worker, appreciate consultation. May suspect demand ischemia with respiratory failure, although declining troponin prior to admission, cannot exclude NSTEMI prior to admission. Consideration of further risk stratification and timing. Reviewed echocardiogram, without regional wall motion metabolic, but does have diffuse LV hypokinesis. Without worsening of EF. Decreasing trend. Do suspect demand ischemia secondary to respiratory failure, however, consider further risk stratification once her condition is more stable. Baselines 174, charge 164, discussed with her and her , moderate troponin elevation, does not have chest pain or pressure, but does have decompensated CHF, question of possible worsening cardiomyopathy, additional assessment by echocardiogram, possible demand ischemia secondary to respiratory failure, hypertension. As discussed with her cannot exclude NSTEMI possibly related in the last days as a trigger for her decompensation. Will give aspirin, she has been started on anticoagulation with heparin, monitor for risk of bleeding. Monitor PTT. Complete troponin EKG series. Echocardiogram pending. Monitor on telemetry with risk of arrhythmia. (6) Hypertension: Hypertensive on presentation. This morning blood pressure medications held his blood pressure on the soft side. Discontinue fentanyl. Continue to monitor blood pressures. Blood pressure is better but would benefit from further optimization going forward. Qualifiers: Hypertension type: primary hypertension Qualified Code(s): I10 - Essential (primary) hypertension Plan Stage IV-V kidney disease, has been following with [employer] in [place]. Previously was not yet at the point of starting dialysis. DM 2, sliding scale insulin. Resume consult carbohydrate diet when able to tolerate. HTN, Chronic venous insufficiency, Chronic urinary and bowel incontinence, Other medical problems PDMP PDMP Reviewed: Not Reviewed Attestations 2 Medical Necessity Statement*: Continue admission for assessment management of respiratory failure, CHF, renal failure. Coding Level of Care Code Critical Care >/= 30 minutes Critical care time (in minutes): 40 The high probability of a clinically significant, sudden or life threatening deterioration, as referenced in this documentation, required my full and direct attention, intervention and personal management. The critical care time shown is in addition to time spent performing any reported separately billable procedures and includes the following: [x] Data and vital sign review and interpretation [x ] Patient assessment, examination and intervention [x] Medication orders and management [x] Patient/Family updates as able [x] Care Coordination and Documentation. Diagnoses Acute respiratory failure J96.00 HFrEF (heart failure with reduced ejection fraction) I50.20 Acute renal failure, unspecified acute renal failure type N17.9 Acute renal failure type: unspecified Influenza A J10.1 Troponin level elevated R79.89 Primary hypertension I10 Hypertension type: primary hypertension
[2024-08-25] MEDS: heparin drip 25,000 UNIT/500 ML PREMIX 23 UNIT IV (13:54)
--- NOTE | 2024-08-25 14:26 | ECG_ITS ---
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
[2024-08-25 14:39] LABS: Troponin 5 2HR 219.8 ng/L (0-10); Troponin 5 2HR Delta -5.2 ABS# (0-10)
--- NOTE | 2024-08-25 15:15 | P.CONIM_ITS ---
<Statement entered by Carlos Mas M.D - 08/26/24 14:23> Patient was evaluated and cared for in conjunction with an advanced practice practitioner.? I personally examined the patient and reviewed the chart and all pertinent data including imaging, telemetry, and laboratory results.? I discussed the patient in detail with the advanced practice practitioner.? Please see? their note for complete consult note, testing results and agreed upon plan of care for the patient. GENERAL: Patient is intubated and sedated HEART: Regular S1 and S2 LUNGS: Diminished air entry bilaterally CENTRAL NERVOUS SYSTEM: Grossly nonfocal. EXTREMITIES: Lower extremities with out edema bilaterally. Troponin elevation Patient's troponin is downtrending. no significant change in LV function from before. Likely secondary to demand ischemia. At this time we will continue medical therapy. Once recovers, can consider stress testing. Providers/Reason For Consult 2 Consulting Physician/Specialty*: Dr. Mas Reason for Consult*: Elevated troponin Attending Physician: Esdras Pereira Primary Care Provider: Jacoby Spring MD History of Present Illness History of Present Illness Nikki Mercado is a 63 year old female who came into the emergency room a couple days ago with progressive shortness of breath chest congestion and nonproductive cough. She has not had any chest pain or discomfort during this hospital stay. She has no known history of CAD. She does have a history of congestive heart failure and chronic kidney disease. History of type 2 diabetes. On arrival to the ER her oxygen saturation was 76% on room air. She was found to have influenza type a. Her respiratory status declined and she was intubated. She does get dialysis. Currently on my assessment she is intubated and sedated although is somewhat responsive. Her proBNP was found to be greater than 70,000. Echo showed EF of 39% which is a little bit higher than before in 2022 in which it was found at 35%. Troponin at baseline was 225?2 119.8?154.9. EKG shows sinus rhythm with nonspecific T wave abnormalities. No ST elevation seen. X-ray showed stable cardiomegaly with bilateral pleural effusions, worse on the left with multifocal airspace opacities. VSS. Currently getting diuresed with Bumex 2 mg IVP Q12. Review of Systems 2 Narrative: Patient intubated and sedated. Unable to obtain review of systems. Medications/Allergies Home Medications ?Medication ?Instructions ?Recorded ?Confirmed ?Last Taken ?Type blood-glucose meter #1 ea 07/22/22 08/23/24 03/2 11/25 Rx potassium chloride 20 mEq 20 meq PO DAILY #90 tabs 08/23/24 08/22/24 Rx tablet,extended release bumetanide 2 mg tablet 2 mg PO DAILY #90 tabs 09/0708/23/24 08/22/24 Rx metolazone 2.5 mg tablet 2.5 mg PO DIRECTED #90 ta bs 09/08/23 08/23/24 08/21/24 Rx dexamethasone 0.7 mg intravitreal 0.7 mg intravitreal Q60D 12/09/23 08/23/24 Unknown History implant (Ozurdex) faricimab-svoa 6 mg/0.05 mL 6 mg intravitreal Q6M 12/2608/23/24 Unknown History intravitreal solution (Vabysmo) carvedilol 6.25 mg tablet 6.25 mg PO DAILY 07/27/2408/22/24 History ergocalciferol (vitamin D2) 1,250 1,250 mcg PO Q7D 08/23/24 08/20/24 History mcg (50,000 unit) capsule Allergies Allergy/AdvReac Type Severity Reaction Status Date / Time sweet potato Allergy ADR-Itching Verified 08/01/24 08:56 Current Medications Generic Name Dose Route Start Last Admin Trade Name Freq PRN Reason Stop Dose Admin Acetaminophen 650 mg 08/23/24 12:50 08/24/24 15:10 Acetaminophen 325 Mg Tablet PO 650 mg Q6H PRN Administration Mild/Mod Pain Or Temp >/= 101 Amlodipine Besylate 5 mg 08/23/24 12:40 08/25/24 08:31 Amlodipine 5 Mg Tablet PO Not Given DAILY JACINTA Aspirin 325 mg 08/23/24 14:25 08/25/24 08:19 Aspirin 325 Mg Tablet PO 325 mg DAILY JACINTA Administration Bumetanide 2 mg 08/23/24 15:30 08/25/24 03:32 Bumetanide 0.25 Mg/Ml Sdv 10 Ml IVP 2 mg Q12H JACINTA Administration Chlorhexidine Gluconate 1 applic 08/25/24 01:00 08/25/24 01:41 Chlorhexidine Gluconate 4% Btl 118 Ml TOPICAL 1 applic 0100 JACINTA Administration Hydralazine HCl 50 mg 08/23/24 21:00 08/25/24 14:56 Hydralazine 50 Mg Tablet PO Not Given TID JACINTA Heparin Sodium/Sodium Chloride 25,000 unit in 500 mls @ 0 mls/hr 08/23/24 09:15 08/25/24 13:54 Heparin Drip IV 14.09 unit/kg/hr CONT JACITNA 23 mls/hr Administration Protocol Per Protocol Piperacillin Sod/Tazobactam 50 mls @ 12.5 mls/hr 08/24/24 15:00 08/25/24 03:32 Sod 3.375 gm/ Sodium Chloride IV 12.5 mls/hr Q12H JACINTA Administration Protocol Propofol 1,000 mg in 100 mls @ 0 mls/hr 08/24/24 20:15 08/25/24 08:54 Diprivan IV 35 mcg/kg/min .Q0M JACINTA 14.6 mls/hr Administration Protocol Per Protocol Albumin Human 12.5 gm in 50 mls @ 60 mls/hr 08/25/24 09:08 08/25/24 11:28 Albumin IV 120 mls/hr PRN PRN Administration Hypotension and/or symptomatic Norepinephrine Bitartrate 4 mg in 250 mls @ 0 mls/hr 08/25/24 11:30 08/25/24 13:26 Levophed IV 0 mcg/min .Q0M JACINTA 0 mls/hr Titration Protocol Per Protocol Lanolin 1 applic 08/24/24 15:11 08/24/24 15:26 Lanolin Oint 7 Gm TOPICAL 1 applic PRN PRN Administration DRYNESS Metolazone 5 mg 08/23/24 15:30 08/25/24 08:19 Metolazone 5 Mg Tablet PO 5 mg DAILY JACINTA Administration Pantoprazole Sodium 40 mg 08/23/24 14:25 08/25/24 08:20 Pantoprazole 40 Mg Sdv IVP 40 mg DAILY JACINTA Administration PFSH Acute 2 PFSH: Medical History Newly diagnosed diabetes Contusion of left knee Lower leg edema Chronic kidney disease Hypothyroidism Congestive heart failure of unknown etiology Type 2 diabetes mellitus Hypertension Anemia Venous insufficiency (chronic) (peripheral) Cellulitis and abscess of buttock Surgical History History of esophagogastroduodenoscopy (09/29/23) History of colonoscopy (09/29/23) S/P cholecystectomy 1990s in [place], [place] Family History Father CAD (coronary artery disease) Cancer lung cancer Brother Diabetes Denies family history of Ovarian cyst Hyperlipidemia Chronic kidney disease (CKD) Anesthesia complication Family history of thyroid problem Bleeding disorder Hypertension Stroke Social History Smoking and tobacco/nicotine status: never used tobacco/nicotine Alcohol intake: never Substance/Drug Use: never Vitals/I&O/Wt Last Vital Signs Temp 98.4 F 08/25/24 11:13 Pulse 78 08/25/24 14:00 Resp 18 08/25/24 13:37 BP 132/58 08/25/24 12:45 Pulse Ox 92 08/25/24 13:37 O2 Del Method Mechanical Ventilation 08/25/24 12:45 O2 Flow Rate 60 08/24/24 18:17 FiO2 40 08/25/24 13:37 08/25/24 08/25/24 08/25/24 06:59 14:59 22:59 Intake Total 250.347 / 1563.685 108.166 / 108.166 Output Total 150 / 3825 50 / 50 Balance 100.347 / -2261.315 58.166 / 58.166 Weight last 48 hrs Weight 148 lb 8 oz Weight 153 lb 3.54 oz Weight 188 lb Physical Exam 2 Narrative: General: intubated, sedated HENMT: normoceophalic Muskuloskeletal: Full ROM Respiratory: Normal respiratory effort, diminished bilateral lower lobes, no use of accessory muscles Cardio: No JVD, regular rate, regular rhythm, S1 S2 normal, no murmurs Extremities: Full ROM, normal, normal capillary refill, no cyanosis, 2+ edema bilateral lower extremities Neuro: Responds to name Skin: No rashes or lesions noted, no wounds noted Urinary Catheter Management: Goldstein: Cath Placed During This Visit: yes Reason for Continuing Indwelling Catheter: Accurate Measurement of Urinary Output in Critically Ill Patients Urinary Catheter Date of Insertion: 08/23/24 Urinary Catheter Time of Insertion: 09:35 Data 08/25/24 13:52 08/25/24 03:41 Micro: Microbiology 08/25/24 09:40 Gram Stain - Final Sputum - Endotracheal Tube Aspirate 08/23/24 16:15 Blood Culture - Preliminary Blood NEGATIVE TO DATE 08/23/24 16:08 Blood Culture - Preliminary Blood NEGATIVE TO DATE A&P Assessment and plan (1) Congestive heart failure of unknown etiology: (2) Hypertension: Qualifiers: Hypertension type: primary hypertension Qualified Code(s): I10 - Essential (primary) hypertension (3) HFrEF (heart failure with reduced ejection fraction): (4) Troponin level elevated: Plan Patient has evidence of elevated troponin without history of chest pain. This may most likely due to demand ischemia. She has a chronic hx of systolic heart failure, and EF is about the same as baseline. At this time, recommend continued medical management. When patient recovers, may consider stress test. At this time will continue to monitor for EKG changes. Thank you for allowing us to care for this 63 year old female. PDMP PDMP Reviewed: Not Reviewed Consult Attestations 2 Medical Necessity Statement: Deferred to primary care team. Coding Level of Care Code Acute Code for Chg Fwd Diagnoses Congestive heart failure of unknown etiology I50.9 Primary hypertension I10 Hypertension type: primary hypertension HFrEF (heart failure with reduced ejection fraction) I50.20 Troponin level elevated R79.89
[2024-08-25] MEDS: propofol 1,000 MG/100 ML INJ 12.51 MG IV (15:28)
--- NOTE | 2024-08-25 17:28 | ECG_ITS ---
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: : 1960 Requested By: Esdras Pereira Order Number: [id number] Reading MD: CALE SOTELO Measurements Intervals [place] Rate: 86 P: 58 CA: 138 QRS: -13 QRSD: 106 T: -39 QT: 392 QTc: 470 Interpretive Statements SINUS RHYTHM INCOMPLETE RIGHT BUNDLE BRANCH BLOCK [90+ ms QRS DURATION, TERMINAL R IN V1/V2, 40+ ms S IN I/aVL/V4/V5/V6] NONSPECIFIC ST & T-WAVE ABNORMALITY Compared to ECG 08/25/2024 14:26:42 Incomplete right bundle-branch block now present T-wave abnormality still present Electronically Signed On 08-29-2024 23:52:36 INTERIOR SPECIALIST by CALE SOTELO [email or web address] [id number]
[2024-08-25 19:18] LABS: Troponin 5 6HR Delta 1.1 ng/L (0-12)
[2024-08-25 20:10] LABS: Partial Thromboplastin Time 160.3 SECONDS (23.9-36.7); Troponin 5 6HR 226.1 ng/L (0-10)
[2024-08-25] MEDS: hyDRALAzine 50 mg Tablet PO (22:20)
--- NOTE | 2024-08-25 22:29 | PC.NURSE ---
Heparin Drip: PTT came back high at 160.3 , Dr. Quezada notified and said to pause for four hours and then decrease by two units.
[2024-08-26] VITALS (81 sets, daily range): BP systolic 98–165; BP diastolic 38–84; PULSE 68–91; RESP 15–39; TEMP 36.6–38; O2SAT 90–99
[2024-08-26] MEDS: chlorhexidine gluconate 4% Btl 118 mL 1 APPLIC TOPICAL (00:30)
[2024-08-26] MEDS: bumetanide 0.25 mg/mL SDV 10 mL 2 MG IVP ×2 (03:29→15:13)
[2024-08-26] MEDS: piperacillin-tazobactam 3.375 GM in sodium chloride 0.9% (plus) 50 ML IV ×2 (03:29→15:12)
[2024-08-26] MEDS: propofol 1,000 MG/100 ML INJ 12.51 MG IV ×2 (04:39→12:02)
--- NOTE | 2024-08-26 06:00 | XRR_ITS ---
PROCEDURE INFORMATION: Exam: XR Chest Exam date and time: 08/26/2024 6:13 AM Age: 63 years old Clinical indication: Other: F/u resp failure; F/u for resp failure. Flu a positive. Intubated. ; Additional info: Hypoxia TECHNIQUE: Imaging protocol: Radiologic exam of the chest. Views: 1 view. COMPARISON: CR (CHEST, ) 08/24/2024 9:50 PM FINDINGS: Tubes, catheters and devices: ETT projects 1.1 cm from the sharan. Enteric tube with tip and side port within the stomach. Surgical joanna of the right lower quadrant which likely represents cholecystectomy clips. Lungs: Hypoinflation. Diffuse patchy opacities throughout the bilateral lung amaro. Pleural spaces: Unremarkable. No pleural effusion. No pneumothorax. Heart/Mediastinum: Cardiomegaly. Tortuous calcified aorta. Bones/joints: Unremarkable. XR/XR chest 1V portable [id number] IMPRESSION: Diffuse patchy opacities, similar to prior. ETT projects 1.1 cm from the sharan.
[2024-08-26 06:17] LABS: Alanine Aminotransferase 26 U/L (0-33); Albumin Level 2.6 g/dL (3.5-5.2); Alkaline Phosphatase 653 U/L (35-105); Anion Gap 20.4 (5-19); Aspartate Amino Transferase 70 U/L (0-32); Blood Urea Nitrogen 63 mg/dL (8-23); Calcium 7.7 mg/dL (8.5-10.5); Carbon Dioxide 20 mmol/L (22-29); Chloride 100 mmol/L (98-107); Creatinine Clr Calc Pharmacy 12.5865; Globulin 2.7 g/dL (1.3-4.6); Glomerular Filtration Rate 10.2 mL/min (90-130); Glucose 104 mg/dL (65-115); Magnesium 2.2 mg/dL (1.7-2.3); Osmolality Calculated 302 mOsm/kg (285-295); Phosphorus 4.4 mg/dL (2.5-4.5); Potassium 3.4 mmol/L (3.5-5.1); Sodium 137 mmol/L (136-145); Total Bilirubin 0.6 mg/dL (0.15-1.2); Total Protein 5.3 g/dL (6.6-8.7)
[2024-08-26 06:21] LABS: Hematocrit 24.6 % (36-47); Lymphocytes # 0.2 10^3/uL (0.8-4.8); Lymphocytes % 5.8 %; Mean Corpuscular HGB Conc 32.9 g/dL (30-55); Mean Corpuscular Hemoglobin 31.3 pg (27-33); Mean Platelet Volume 11.5 fL (7.4-10.4); Monocytes # 0.1 10^3/uL (0.2-0.9); Monocytes % 1.8 %; Neutrophils # 3.55 10^3/uL (1.8-7.7); Neutrophils % 89.6 %; Nucleated Red Blood Cells % 0 %; Platelet Count 82 10^3/cmm (157-399); Red Blood Count 2.59 10^6/uL (3.85-5.65); Red Cell Distribution Width 14.6 % (12.1-15.1); White Blood Count 3.96 10^3/uL (3.29-11.43)
[2024-08-26 06:31] LABS: ABG PCO2 39.5 mmHg (35-45); ABG PH Result 7.37 (7.35-7.45); Arterial Blood Gas Hematocrit 28.1 % (37-47); Base Excess ABG -2.3 mmol/L (-2.0-2.0); Blood Gas Allen Test Pos; Blood Gas Operator Identificat SAM; Blood Gas Sample Site Radial, right; Blood Gas Sample Type Arterial; HCO3 ABG 22.8 mmol/L (22-26); Oxygen Device VENT; PO2 ABG 46.7 mmHg (80.0-100.0); PO2 FiO2 Ratio Arterial Blood 133
[2024-08-26 06:33] LABS: Slide Review Slide Review Perform
[2024-08-26] MEDS: aspirin 325 mg Tablet PO (09:16)
[2024-08-26] MEDS: hyDRALAzine 50 mg Tablet PO (09:16)
[2024-08-26] MEDS: metOLazone 5 MG Tablet PO (09:16)
[2024-08-26] MEDS: amlodipine 5 mg Tablet PO (09:16)
[2024-08-26] MEDS: pantoprazole 40 mg SDV IVP ×2 (09:17→15:14)
--- NOTE | 2024-08-26 10:49 | CTR_ITS ---
PROCEDURE INFORMATION: Exam: CTA Chest With Contrast Exam date and time: 08/26/2024 1:24 PM Age: 63 years old Clinical indication: Shortness of breath; Additional info: [place] TECHNIQUE: Imaging protocol: Computed tomographic angiography of the chest with contrast. Exam focused on the arteries. 3D rendering (Not supervised by radiologist): MIP and/or 3D reconstructed images were created by the technologist. Radiation optimization: All CT scans at this facility use at least one of these dose optimization techniques: automated exposure control; mA and/or kV adjustment per patient size (includes targeted exams where dose is matched to clinical indication); or iterative reconstruction. Contrast material: OMNI 350; Contrast volume: 85 ml; Contrast route: INTRAVENOUS (IV); COMPARISON: CR (CHEST, ) 08/26/2024 6:13 AM RADIATION DOSE METRICS: Total DLP (mGy-cm): 418.83 FINDINGS: Tubes, catheters and devices: Endotracheal tube with tip terminating 1.3 cm from the sharan. Enteric tube with side port and tip terminating within stomach. Pulmonary arteries: Bolus timing is insufficient for definitive exclusion of small peripheral pulmonary emboli. Contrast within the pulmonary artery measures 228 Hounsfield units. No large pulmonary emboli. Pulmonary artery measures 2.6 cm. No findings of right heart strain. Aorta: Atherosclerotic calcifications. No aortic aneurysm. No aortic dissection. Thyroid: Enlarged calcified left thyroid lobe measuring 6.3 x 5.0 x 8.0 cm. Right thyroid lobe is normal in size with possible subcentimeter hypodense foci. Lungs: Diffuse patchy ground-glass and solid consolidative opacities with air bronchograms. Pleural spaces: Small right pleural effusion. Heart: Cardiomegaly with left atrium measuring 4.7 cm. Coronary arteries: Moderate to severe coronary artery calcifications. Lymph nodes: No enlarged lymph nodes. Liver: Query mild nodular appearance of the liver. Adrenal glands: Bilateral adrenal gland thickening. Bones/joints: Unremarkable. No acute fracture. Soft tissues: Unremarkable. CT/CT angio chest PE protcl [id number] IMPRESSION: 1. No large pulmonary emboli. 2. Multifocal pneumonia. 3. Enlarged calcified left thyroid lobe measuring up to 8 cm. Recommend thyroid ultrasound. 4. Moderate to severe coronary artery calcifications with cardiomegaly. 5. Query cirrhosis.
[2024-08-26] MEDS: oseltamivir phosphate 30 mg Capsule PO (11:39)
[2024-08-26] MEDS: vancomycin 2,000 MG/400 ML PIGGYBACK 200 MG IV (11:39)
[2024-08-26 11:51] LABS: Procalcitonin 8.52 ng/mL (0-0.5)
[2024-08-26] MEDS: iohexol 350 mg/mL 500 mL Btl (per mL) IV ×2 (13:37→14:32)
--- NOTE | 2024-08-26 14:07 | CTR_ITS ---
PROCEDURE INFORMATION: Exam: CTA Abdomen and Pelvis With Contrast Exam date and time: 08/26/2024 2:24 PM Age: 63 years old Clinical indication: Other: Gi bleed TECHNIQUE: Imaging protocol: Computed tomographic angiography of the abdomen and pelvis with contrast. Exam focused on the arteries. 3D rendering (Not supervised by radiologist): MIP and/or 3D reconstructed images were created by the technologist. Radiation optimization: All CT scans at this facility use at least one of these dose optimization techniques: automated exposure control; mA and/or kV adjustment per patient size (includes targeted exams where dose is matched to clinical indication); or iterative reconstruction. Contrast material: OMNI 350; Contrast volume: 100 ml; Contrast route: INTRAVENOUS (IV); COMPARISON: CT angio chest PE protcl [id number] 08/26/2024 1:24 PM RADIATION DOSE METRICS: Total DLP (mGy-cm): 821.99 FINDINGS: Lungs: See same day CT chest for lung findings. Aorta: No aortic aneurysm. No aortic dissection. Celiac trunk and mesenteric arteries: No occlusion or significant stenosis. Renal arteries: No occlusion or significant stenosis. Right iliac arteries: No occlusion or significant stenosis. Left iliac arteries: No occlusion or significant stenosis. Liver: Hepatomegaly. Query mild nodularity of the liver. Gallbladder and biliary ducts: Status post cholecystectomy with intrahepatic and extrahepatic biliary ductal dilatation. Pancreas: Focal hypodense lesion of the pancreatic body measuring 1.4 cm. Spleen: Unremarkable. No splenomegaly. Adrenal glands: Right adrenal gland nodule measuring 2.5 cm and measuring 25 Hounsfield units. Kidneys and ureters: Unremarkable. No solid mass. No hydronephrosis. Stomach and bowel: Unremarkable. No obstruction. No mucosal thickening. Appendix: No evidence of appendicitis. Intraperitoneal space: Small amount of perihepatic ascites which extends into the pelvis. Lymph nodes: Unremarkable. No enlarged lymph nodes. Urinary bladder: Goldstein catheter within the bladder. Reproductive: Surgical material of the bilateral fallopian tubes versus calcifications of the bilateral periuterine vessels. Bones/joints: No acute fracture. Diffuse degenerative change most significant at L4-L5. Soft tissues: Anasarca. CT/CT angio abdomen pelvis [id number] IMPRESSION: 1. No discrete GI bleed on this exam. Of note this study was not protocoled with noncontrast and delayed images to evaluate for GI bleed. 2. Query early cirrhosis with associated perihepatic ascites extending into the pelvis. Recommend MRI of the liver with contrast for further evaluation. 3. Focal hypodense lesion of the pancreatic body measuring 1.4 cm. This can be evaluated on the MRI of the liver. 4. Right adrenal gland nodule. This can be evaluated on the MRI of the liver.
[2024-08-26 15:07] LABS: Reflex FDPQ test REFLEX FDP QUEST TES
[2024-08-26 15:25] LABS: Hematocrit 20.6 % (36-47)
[2024-08-26 15:31] LABS: Lactic Sepsis W/Reflex 0.5 mmol/L (0.5-2.2)
[2024-08-26 15:52] LABS: INR 1.14 (0.8-1.2)
[2024-08-26 15:55] LABS: Fibrinogen 386 mg/dL (174-498)
[2024-08-26 16:02] LABS: Partial Thromboplastin Time 128.2 SECONDS (23.9-36.7)
[2024-08-26 16:07] LABS: D Dimer 7.66 ug/mLFEU (0-0.59)
--- NOTE | 2024-08-26 16:16 | PC.HD ---
Pre- and intra-HD heparin ordered; not given due to GI bleed. Baseball Inspector aware.
[2024-08-26] MEDS: tranexamic acid 1,000 MG/100 ML PREMIX 600 MG IV (16:22)
--- NOTE | 2024-08-26 16:31 | PM.CONSULT ---
Providers/Reason For Consult Consulting Physician/Specialty*: General Surgery Reason for Consult*: GI bleeding Attending Physician: Mc Bowman MD Primary Care Provider: Jacoby Spring MD History of Present Illness History of Present Illness Nikki Mercado is a 63 year old female Who was admitted to the hospital with respiratory failure, influenza, chronic kidney disease and who has required dialysis during this hospital stay. Currently patient is intubated and sedated. She does not to be downtrending her hemoglobin was found to have possible large GI bleeding as evidenced by significant bloody stool with clots. I was consulted for this finding. Review of Systems General: Reports: 10 or more systems reviewed and unremarkable except in HPI and below Medications/Allergies Home Medications ?Medication ?Instructions ?Recorded ?Confirmed ?Last Taken ?Type blood-glucose meter #1 ea 07/22/22 08/23/24 09/27/23 Rx potassium chloride 20 mEq 20 meq PO DAILY #90 tabs 08/18/23 08/23/24 08/22/24 Rx tablet,extended release bumetanide 2 mg tablet 2 mg PO DAILY #90 tabs 09/08/23 08/23/24 08/22/24 Rx metolazone 2.5 mg tablet 2.5 mg PO DIRECTED #90 tabs 09/08/23 08/23/24 08/21/24 Rx dexamethasone 0.7 mg intravitreal 0.7 mg intravitreal Q60D 12/09/23 08/23/24 Unknown History implant (Ozurdex) faricimab-svoa 6 mg/0.05 mL 6 mg intravitreal Q6M 12/09/23 08/23/24 Unknown History intravitreal solution (Vabysmo) carvedilol 6.25 mg tablet 6.25 mg PO DAILY 07/27/24 08/23/24 08/22/24 History ergocalciferol (vitamin D2) 1,250 1,250 mcg PO Q7D 07/27/24 08/23/24 08/20/24 History mcg (50,000 unit) capsule Allergies Allergy/AdvReac Type Severity Reaction Status Date / Time sweet potato Allergy ADR-Itching Verified 08/01/24 08:56 Current Medications Generic Name Dose Route Start Last Admin Trade Name Freq PRN Reason Stop Dose Admin Acetaminophen 650 mg 08/23/24 12:50 08/24/24 15:10 Acetaminophen 325 Mg Tablet PO 650 mg Q6H PRN Administration Mild/Mod Pain Or Temp >/= 101 Bumetanide 2 mg 08/23/24 15:30 08/26/24 15:13 Bumetanide 0.25 Mg/Ml Sdv 10 Ml IVP 2 mg Q12H JACINTA Administration Chlorhexidine Gluconate 1 applic 08/25/24 01:00 08/26/24 00:30 Chlorhexidine Gluconate 4% Btl 118 Ml TOPICAL 1 applic 0100 JACINTA Administration Piperacillin Sod/Tazobactam 50 mls @ 12.5 mls/hr 08/24/24 15:00 08/26/24 15:12 Sod 3.375 gm/ Sodium Chloride IV 12.5 mls/hr Q12H JACINTA Administration Protocol Propofol 1,000 mg in 100 mls @ 0 mls/hr 08/24/24 20:15 08/26/24 12:02 Diprivan IV 30 mcg/kg/min .Q0M JACINTA 12.51 mls/hr Administration Protocol Per Protocol Norepinephrine Bitartrate 4 mg in 250 mls @ 0 mls/hr 08/25/24 11:30 08/25/24 13:26 Levophed IV 0 mcg/min .Q0M JACINTA 0 mls/hr Titration Protocol Per Protocol Lanolin 1 applic 08/24/24 15:11 08/24/24 15:26 Lanolin Oint 7 Gm TOPICAL 1 applic PRN PRN Administration DRYNESS Pantoprazole Sodium 40 mg 08/26/24 14:15 08/26/24 15:14 Pantoprazole 40 Mg Sdv IVP 40 mg Q12H JACINTA Administration PFSH Acute PFSH: Medical History Newly diagnosed diabetes Contusion of left knee Lower leg edema Chronic kidney disease Hypothyroidism Congestive heart failure of unknown etiology Type 2 diabetes mellitus Hypertension Anemia Venous insufficiency (chronic) (peripheral) Cellulitis and abscess of buttock Surgical History History of esophagogastroduodenoscopy (09/29/23) History of colonoscopy (09/29/23) S/P cholecystectomy 1990s in [place], [place] Family History Father CAD (coronary artery disease) Cancer lung cancer Brother Diabetes Denies family history of Ovarian cyst Hyperlipidemia Chronic kidney disease (CKD) Anesthesia complication Family history of thyroid problem Bleeding disorder Hypertension Stroke Social History Smoking and tobacco/nicotine status: never used tobacco/nicotine Alcohol intake: never Substance/Drug Use: never Vitals/I&O/Wt Last Vital Signs Temp 100.2 F H 08/26/24 16:14 Pulse 84 08/26/24 16:14 Resp 27 H 08/26/24 16:14 BP 100/46 08/26/24 16:14 Pulse Ox 94 08/26/24 16:04 O2 Del Method Mechanical Ventilation 08/26/24 08:00 O2 Flow Rate 60 08/24/24 18:17 FiO2 50 08/26/24 16:04 08/26/24 08/26/24 08/26/24 06:59 14:59 22:59 Intake Total 92.223 / 1652.333 308.698 / 308.698 0 / 308.698 Output Total 30 / 2155 Balance 62.223 / -502.667 308.698 / 308.698 0 / 308.698 Weight last 48 hrs Weight 161 lb 9.6 oz Weight 154 lb 15.759 oz Weight 148 lb 8 oz Physical Exam Narrative: Patient is intubated and sedated, currently unresponsive. Abdominal exam is benign abdomen is soft and nontender. Effluent from the NG tube does not appear to be bloody Upon evaluation the was able to verify that there was a large amount of bloody stool in the bed consistent with a large lower GI bleed Urinary Catheter Management: Goldstein: Cath Placed During This Visit: yes Reason for Continuing Indwelling Catheter: Accurate Measurement of Urinary Output in Critically Ill Patients Urinary Catheter Date of Insertion: 08/23/24 Urinary Catheter Time of Insertion: 09:35 Data 08/26/24 14:56 08/26/24 05:13 Micro: Microbiology 08/25/24 09:40 Gram Stain - Final Sputum - Endotracheal Tube Aspirate Sputum Culture - Preliminary A&P Assessment and plan (1) GI bleed: Plan 63-year-old female who is admitted with respiratory failure influenza and who has multiple medical comorbidities now presenting with a clinical picture consistent with large volume lower GI bleed. A CT of the abdomen was done and was nondiagnostic as the timing of the scan was not correctly protocoled. She does have evidence of large GI bleed as noted with large amount of blood on the stool. She has been dropping the hemoglobin consistently and is currently hypotensive. With this findings I think best option for the patient will be transferred to high-level care for possible interventional radiology evaluation and possible embolization as attempting a colonoscopy with an unprepped bowel is not clinically indicated. While the patient is in our institution I can offer to do an upper endoscopy to evaluate for any upper GI bleeding source. Although this is lower in the differential as the effluent from the NG tube has not been bloody. In the interim we will start the patient and blood transfusion, hold heparin, she will receive a dose of tranexamic acid and we will continue with resuscitation overnightPatient will be initiating high-dose PPI. The plan will be for possible EGD tomorrow if patient has not been able to be transferred to higher level of care. PDMP PDMP Reviewed: Not Reviewed Coding Level of Care Code 74138 Diagnoses GI bleed K92.2
--- NOTE | 2024-08-26 17:13 | PC.NURSE ---
overall event of day went to ct chest before noon and when back from ct noted blood stool heparin and tube feeding stopped , doctor called back to ct for cta results noted , Doctor Slim called in to see pt ng to suction at this time . family in dialysis started to reverse contrast,, levophed started
--- NOTE | 2024-08-26 17:22 | PM.PN ---
Subjective Subjective: Seen multiple times during the day. Hospital course, labs appreciated. Patient seen with family member at bedside. Currently on propofol of 15. Not on fentanyl. Not on Levophed but later in the day required up to 4 while on hemodialysis. Overnight FiO2 had to be increased to 50%. Current ventilator setting of FiO2 of 50 %, tidal volume of 400, PEEP of 12. Appreciate input and output. Minimal urine output. Medications: Reviewed: Yes Vitals/I&O/Wt Last Vital Signs Temp 100.2 F H 08/26/24 16:14 Pulse 90 08/26/24 16:30 Resp 27 H 08/26/24 16:14 BP 138/53 08/26/24 16:30 Pulse Ox 96 08/26/24 16:30 O2 Del Method Mechanical Ventilation 08/26/24 08:00 O2 Flow Rate 60 08/24/24 18:17 FiO2 50 08/26/24 16:04 08/26/24 08/26/24 08/26/24 06:59 14:59 22:59 Intake Total 92.223 / 1652.333 308.698 / 308.698 3.75 / 312.448 Output Total / 2154 Balance 62.223 / -502.667 308.698 / 308.698 3.75 / 312.448 Weight last 48 hrs Weight 73.301 kg Weight 70.3 kg Weight 67.358 kg Physical Exam Narrative: General: Intubated, sedated, sick appearing, pallor present HEENT: PERRLA, pupils bilaterally equal and reactive Chest: Bilateral bronchial breath sounds all lung with occasional rhonchi, coarse Acra diffusely present all over lung amaro CVS: S1-S2 regular, no murmurs, no tachycardia, no gallops, no rubs Abdomen: Soft, nontender, no organomegaly, bowel sounds present Neuro: Intubated, sedated Urinary Catheter Management: Goldstein: Cath Placed During This Visit: yes Reason for Continuing Indwelling Catheter: Accurate Measurement of Urinary Output in Critically Ill Patients Urinary Catheter Date of Insertion: 08/23/24 Urinary Catheter Time of Insertion: 09:35 Data 08/26/24 14:56 08/26/24 05:13 Micro: Microbiology 08/25/24 09:40 Gram Stain - Final Sputum - Endotracheal Tube Aspirate Sputum Culture - Preliminary A&P Assessment and plan (1) Hemorrhagic shock: Most likely in setting of lower GI bleed. Hemoglobin trending down from 10.1-8.1 today. Found to have significant GI bleed and bowel movements with blood clots. Stop heparin drip. If hemoglobin continues to trend down in couple of hours after stopping heparin drip will plan for protamine sulfate. Will plan for half a dose than regular. Check DIC panel, lactate. CTA abdomen pelvis. Will consult surgery. Start on Protonix 40 mg IV every 12 hours. Recheck hemoglobin every 6 hour. Transfused 2 unit of PRBC. Target hemoglobin more than 7. Will transfuse if patient remains hemodynamically unstable. Target blood pressure mean over 65. Wean Levophed accordingly. (2) Lower GI bleed: (3) Acute respiratory failure: With concerns for ARDS. Combination of pneumonitis/pneumonia due to influenza A along with congestive heart failure. Check CTA chest to rule out PE. Oxygen supplementation keeping saturation over 90%. Continue with IV propofol and fentanyl. Daily ABG and chest x-ray. Follow-up blood culture, sputum culture. Check MRSA swab. Continue with IV Zosyn. Add vancomycin. Daily Vanco random levels. If MRSA swab negative will discontinue vancomycin. (4) ARDS (adult respiratory distress syndrome): Appreciate PF ratio. (5) Influenza A: Start on Tamiflu 30 mg oral. Tamiflu 30 mg oral one-time. Will plan for repeat Tamiflu 30 mg as per protocol after each dialysis for overall 5 days. (6) HFrEF (heart failure with reduced ejection fraction): Echocardiogram done earlier in admission shows an EF of 39% with moderate decreased LV function, moderately increased LA size. Patient on hemodialysis given concerns for MARKEL and CKD. Strict input output charting, daily weights. Will plan for net negative. Monitor blood pressures. Given shock for now we will discontinue all antihypertensives including hydralazine and amlodipine. Cardiogenic shock for now we will continue HD, bumetanide, metolazone. Monitor I&O Monitor for risk of electro deficiency. Monitor on telemetry. With concern for ST depression on telemetry during dialysis, obtained troponin EKG series. (7) Acute kidney injury superimposed on stage 5 chronic kidney disease, not on chronic dialysis: Appreciate nephrology recommendations. Patient has a history of CKD in the past. Currently on hemodialysis. Continue to follow. High likelihood of requiring hemodialysis as an outpatient. No letter abnormalities. Dialysis as needed. (8) Troponin level elevated: High likelihood of type II AK. No regional wall motion normality on echocardiogram. Appreciate cardiology recommendations. Given concerns for hemorrhagic shock with ongoing GI bleed patient is at a higher risk of mortality and morbidity because of GI bleed currently as compared to possible cardiac event given patient being at baseline EF, trending down troponin cycle, no regional wall motion abnormality. Stopping heparin drip and reversing with protamine as above. Hold off on Plavix for now. Patient does have worsening thrombocytopenia. Will continue to monitor. (9) Hypertension: Qualifiers: Hypertension type: primary hypertension Qualified Code(s): I10 - Essential (primary) hypertension Plan Anesthesia: Currently on propofol. Add fentanyl. Glycemic control: A1c 5.8 last in May 2024. No concerns for type 2 diabetes mellitus. Nutrition: Hold off on tube feeds given concerns for GI bleed. CODE STATUS: Discussed in detail with patient's at bedside. Full code. PUD prophylaxis: Protonix 40 mg every 12 hourly DVT prophylaxis: SCD for DVT prophylaxis. Discontinue heparin with concerns for hemorrhagic shock. Patient if developing hemorrhagic shock with concerns for lower GI bleed requiring multiple blood transfusion, Levophed. Appreciate surgical recommendations as patient will most likely need a contact lens curve grinder and possible IR embolization. Discussed possible transfer to a tertiary center as both contact lens curve grinder and IR is not available at our hospital. Patient's family is agreeable. Care discussed in detail with dock worker at [facility]. Patient has been accepted to [facility] by Dr. Weaver. Currently awaiting bed. Continue with care at ICU for now. Severely guarded prognosis. This documentation was created by [employer] document management consultant software. Every effort was made to ensure accuracy of document management consultant. Any obvious errors or omissions should be clarified with the author of the document. PDMP PDMP Reviewed: Not Reviewed Attestations Medical Necessity Statement*: Requires further hospitalization for management of hemorrhagic shock in setting of lower GI bleed, respiratory failure in setting of ARDS, influenza A, MARKEL on CKD requiring hemodialysis Critical Care Time: The high probability of a clinically significant, sudden or life threatening deterioration of the patient's [cardiac, pulmonary, GI, renal] system(s) required my full and direct attention, intervention and personal management. The critical care time is as shown. This time is in addition to time spent performing any reported procedures but includes the following: [x] Data and vital sign review and interpretation [x] Patient assessment, examination and intervention [x] Documentation [x] Medication orders and management Critical Care Time (min): 100 Coding Level of Care Code Critical Care >/= 30 minutes Critical care time (in minutes): 100 The high probability of a clinically significant, sudden or life threatening deterioration, as referenced in this documentation, required my full and direct attention, intervention and personal management. The critical care time shown is in addition to time spent performing any reported separately billable procedures and includes the following: [x] Data and vital sign review and interpretation [x] Patient assessment, examination and intervention [x] Medication orders and management [x] Patient/Family updates as able [x] Care Coordination and Documentation. Other Coding Information This patient has a high probability of clinically significant, sudden or life threatening deterioration of the patient's (neurological/pulmonary/cardiac/renal/ID/endocrine) systems required my full, direct attention, the highest level of physician preparedness for urgent intervention and personal management. I managed/supervised life or organ supporting interventions that required frequent physician assessment. I devoted my full attention in the ICU to the direct care of this patient for the period of time indicated above. Time I spent with family or surrogate(s) is included only if the patient was incapable of providing necessary information or participating in decision making. This time includes the following services provided: Telemetry review Mechanical Ventilation Hemodynamic interpretation, assessment and management Review and interpretation of CXR Review and interpretation of lab values Review and interpretation of microbiologic data and culture results Review of medications and administration Review and interpretation of Nutrition requirements and management Discussion of management with other consultants and services Clinical update to family members Diagnoses Hemorrhagic shock R57.8 Lower GI bleed K92.2 Acute respiratory failure J96.00 ARDS (adult respiratory distress syndrome) J80 Influenza A J10.1 HFrEF (heart failure with reduced ejection fraction) I50.20 Acute kidney injury superimposed on stage 5 chronic kidney disease, not on chronic dialysis N17.9; N18.5 Troponin level elevated R79.89 Primary hypertension I10 Hypertension type: primary hypertension
[2024-08-26] MEDS: protamine 10 mg/mL SDV 5 mL 25 MG IVP (17:29)
--- NOTE | 2024-08-26 18:11 | PHA.VACGOAL ---
Vancomycin Goal - Goal Vancomycin Goal:: 15-20 mg/L Vancomycin Indication:: Other - Therapy Day of therpy:: Day []of [] . Actual body weight (kg): 73.301 kg - Data Labs: WBC 3.96 10^3/uL (3.29-11.43) 08/26/24 05:13 RBC 2.59 10^6/uL (3.85-5.65) L 08/26/24 05:13 Hgb 6.70 g/dL (11.27-16.99) L 08/26/24 14:56 Hct 20.6 % (36-47) L* 08/26/24 14:56 MCV 95.0 fl (85-98) 08/26/24 05:13 MCH 31.3 pg (27-33) 08/26/24 05:13 MCHC 32.9 g/dL (30-55) 08/26/24 05:13 RDW 14.6 % (12.1-15.1) 08/26/24 05:13 Sodium 137 mmol/L (136-145) 08/26/24 05:13 Potassium 3.4 mmol/L (3.5-5.1) L 08/26/24 05:13 Chloride 100 mmol/L (98-107) 08/26/24 05:13 Carbon Dioxide 20 mmol/L (22-29) L 08/26/24 05:13 Anion Gap 20.4 (5-19) H 08/26/24 05:13 BUN 63 mg/dL (8-23) H 08/26/24 05:13 Creatinine 4.4 mg/dL (0.5-0.9) H 08/26/24 05:13 GFR Calculation 10.2 mL/min (90-130) L 08/26/24 05:13 Treatment plan:: new consult Regimen:: No history of vancomycin found. Received 2000 mg load dose. Calculated CrCL is less than 30 ml/min will start pulse dosing. Obtain vancomycin 24 hours post load.
--- NOTE | 2024-08-26 19:09 | PC.HD ---
Of note, post-dialysis weight indicating an 8.5 kg loss is inaccurate. During dialysis, patient had copious amounts of bloody stool, requiring changing of all linens. Weight change is inaccurate due to difference in amount of linens on bed during weighing.
--- NOTE | 2024-08-26 19:57 | P.PN_ITS ---
Subjective 2 Subjective: on vent Medications: Reviewed: Yes Vitals/I&O/Wt Last Vital Signs Temp 100.4 F H 08/26/24 19:08 Pulse 90 08/26/24 19:08 Resp 26 H 08/26/24 19:08 BP 165/68 08/26/24 19:08 Pulse Ox 95 08/26/24 17:34 O2 Del Method Mechanical Ventilation 08/26/24 08:00 O2 Flow Rate 60 08/24/24 18:17 FiO2 50 08/26/24 17:34 08/26/24 08/26/24 08/26/24 06:59 14:59 22:59 Intake Total 92.223 / 1652.333 336.181 / 336.181 595.75 / 931.931 Output Total 2154 2500 / 2500 Balance 62.223 / -502.667 336.181 / 336.181 -1904.25 / -1568.069 Weight last 48 hrs Weight 76 kg Weight 73.301 kg Weight 70.3 kg Weight 67.358 kg Physical Exam 2 Narrative: Patient is intubated and sedated Urinary Catheter Management: Goldstein: Cath Placed During This Visit: yes Reason for Continuing Indwelling Catheter: Accurate Measurement of Urinary Output in Critically Ill Patients Urinary Catheter Date of Insertion: 08/23/24 Urinary Catheter Time of Insertion: 09:35 Data 08/26/24 14:56 08/26/24 05:13 Micro: Microbiology 08/25/24 09:40 Gram Stain - Final Sputum - Endotracheal Tube Aspirate Sputum Culture - Preliminary A&P Assessment and plan (1) Acute kidney injury superimposed on stage 5 chronic kidney disease, not on chronic dialysis: 1. Acute on chronic kidney disease stage V->ESRD : Patient followed by [facility] as outpatient -Patient admitted with pulmonary edema, anemia and metabolic acidosis. -Given advanced CKD and respiratory distress recommended initiation of hemodialysis. Patient consents for HD initiation. s/p temporary HD catheter placement and HD started, plan for CTA chest , HD #3 today, limit UF due to hypotension 2. Acute respiratory failure: In the setting of pulmonary and influenza,, supportive care, HD as above 2. Metabolic acidosis: In the setting of MARKEL, monitor 3. Pancytopenia, question etiology, will check iron studies and order JELENA 4. Hypertension: Blood pressures elevated: Resume carvedilol and will add hydralazine 5. Anemia : Gi bleed with hemmorragic shock, avoid heparin with hd , transfuse as needed Patient evaluated using audiovisual cart. Time spent 40 minutes. PDMP PDMP Reviewed: Not Reviewed Attestations 2 Medical Necessity Statement*: per manuel Coding Level of Care Code Acute Code for Chg Fwd Diagnoses Acute kidney injury superimposed on stage 5 chronic kidney disease, not on chronic dialysis N17.9; N18.5
--- NOTE | 2024-08-26 20:16 | PC.NURSE ---
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 Patient's took all belongings. Patient's present for the transfer. Update called to [facility] with ETA from [facility].
--- NOTE | 2024-08-26 21:29 | PC.NURSE ---
Addendum entered by Sapphire Carrera RN 08/26/24 21:42: This nurse witnessed waste of 44 ml of propofol by CAMRYN Cardoso. Original Note: 44 ml of propofol wasted, 180 ml of fentanyl wasted. Sapphire COWAN witnessed.
[2024-08-31 02:31] LABS: Fibrinogen Degradation Product 10 mcg/mL (LESS THAN 5)
== END 2024-08-26 20:07 | disposition short-term general hospital (02) | DRG 280 ==
LOC: ER 12:41 → ICU 13:19
PROVIDERS: Hospitalist; Internal Medicine; Admitting Provider Internal Medicine; Emergency Provider Family Medicine; PCP Family Medicine; Visit Provider Student in an Organized Health Care Education/Training Program
DX: I13.0 Hypertensive heart and chronic kidney disease with heart failure and stage 1 through stage 4 chronic kidney disease, or unspecified chronic kidney disease (principal); I50.23 Acute on chronic systolic (congestive) heart failure; I21.A1 Myocardial infarction type 2; R57.8 Other shock; J96.01 Acute respiratory failure with hypoxia; J10.01 Influenza due to other identified influenza virus with the same other identified influenza virus pneumonia; R57.0 Cardiogenic shock; K92.1 Melena; N18.5 Chronic kidney disease, stage 5; N17.9 Acute kidney failure, unspecified; E87.20 Acidosis, unspecified; D61.818 Other pancytopenia; J98.4 Other disorders of lung; I13.2 Hypertensive heart and chronic kidney disease with heart failure and with stage 5 chronic kidney disease, or end stage renal disease; E11.22 Type 2 diabetes mellitus with diabetic chronic kidney disease; I87.2 Venous insufficiency (chronic) (peripheral); R15.9 Full incontinence of feces; R32 Unspecified urinary incontinence; I16.0 Hypertensive urgency; Z79.02 Long term (current) use of antithrombotics/antiplatelets
CPT/HCPCS: 36415; 36430; 36600; 51702; 71045; 71275; 74174; 76770; 80051; 80053; 80069; 81001; 82330; 82550; 82803; 82805; 83605; 83735; 83880; 84100; 84145; 84484; 85014; 85018; 85025; 85362; 85378; 85384; 85610; 85730; 86706; 86850; 86900; 86920; 87040; 87070; 87205; 87340; 87637; 90935; 93005; 93306; 93970; 94002; 94003; 94640; 94664; 94799; 96365; 96375; 96376; 99285; J0330; J0360; J1644; J1940; J2470; J2543; J2704; J2720; J2916; J2919; J3010; J3372; J3490; P9016; P9047; Q3014

== ENCOUNTER → 2024-11-01 10:49 | Outpatient (BNVA) | payer OTHER, SELFPAY | PROVIDERS: PCP Family Medicine; Visit Provider Family Medicine | DX: J80 Acute respiratory distress syndrome (principal) | CPT/HCPCS: 83036; 85025 ==

== ENCOUNTER 2024-11-02 05:00 | Outpatient (RCR) | payer OTHER, SELFPAY | END 2024-12-02 23:59 | disposition home or self-care (01) | LOC: WPT 05:00 | PROVIDERS: PCP Family Medicine; Visit Provider Physical Medicine & Rehabilitation | DX: I63.00 Cerebral infarction due to thrombosis of unspecified precerebral artery (principal); J96.01 Acute respiratory failure with hypoxia | CPT/HCPCS: 97110; 97163; 97530 ==

== ENCOUNTER → 2024-11-02 15:48 | Outpatient (BNVA) | payer OTHER, SELFPAY | PROVIDERS: PCP Family Medicine; Visit Provider Family Medicine | DX: J80 Acute respiratory distress syndrome (principal) | CPT/HCPCS: 80053; 84443 ==

== ENCOUNTER 2024-12-03 05:00 | Outpatient (RCR) | payer OTHER, SELFPAY | END 2025-01-01 23:59 | disposition home or self-care (01) | LOC: WPT 05:00 | PROVIDERS: PCP Family Medicine; Visit Provider Physical Medicine & Rehabilitation | DX: I63.00 Cerebral infarction due to thrombosis of unspecified precerebral artery (principal) | CPT/HCPCS: 97110; 97112; 97116; 97530 ==

== ENCOUNTER → 2024-12-26 14:51 | Outpatient (BNVA) | payer OTHER, SELFPAY | PROVIDERS: PCP Family Medicine; Visit Provider Family Medicine | DX: L65.9 Nonscarring hair loss, unspecified (principal) | CPT/HCPCS: 84439; 84443 ==

== ENCOUNTER → 2024-12-29 08:29 | Outpatient (BNVA) | payer OTHER, SELFPAY | PROVIDERS: PCP Family Medicine; Visit Provider Nurse Practitioner Family | DX: R31.9 Hematuria, unspecified (principal) | CPT/HCPCS: 81003; 87086 ==

== ENCOUNTER 2025-01-02 05:00 | Outpatient (RCR) | payer OTHER, SELFPAY | END 2025-02-01 23:59 | disposition home or self-care (01) | LOC: WPT 05:00 | PROVIDERS: PCP Family Medicine; Visit Provider Physical Medicine & Rehabilitation | DX: I63.00 Cerebral infarction due to thrombosis of unspecified precerebral artery (principal) | CPT/HCPCS: 97110; 97112; 97116; 97530 ==

== ENCOUNTER → 2025-01-30 15:44 | Outpatient (BNVA) | payer OTHER, SELFPAY | PROVIDERS: PCP Family Medicine; Visit Provider Family Medicine | DX: E89.0 Postprocedural hypothyroidism (principal); I10 Essential (primary) hypertension; E11.9 Type 2 diabetes mellitus without complications | CPT/HCPCS: 80053; 83036; 84443; 85025 ==

== ENCOUNTER → 2025-02-01 08:58 | Outpatient (BNVA) | payer OTHER, SELFPAY | PROVIDERS: PCP Family Medicine; Visit Provider Family Medicine | DX: N17.9 Acute kidney failure, unspecified (principal); N18.5 Chronic kidney disease, stage 5 | CPT/HCPCS: 84100 ==

== ENCOUNTER 2025-02-02 06:00 | Outpatient (RCR) | payer OTHER, SELFPAY | END 2025-03-04 23:59 | disposition home or self-care (01) | LOC: WPT 06:00 | PROVIDERS: PCP Family Medicine; Visit Provider Physical Medicine & Rehabilitation | DX: I63.00 Cerebral infarction due to thrombosis of unspecified precerebral artery (principal) | CPT/HCPCS: 97110; 97112; 97116; 97140; 97530 ==

== ENCOUNTER 2025-03-05 05:00 | Outpatient (RCR) | payer OTHER, SELFPAY | END 2025-04-03 23:59 | disposition home or self-care (01) | LOC: WPT 05:00 | PROVIDERS: PCP Family Medicine; Visit Provider Physical Medicine & Rehabilitation | DX: I63.00 Cerebral infarction due to thrombosis of unspecified precerebral artery (principal); J96.01 Acute respiratory failure with hypoxia | CPT/HCPCS: 97110; 97116; 97530 ==

== ENCOUNTER → 2025-06-25 15:29 | Outpatient (BNVA) | payer OTHER, SELFPAY | PROVIDERS: PCP Family Medicine; Visit Provider Family Medicine | DX: N17.9 Acute kidney failure, unspecified (principal); I10 Essential (primary) hypertension; E89.0 Postprocedural hypothyroidism | CPT/HCPCS: 80053; 81003; 84443; 85025; 87086 ==